=== PATIENT | male | born 1945 | race Caucasian/White ===

== ENCOUNTER 2016-12-13 00:47 | Outpatient (CLI) | payer MEDICARE, OTHER | END 2016-12-13 00:48 | disposition critical access hospital (66) | LOC: EMS 00:47 | PROVIDERS: ATTEND Surgery | DX: R06.00 Dyspnea, unspecified (principal) | CPT/HCPCS: A0425; A0429 ==

== ENCOUNTER 2016-12-13 01:25 | Emergency (ER) | payer MEDICARE, OTHER ==
[2016-12-13 01:50] LABS: BASOPHILS # (AUTO) 0.1 10^3/uL (0.0-0.1); BASOPHILS % (AUTO) 1.1 %; EOSINOPHILS # (AUTO) 0.4 10^3/uL (0.0-0.7); EOSINOPHILS % (AUTO) 4.3 %; HCT - HEMATOCRIT 40.4 % (42.0-52.0); LYMPHOCYTES % (AUTO) 19.3 %; MEAN CORPUSCULAR HEMOGLOBIN 26.4 pg (27.0-31.0); MEAN CORPUSCULAR HGB CONC 32.2 g/dL (32.0-36.0); MEAN PLATELET VOLUME 6.9 fL (7.4-11.4); MONOCYTES # (AUTO) 0.7 10^3/uL (0.0-1.0); MONOCYTES % (AUTO) 7.3 %; NEUTROPHILS # (AUTO) 6.9 10^3/uL (1.5-6.6); RED BLOOD COUNT 4.93 10^6/uL (4.70-6.10); RED CELL DISTRIBUTION WIDTH 14.7 % (12.0-15.0); UNCORRECTED WHITE BLOOD COUNT 10.2 x10^3/uL; WHITE BLOOD COUNT 10.2 x10^3/uL (4.8-10.8)
[2016-12-13 02:07] LABS: ALBUMIN/GLOBULIN RATIO 1.2 (1.0-2.2); BILIRUBIN,TOTAL 0.4 mg/dL (0.2-1.0); CALCIUM 8.6 mg/dL (8.5-10.3); CREATININE 1.4 mg/dL (0.6-1.2); TOTAL PROTEIN 7.1 g/dL (6.7-8.2)
[2016-12-13] MEDS ORDERED: POTASSIUM CHLORIDE 20 MEQ TABLET PO STA (02:15)
[2016-12-13] MEDS ORDERED: POTASSIUM CHLORIDE 20 MEQ TABLET PO ONE (02:15)
--- NOTE | 2016-12-13 02:25 | XRAY Preliminary Report ---
Exam: XR Chest 1 View IMPRESSION: Stable appearance of the chest without acute cardiopulmonary abnormality. [facility] SITE ID: [id number]
--- NOTE | 2016-12-13 02:28 | XRAY Report ---
EXAM: CHEST RADIOGRAPHY EXAM DATE: 12/13/2016 01:58 AM. CLINICAL HISTORY: Shortness of breath COMPARISON: 05/31/2016 TECHNIQUE: 1 view. FINDINGS: Lungs/Pleura: No focal opacities evident. No pleural effusion. No pneumothorax. Mediastinum: Within exam limitations, cardiomediastinal contour is normal. Other: Nor cervical spinal fixation hardware is partially visualized. There is mild degenerative rolon ge about the shoulder bilaterally. Degenerative change within the spine. IMPRESSION: Stable appearance of the chest without acute cardiopulmonary abnormality. [facility] Referring Provider Line: [phone] SITE ID: [id number]
--- NOTE | 2016-12-13 02:36 | ED Physician Documentation ---
PD HPI DYSPNEA - Stated complaint Stated Complaint: SOA - Chief complaint Chief Complaint: Resp - History obtained from History obtained from: Patient, Family, EMS - History of Present Illness Timing - onset: How many hours ago (3) Timing - onset during: Rest Timing - details: Gradual onset Improved by: O2, Inhaler/neb Worsened by: Exertion Associated symptoms: No: Fever, Cough, Chest pain / discomfort, Palpitations, Diaphoresis, Bilateral edema, Unilateral edema Similar symptoms before: Work up / diagnostics, Treatment, Follow up Recently seen: Not recently seen - Additional information Additional information: Patient is a 71 year old male with a history of dementia and copd who is presenting for shortness of breath. according to patient and ems, earlier today patient had an episode of shortness of breath. gave the patient a nebulizer treatment. When ems arrived patient was well appearing and at his baseline oxygen and mental status. Upon initial evaluation in the emergency department patient was asymptomatic. Review of Systems Unable to obtain: Dementia PD PAST MEDICAL HISTORY - Past Medical History Cardiovascular: Hypertension, High cholesterol Respiratory: COPD, Emphysema Neuro: Dementia, CVA Endocrine/Autoimmune: Type 2 diabetes GI: GERD : Benign prostate hypertrophy HEENT: None Psych: Depression Musculoskeletal: None Derm: None - Past Surgical History Past Surgical History: Yes Ortho: Spine surgery - Present Medications Home Medications: Ambulatory Orders Medication Instructions Recorded Confirmed Albuterol Sulfate [Proair Hfa 8.5 gm 05/31/16 Inhaler] Aspirin 81 mg 05/31/16 Betamethasone/Propylene Glyc 50 gm 05/31/16 [Betamethasone Dp Aug 0.05% Crm] Cholestyramine (with Sugar) 4 gm 05/31/16 [Cholestyramine Packet] Citalopram [CeleXA] 10 mg 05/31/16 Fluticasone/Vilanterol [Breo 1 each 05/31/16 Ellipta 200-25 Mcg INH] Furosemide [Lasix] 20 mg 05/31/16 Insulin Glargine [Lantus Solostar] 80 unit 05/31/16 Ipratropium/Albuterol Sulfate 3 ml 05/31/16 [Iprat-Albut 0.5-3(2.5) mg/3 ml] Ketoconazole 15 gm 05/31/16 Loratadine [Allergy Relief] 10 mg 05/31/16 Metformin HCl 500 mg 05/31/16 Omeprazole 20 mg 05/31/16 Ondansetron [Ondansetron Odt] 4 mg 05/31/16 Tamsulosin [Flomax] 0.4 mg 05/31/16 Theophylline Anhydrous [J[place]on-24] 200 mg 05/31/16 Tiotropium [place] [Spiriva] 18 mcg 05/31/16 Tobramycin/Dexamethasone [Tobradex 3.5 gm 05/31/16 Eye Ointment] Triamcinolone 0.5% Cream [Kenalog 15 applic 05/31/16 0.5% Cream] amLODIPine [Norvasc] 10 mg 05/31/16 diphenhydrAMINE [Benadryl] 25 mg 05/31/16 - Allergies Allergies/Adverse Reactions: Allergies Allergy/AdvReac Type Severity Reaction Status Date / Time Sulfa (Sulfonamide Allergy Intermediate Nausea Verified 12/13/16 01:33 Antibiotics) felodipine AdvReac Intermediate Dizziness Verified 12/13/16 01:33 fenofibrate nanocrystallized AdvReac Intermediate Cramps Verified 12/13/16 01:33 * [From Tricor] fenofibrate,micronized * AdvReac Intermediate Cramps Verified 12/13/16 01:33 [From Tricor] losartan [Losartan] AdvReac Intermediate Respiratory Verified 12/13/16 01:33 metoprolol AdvReac Intermediate Respiratory Verified 12/13/16 01:33 minoxidil AdvReac Intermediate Emesis Verified 12/13/16 01:33 clonidine AdvReac Mild Cramps Verified 12/13/16 01:33 donepezil [Donepezil] AdvReac Unknown Unknown Verified 12/13/16 01:33 iodine AdvReac Unknown Unknown Verified 12/13/16 01:33 furosemide AdvReac Nausea Verified 12/13/16 01:33 haloperidol AdvReac Hallucinati Verified 12/13/16 01:33 ons hydrochlorothiazide AdvReac Emesis Verified 12/13/16 01:33 - Social History Does the pt smoke?: No Smoking Status: Never smoker Does the pt drink ETOH?: No Does the pt have substance abuse?: No - Immunizations Immunizations are current?: Yes - POLST Patient has POLST: Yes PD ED PE NORMAL - Vitals Vital signs reviewed: Yes - General General: Alert and oriented X 3, No acute distress, Well developed/nourished - HEENT HEENT: Atraumatic, PERRL, Pharynx benign - Neck Neck: Supple, no meningeal sign, No JVD - Cardiac Cardiac: RRR, No murmur, No rub - Respiratory Respiratory: No respiratory distress - Abdomen Abdomen: Soft, Non tender, Non distended - Derm Derm: Normal color, Warm and dry, No rash - Extremities Extremities: No deformity, No tenderness to palpate, No edema, No calf tenderness / cord - Neuro Neuro: No motor deficit, No sensory deficit, Normal speech - Psych Psych: Normal affect Results - Vitals Vitals: Vital Signs - 24 hr 12/13/16 01:28 Temperature 36.6 C Heart Rate 76 Respiratory 22 Rate Blood Pressure 189/75 H O2 Saturation 97 Oxygen O2 Source Nasal cannula Oxygen Flow Rate 4 - EKG (time done) 0136 Rate: Rate (enter#) (71) Rhythm: NSR [place]: Normal Intervals: Normal AR QRS: Normal Compare to prior EKG: Unchanged from prior EKG - Labs Labs: Laboratory Tests 12/13/16 12/13/16 12/13/16 01:41 01:41 01:41 WBC 10.2 RBC 4.93 Hgb 13.0 L Hct 40.4 L MCV 82.0 MCH 26.4 L MCHC 32.2 RDW 14.7 Plt Count 258 MPV 6.9 L Neut # 6.9 H Lymph # 2.0 [place] # 0.7 Eos # 0.4 Baso # 0.1 Absolute Nucleated RBC 0.00 Nucleated RBCs 0.0 Sodium 140 Potassium 3.0 L Chloride 106 Carbon Dioxide 24 Anion Gap 10.0 BUN 14 Creatinine 1.4 H Estimated GFR (MDRD) 50 L Glucose 151 H Calcium 8.6 Total Bilirubin 0.4 AST 18 ALT 12 Alkaline Phosphatase 71 Troponin I < 0.04 B-Natriuretic Peptide Total Protein 7.1 Albumin 3.8 Globulin 3.3 Albumin/Globulin Ratio 1.2 Lipase 35 12/13/16 01:41 WBC RBC Hgb Hct MCV MCH MCHC RDW Plt Count MPV Neut # Lymph # [place] # Eos # Baso # Absolute Nucleated RBC Nucleated RBCs Sodium Potassium Chloride Carbon Dioxide Anion Gap BUN Creatinine Estimated GFR (MDRD) Glucose Calcium Total Bilirubin AST ALT Alkaline Phosphatase Troponin I B-Natriuretic Peptide 12 Total Protein Albumin Globulin Albumin/Globulin Ratio Lipase - Rads (name of study) chest x-ray Radiology: Final report received (no acute changes on chest x-ray) PD MEDICAL DECISION MAKING - ED course Complexity details: reviewed old records, reviewed results, re-evaluated patient , considered differential, d/w patient, d/w family ED course: Patient was seen and examined at bedside. Patient was on his O2 which he takes at home. patient was in no distress and no active wheezing was appreciated. ekg and chest x-ray were unchanged. previous results were reviewed and were within normal limits. Patient's diagnostics were also within normal limits. When patient's arrived the situation was discussed with her and it seems that she is begining to be getting overwhelmed by taking care of the patient and she stated at the follow up appointment with the pmd next week she would seek jail care. Patient required no further work up at this time and was stable for discharge with outpatient follow up. Departure - Departure Disposition: 01 Home, Self Care Clinical Impression: Moderate COPD (chronic obstructive pulmonary disease), Moderate chronic obstructive pulmonary disease Condition: Good Instructions: ED COPD Flare Follow-Up: Adrian Fletcher MD [Primary Care Provider] - Within 1 week Comments: Your diagnostics today were within normal limits. there were no major abnormalities appreciated. You should make sure that you stay away from triggers including smoking and allergens. You should go to your doctor appointment with your pmd. I would recommend a stress test and an echocardiogram. You should continue with your home medications. You may return to the emergency department at any time for new, worsening or uncontrollable symptoms.
[2016-12-13 02:54] VITALS: BP 177/84
== END 2016-12-13 02:54 | disposition home or self-care (01) ==
LOC: EDUNIT# → ED 01:25 → SUPCPDRO 01:25 → ED 02:54
DX: J44.9 Chronic obstructive pulmonary disease, unspecified (principal); Z99.81 Dependence on supplemental oxygen; F03.90 Unspecified dementia, unspecified severity, without behavioral disturbance, psychotic disturbance, mood disturbance, and anxiety; I10 Essential (primary) hypertension; E78.00 Pure hypercholesterolemia, unspecified; E11.9 Type 2 diabetes mellitus without complications; Z79.4 Long term (current) use of insulin; K21.9 Gastro-esophageal reflux disease without esophagitis; N40.0 Benign prostatic hyperplasia without lower urinary tract symptoms; Z86.73 Personal history of transient ischemic attack (TIA), and cerebral infarction without residual deficits; Z79.82 Long term (current) use of aspirin
CPT/HCPCS: 36415; 71010; 80053; 83690; 83880; 84484; 85025; 93005; 93010; 99284; A9270

== ENCOUNTER 2016-12-24 15:57 | Outpatient (CLI) | payer MEDICARE, OTHER | END 2016-12-24 15:58 | disposition critical access hospital (66) | DX: R06.02 Shortness of breath (principal) | CPT/HCPCS: A0425; A0429 ==

== ENCOUNTER 2016-12-24 16:39 | Emergency (ER) | payer MEDICARE, OTHER ==
[2016-12-24] MEDS ORDERED: IPRATROPIUM/ALBUTEROL 3 ML NEB INH STA (16:53)
[2016-12-24] MEDS ORDERED: predniSONE 20 MG TABLET PO STA (16:53)
--- NOTE | 2016-12-24 16:57 | ED Physician Documentation ---
PD HPI DYSPNEA - Stated complaint Stated Complaint: SOA - Chief complaint Chief Complaint: Resp - History obtained from History obtained from: Patient, EMS - History of Present Illness Timing - onset: How many months ago (3) Timing - onset during: Rest Timing - duration: Months (3) Timing - details: Gradual onset Pain level max: 0 Pain level now: 0 Inciting event(s): No: Out of meds, URI, Allergic rxn/anaphylaxis, Exercise Improved by: O2 (on 3L NC at home) Worsened by: Exertion Associated symptoms: Wheezing, Other (fell 4 days ago and landed on the R ribs) . No: Fever, Cough, Hemoptysis Similar symptoms before: Diagnosis (COPD) Recently seen: Not recently seen Review of Systems Ten Systems: 10 systems reviewed and negative Constitutional: denies: Fever, Chills Ears: denies: Ear pain Nose: denies: Rhinorrhea / runny nose, Congestion Throat: denies: Sore throat Cardiac: denies: Chest pain / pressure Respiratory: reports: Cough (mild). denies: Hemoptysis, Wheezing GI: denies: Abdominal Pain, Nausea, Vomiting, Diarrhea Skin: denies: Rash Musculoskeletal: denies: Neck pain, Back pain Neurologic: denies: Headache PD PAST MEDICAL HISTORY - Past Medical History Cardiovascular: Hypertension, High cholesterol Respiratory: COPD, Emphysema Neuro: Dementia, CVA Endocrine/Autoimmune: Type 2 diabetes GI: GERD : Benign prostate hypertrophy HEENT: None Psych: Depression Musculoskeletal: None Derm: None - Past Surgical History Past Surgical History: Yes Ortho: Spine surgery - Present Medications Home Medications: Ambulatory Orders Medication Instructions Recorded Confirmed Albuterol Sulfate [Proair Hfa 8.5 gm INH DAILY 05/31/16 Inhaler] Aspirin 81 mg PO DAILY 05/31/16 Cholestyramine (with Sugar) 4 gm PO BID 05/31/16 [Cholestyramine Packet] Citalopram [CeleXA] 10 mg PO DAILY 05/31/16 Fluticasone/Vilanterol [Breo 1 each 05/31/16 Ellipta 200-25 Mcg INH] Furosemide [Lasix] 20 mg PO DAILY 05/31/16 Insulin Glargine [Lantus Solostar] 80 unit SUBQ DAILY 05/31/16 Ipratropium/Albuterol Sulfate 3 ml INH PRN PRN 05/31/16 [Iprat-Albut 0.5-3(2.5) mg/3 ml] Metformin HCl 500 mg PO BID 05/31/16 Omeprazole 20 mg PO DAILY 05/31/16 Tamsulosin [Flomax] 0.4 mg PO DAILY 05/31/16 Tiotropium [place] [Spiriva] 18 mcg PO DAILY 05/31/16 amLODIPine [Norvasc] 10 mg 05/31/16 diphenhydrAMINE [Benadryl] 25 mg PO DAILY 05/31/16 Cholestyramine/Aspartame 4 gm PO BID #60 packet 12/24/16 [Cholestyramine Light Packet] Prednisone 20 mg PO DAILY #5 tablet 12/24/16 - Allergies Allergies/Adverse Reactions: Allergies Allergy/AdvReac Type Severity Reaction Status Date / Time Sulfa (Sulfonamide Allergy Intermediate Nausea Verified 12/24/16 16:57 Antibiotics) felodipine AdvReac Intermediate Dizziness Verified 12/24/16 16:57 fenofibrate nanocrystallized AdvReac Intermediate Cramps Verified 12/24/16 16:57 * [From Tricor] fenofibrate,micronized * AdvReac Intermediate Cramps Verified 12/24/16 16:57 [From Tricor] losartan [Losartan] AdvReac Intermediate Respiratory Verified 12/24/16 16:57 metoprolol AdvReac Intermediate Respiratory Verified 12/24/16 16:57 minoxidil AdvReac Intermediate Emesis Verified 12/24/16 16:57 clonidine AdvReac Mild Cramps Verified 12/24/16 16:57 donepezil [Donepezil] AdvReac Unknown Unknown Verified 12/24/16 16:57 iodine AdvReac Unknown Unknown Verified 12/24/16 16:57 furosemide AdvReac Nausea Verified 12/24/16 16:57 haloperidol AdvReac Hallucinati Verified 12/24/16 16:57 ons hydrochlorothiazide AdvReac Emesis Verified 12/24/16 16:57 - Social History Does the pt smoke?: No Smoking Status: Never smoker Does the pt drink ETOH?: No Does the pt have substance abuse?: No - Immunizations Immunizations are current?: Yes - POLST Patient has POLST: Yes PD ED PE NORMAL - Vitals Vital signs reviewed: Yes - General General: Alert and oriented X 3, No acute distress - HEENT HEENT: Ears normal, Moist mucous membranes, Pharynx benign - Neck Neck: Supple, no meningeal sign - Cardiac Cardiac: RRR, Strong equal pulses - Respiratory Respiratory: No respiratory distress, Other (dimished BS bilaterally) - Abdomen Abdomen: Soft, Non tender, Non distended - Back Back: No spinal TTP - Derm Derm: Warm and dry, No rash - Extremities Extremities: No calf tenderness / cord, Other (1+ B LE edema) - Neuro Neuro: Alert and oriented X 3 - Psych Psych: Normal mood, Normal affect Results - Vitals Vitals: Vital Signs - 24 hr 12/24/16 12/24/16 12/24/16 16:42 17:05 17:45 Temperature 36.5 C Heart Rate 78 73 73 Respiratory 20 20 20 Rate Blood Pressure 183/78 H O2 Saturation 98 12/24/16 18:11 Temperature 36.8 C Heart Rate 81 Respiratory 19 Rate Blood Pressure 175/69 H O2 Saturation 98 Oxygen O2 Source Nasal cannula Oxygen Flow Rate 3 - Labs Labs: Laboratory Tests 12/24/16 12/24/16 17:23 17:23 WBC 12.4 H RBC 5.15 Hgb 13.9 L Hct 41.7 L MCV 81.0 MCH 26.9 L MCHC 33.2 RDW 14.8 Plt Count 257 MPV 7.2 L Neut # 8.9 H Lymph # 2.1 [place] # 1.0 Eos # 0.3 Baso # 0.1 Absolute Nucleated RBC 0.01 Nucleated RBCs 0.1 Sodium 139 Potassium 2.9 L Chloride 101 Carbon Dioxide 28 Anion Gap 10.0 BUN 15 Creatinine 1.7 H Estimated GFR (MDRD) 40 L Glucose 154 H Calcium 8.9 Total Bilirubin 0.4 AST 17 ALT 16 Alkaline Phosphatase 81 Total Protein 7.7 Albumin 4.0 Globulin 3.7 Albumin/Globulin Ratio 1.1 Lipase 30 - Rads (name of study) cxr Radiology: Prelim report reviewed, EMP read contemporaneously, See rad report ( Mild bronchial wall thickening which can be seen in bronchitis or reactive airway disease without focal consolidation. ) PD MEDICAL DECISION MAKING - ED course Complexity details: reviewed results, re-evaluated patient, considered differential, d/w patient, d/w family ED course: Patient is a 71-year-old male who presents to the emergency department with dyspnea today. No acute findings on x-ray. Mild leukocytosis, but this appears chronic for the patient. No fevers. Improved with nebulizer treatment and steroids. Also found to be hypokalemic, given potassium here. He feels well and would like to go home at this time. He is also out of his cholestyramine, will refill this for him. Patient with good understanding of and agreement to plan and is comfortable going home at this time This document was made in part using voice recognition software. While efforts are made to proofread this document, sound alike and grammatical errors may occur. Patient and family counseled regarding signs and symptoms for which I believe and urgent re-evaluation would be necessary. No pneumonia, no ACS, no PE Departure - Departure Disposition: 01 Home, Self Care Clinical Impression: Moderate COPD (chronic obstructive pulmonary disease), Hypokalemia Condition: Good Instructions: ED COPD Flare, ED Potassium Deficiency Follow-Up: Adrian Fletcher MD [Primary Care Provider] - Within 1 week Prescriptions: Cholestyramine/Aspartame [Cholestyramine Light Packet] 4 gm PO BID #60 packet Prednisone 20 mg PO DAILY #5 tablet Comments: Return if you worsen. Discharge Date/Time: 12/24/16 18:37
[2016-12-24] MEDS ORDERED: IPRATROPIUM/ALBUTEROL 3 ML NEB INH ONE (16:58)
[2016-12-24] MEDS ORDERED: ALBUTEROL NEB 2.5 MG/3 ML INH STA (17:16)
[2016-12-24] MEDS ORDERED: predniSONE 20 MG TABLET ONE (17:25)
[2016-12-24] MEDS ORDERED: ALBUTEROL NEB 2.5 MG/3 ML INH ONE (17:48)
[2016-12-24 17:49] LABS: BASOPHILS # (AUTO) 0.1 10^3/uL (0.0-0.1); EOSINOPHILS # (AUTO) 0.3 10^3/uL (0.0-0.7); EOSINOPHILS % (AUTO) 2.3 %; HCT - HEMATOCRIT 41.7 % (42.0-52.0); HGB - HEMOGLOBIN 13.9 g/dL (14.0-18.0); LYMPHOCYTES # (AUTO) 2.1 10^3/uL (1.5-3.5); LYMPHOCYTES % (AUTO) 16.6 %; MEAN CORPUSCULAR HEMOGLOBIN 26.9 pg (27.0-31.0); MEAN CORPUSCULAR HGB CONC 33.2 g/dL (32.0-36.0); MEAN PLATELET VOLUME 7.2 fL (7.4-11.4); MONOCYTES % (AUTO) 7.7 %; NEUTROPHILS # (AUTO) 8.9 10^3/uL (1.5-6.6); NEUTROPHILS % (AUTO) 72.4 %; NUCLEATED RED BLOOD CELLS AUTO 0.1 /100WBC; RED BLOOD COUNT 5.15 10^6/uL (4.70-6.10); RED CELL DISTRIBUTION WIDTH 14.8 % (12.0-15.0); UNCORRECTED WHITE BLOOD COUNT 12.4 x10^3/uL; WHITE BLOOD COUNT 12.4 x10^3/uL (4.8-10.8)
[2016-12-24 18:01] LABS: ALBUMIN/GLOBULIN RATIO 1.1 (1.0-2.2); BILIRUBIN,TOTAL 0.4 mg/dL (0.2-1.0); CALCIUM 8.9 mg/dL (8.5-10.3); CREATININE 1.7 mg/dL (0.6-1.2); POTASSIUM 2.9 mmol/L (3.5-5.0); TOTAL PROTEIN 7.7 g/dL (6.7-8.2)
[2016-12-24] MEDS ORDERED: POTASSIUM BICARB 25 MEQ TABLET PO STA (18:06)
[2016-12-24] MEDS ORDERED: POTASSIUM BICARB 25 MEQ TABLET PO ONE (18:08)
--- NOTE | 2016-12-24 18:10 | XRAY Preliminary Report ---
Exam: XR Chest 2 View PA/LAT IMPRESSION: 1. Mild bronchial wall thickening which can be seen in bronchitis or reactive airway disease without focal consolidation. [facility] SITE ID: [id number]
--- NOTE | 2016-12-24 18:12 | XRAY Report ---
EXAM: CHEST RADIOGRAPHY EXAM DATE: 12/24/2016 05:35 PM. CLINICAL HISTORY: Dyspnea, cough. COMPARISON: Chest x-ray 12/13/2016. TECHNIQUE: 2 views. FINDINGS: Lungs/Pleura: Mild hyperinflation without pleural effusion or pneumothorax. Mild bronchial wall thick ening without focal consolidation. Mediastinum: Normal heart size with atherosclerotic calcification. Other: Status post cervicothoracic junction surgery. IMPRESSION: 1. Mild bronchial wall thickening which can be seen in bronchitis or reactive airway disease without focal consolidation. [facility] Referring Provider Line: [phone] SITE ID: [id number]
[2016-12-24 18:15] VITALS: BP 175/69
== END 2016-12-24 18:37 | disposition home or self-care (01) ==
LOC: EDUNIT# → SUPCPDRO 16:39 → ED 16:39
DX: J44.9 Chronic obstructive pulmonary disease, unspecified (principal); E87.6 Hypokalemia; D72.829 Elevated white blood cell count, unspecified; F03.90 Unspecified dementia, unspecified severity, without behavioral disturbance, psychotic disturbance, mood disturbance, and anxiety; Z86.73 Personal history of transient ischemic attack (TIA), and cerebral infarction without residual deficits; K21.9 Gastro-esophageal reflux disease without esophagitis; N40.0 Benign prostatic hyperplasia without lower urinary tract symptoms; Z79.82 Long term (current) use of aspirin
CPT/HCPCS: 36415; 71020; 80053; 83690; 85025; 93005; 93010; 94640; 99284; A9270; J7512; J7613; J7620

== ENCOUNTER 2017-02-18 02:37 | Outpatient (CLI) | payer MEDICARE, OTHER | END 2017-02-18 02:38 | disposition critical access hospital (66) | LOC: EMS 02:37 | PROVIDERS: ATTEND Surgery | DX: S09.90XA Unspecified injury of head, initial encounter (principal); W22.8XXA Striking against or struck by other objects, initial encounter; W06.XXXA Fall from bed, initial encounter; Y92.092 Bedroom in other non-institutional residence as the place of occurrence of the external cause | CPT/HCPCS: A0425; A0429 ==

== ENCOUNTER 2017-02-18 03:01 | Emergency (ER) | payer MEDICARE, OTHER ==
--- NOTE | 2017-02-18 04:26 | XRAY Preliminary Report ---
Exam: XR Chest 1 View IMPRESSION: 1. No acute abnormality seen in the chest. [facility] SITE ID: [id number]
--- NOTE | 2017-02-18 04:28 | CT Preliminary Report ---
Exam: CT Head W/O IMPRESSION: Old left parietal lobe infarct. No acute intracranial process identified. [facility] SITE ID: [id number]
--- NOTE | 2017-02-18 04:29 | XRAY Report ---
EXAM: CHEST RADIOGRAPHY EXAM DATE: 02/18/2017 04:19 AM. CLINICAL HISTORY: Syncope. COMPARISON: 12/24/2016. TECHNIQUE: 1 view. FINDINGS: Lungs/Pleura: No alveolar consolidation or pleural effusion. No pneumothorax. Mediastinum: Within exam limitations, cardiomediastinal contour is normal. Other: Postoperative changes in the cervical spine. IMPRESSION: 1. No acute abnormality seen in the chest. [facility] Referring Provider Line: [phone] SITE ID: [id number]
--- NOTE | 2017-02-18 04:31 | CT Report ---
EXAM: CT HEAD EXAM DATE: 02/18/2017 04:18 AM. CLINICAL HISTORY: Unwitnessed fall. COMPARISON: Head CT 08/05/2013. TECHNIQUE: Multiaxial CT images were obtained from the foramen magnum to the vertex. IV contrast: Non e. Reformats: Coronal. In accordance with CT protocol optimization, one or more of the following dose reduction techniques w ere utilized for this exam: automated exposure control, adjustment of mA and/or KV based on patient s ize, or use of iterative reconstructive technique. FINDINGS: Parenchyma: No intraparenchymal hemorrhage. No evidence of mass, midline shift, or CT findings of acu te infarction. Old left parietal lobe infarct, unchanged. Prominent nonspecific white matter hypodens ity, likely small vessel ischemia, also unchanged. Extraaxial Spaces: Normal for age. No subdural or epidural collections identified. Ventricles: Normal in size and position. Sinuses: Imaged paranasal sinuses, orbits, and mastoids show no significant abnormality. Prior endosc opic sinus surgery. Bones: No evidence of fracture or calvarial defect. Other: No change since the prior study. IMPRESSION: Old left parietal lobe infarct. No acute intracranial process identified. [facility] Referring Provider Line: [phone] SITE ID: [id number]
[2017-02-18 04:32] LABS: BASOPHILS # (AUTO) 0.2 10^3/uL (0.0-0.1); BASOPHILS % (AUTO) 1.4 %; EOSINOPHILS # (AUTO) 0.4 10^3/uL (0.0-0.7); EOSINOPHILS % (AUTO) 3.9 %; HCT - HEMATOCRIT 37.7 % (42.0-52.0); HGB - HEMOGLOBIN 12.5 g/dL (14.0-18.0); LYMPHOCYTES # (AUTO) 2.1 10^3/uL (1.5-3.5); LYMPHOCYTES % (AUTO) 18.7 %; MEAN CORPUSCULAR HEMOGLOBIN 26.9 pg (27.0-31.0); MEAN CORPUSCULAR HGB CONC 33.2 g/dL (32.0-36.0); MEAN CORPUSCULAR VOLUME 81.1 fL (80.0-94.0); MEAN PLATELET VOLUME 6.6 fL (7.4-11.4); MONOCYTES # (AUTO) 0.9 10^3/uL (0.0-1.0); MONOCYTES % (AUTO) 7.6 %; NEUTROPHILS # (AUTO) 7.7 10^3/uL (1.5-6.6); NEUTROPHILS % (AUTO) 68.4 %; RED BLOOD COUNT 4.65 10^6/uL (4.70-6.10); RED CELL DISTRIBUTION WIDTH 15.1 % (12.0-15.0); UNCORRECTED WHITE BLOOD COUNT 11.2 x10^3/uL; WHITE BLOOD COUNT 11.2 x10^3/uL (4.8-10.8)
--- NOTE | 2017-02-18 04:33 | CT Preliminary Report ---
Exam: CT Cervical Spine W/O IMPRESSION: No fracture is identified in the cervical spine. Solid ACDF from C3-C7. Right carotid priscila nt. [facility] SITE ID: [id number]
--- NOTE | 2017-02-18 04:36 | CT Report ---
EXAM: CT CERVICAL SPINE WITHOUT CONTRAST DATE: 02/18/2017 04:17 AM HISTORY: Fall. Neck pain. COMPARISONS: 08/05/2013. TECHNIQUE: Thin-section axial images were acquired of the cervical spine without contrast. Post-proce ssing: Coronal and sagittal reformats. Other: None. In accordance with CT protocol optimization, one or more of the following dose reduction techniques w ere utilized for this exam: automated exposure control, adjustment of mA and/or KV based on patient s ize, or use of iterative reconstructive technique. FINDINGS: Alignment: Normal. No scoliosis or spondylolisthesis. Bones: No fracture or bone lesion. Interspace Levels/Facets: Solid-appearing anterior instrumented ACDF from C3-C7, inclusive. Severe bilateral foraminal stenosis at C6-C7. The appearance is unchanged. Musculature: Normal. No fatty atrophy. Other: Right carotid stent. Left carotid bifurcation calcification. Visualized lung apices are clear. IMPRESSION: No fracture is identified in the cervical spine. Solid ACDF from C3-C7. Right carotid priscila nt. [facility] Referring Provider Line: [phone] SITE ID: [id number]
[2017-02-18 04:48] LABS: ALBUMIN/GLOBULIN RATIO 1.1 (1.0-2.2); BILIRUBIN,TOTAL 0.2 mg/dL (0.2-1.0); CALCIUM 8.5 mg/dL (8.5-10.3); CREATININE 1.3 mg/dL (0.6-1.2); POTASSIUM 2.9 mmol/L (3.5-5.0); TOTAL PROTEIN 6.6 g/dL (6.7-8.2)
[2017-02-18 04:58] LABS: BILIRUBIN,URINE NEGATIVE (NEGATIVE)
[2017-02-18 05:04] LABS: UA w/ MICROSCOPIC CHARGE YES
[2017-02-18 05:05] LABS: UR CULTURE IF IND NOT INDICATED; WBC,URINE 0-3 /HPF (0-3)
[2017-02-18] MEDS ORDERED: POTASSIUM CHLORIDE 20 MEQ TABLET PO STA (05:15)
[2017-02-18] MEDS ORDERED: POTASSIUM BICARB 25 MEQ TABLET PO ONE (05:44)
[2017-02-18] MEDS ORDERED: POTASSIUM BICARB 25 MEQ TABLET PO STA (05:44)
[2017-02-18 05:54] VITALS: BP 176/77
--- NOTE | 2017-02-18 06:06 | ED Physician Documentation ---
History of Present Illness - Stated complaint Stated Complaint: GLF/HEAD INJURY - Chief complaint Chief Complaint: Laceration - History obtained from History obtained from: Patient - Additonal information Additional information: This patient is a 71-year-old man from [facility]. He was sent in for evaluation of a fall and possible injury. There is no complaints of preceding illness or complaints such as fever, chills, nausea, vomiting constipation or diarrhea. History is obtained by the patient, the medical records and also by his who accompanied the patient to the emergency. He has had a previous stroke in the past and currently has moderate to severe dementia with behavioral issues. He also has a history of COPD, diabetes, hypertension and has had a Arianne fundoplication in the past. The patient fell tonight when he slipped out of bed. He denies any syncope but he is not reliable from memory perspective. Review of systems: For pertinent positive and negatives in the review of systems please see history of present illness. Otherwise all other systems have been reviewed and are negative. Dragon disclaimer: Parts of this medical record were created using voice recognition technology. Because of the inherent limitations of this system occasional same sounding word substitutions do occur and persist despite proofreading. Please read the document for context. Review of Systems Unable to obtain: Dementia Ten Systems: 10 systems reviewed and negative Constitutional: denies: Fever, Chills, Myalgias Eyes: denies: Loss of vision Ears: denies: Loss of hearing, Ear pain Nose: denies: Rhinorrhea / runny nose, Foreign Body Throat: denies: Dental pain / toothache, Oral lesions / sores, Sore throat Cardiac: denies: Chest pain / pressure, Palpitations Respiratory: denies: Dyspnea, Cough GI: denies: Abdominal Pain, Abdominal Swelling, Vomiting : denies: Dysuria, Frequency Musculoskeletal: denies: Neck pain, Back pain, Extremity pain, Joint pain PD PAST MEDICAL HISTORY - Past Medical History Past Medical History: Yes Cardiovascular: Hypertension, High cholesterol Respiratory: COPD, Emphysema Neuro: Dementia, CVA Endocrine/Autoimmune: Type 2 diabetes GI: GERD : Benign prostate hypertrophy HEENT: None Psych: Depression Musculoskeletal: None Derm: None - Past Surgical History Past Surgical History: Yes Ortho: Spine surgery - Present Medications Home Medications: Ambulatory Orders Medication Instructions Recorded Confirmed Albuterol Sulfate [Proair Hfa 8.5 gm INH DAILY 05/31/16 Inhaler] Aspirin 81 mg PO DAILY 05/31/16 02/18/17 Cholestyramine (with Sugar) 4 gm PO BID 05/31/16 [Cholestyramine Packet] Fluticasone/Vilanterol [Breo 1 each 05/31/16 Ellipta 200-25 Mcg INH] Furosemide [Lasix] 20 mg PO DAILY 05/31/16 02/18/17 Insulin Glargine [Lantus Solostar] 80 unit SUBQ DAILY 05/31/16 02/18/17 Ipratropium/Albuterol Sulfate 3 ml INH PRN PRN 05/31/16 02/18/17 [Iprat-Albut 0.5-3(2.5) mg/3 ml] Omeprazole 20 mg PO DAILY 05/31/16 02/18/17 Tamsulosin [Flomax] 0.4 mg PO DAILY 05/31/16 02/18/17 Tiotropium [place] [Spiriva] 18 mcg PO DAILY 05/31/16 02/18/17 amLODIPine [Norvasc] 10 mg PO DAILY 05/31/16 02/18/17 diphenhydrAMINE [Benadryl] 25 mg PO DAILY 05/31/16 02/18/17 Cholestyramine/Aspartame 4 gm PO BID #60 packet 12/24/16 [Cholestyramine Light Packet] Clonazepam 0.5 mg PO DAILY PRN 02/18/17 02/18/17 OLANZapine [ZyPREXA] 1 tab PO DAILY 02/18/17 02/18/17 Olanzapine 5 mg PO DAILY PRN 02/18/17 02/18/17 Potassium Chloride 20 meq PO DAILY #14 packet 02/18/17 - Allergies Allergies/Adverse Reactions: Allergies Allergy/AdvReac Type Severity Reaction Status Date / Time Sulfa (Sulfonamide Allergy Intermediate Nausea Verified 02/18/17 03:07 Antibiotics) felodipine AdvReac Intermediate Dizziness Verified 02/18/17 03:07 fenofibrate nanocrystallized AdvReac Intermediate Cramps Verified 02/18/17 03:07 * [From Tricor] fenofibrate,micronized * AdvReac Intermediate Cramps Verified 02/18/17 03:07 [From Tricor] losartan [Losartan] AdvReac Intermediate Respiratory Verified 02/18/17 03:07 metoprolol AdvReac Intermediate Respiratory Verified 02/18/17 03:07 minoxidil AdvReac Intermediate Emesis Verified 02/18/17 03:07 clonidine AdvReac Mild Cramps Verified 02/18/17 03:07 donepezil [Donepezil] AdvReac Unknown Unknown Verified 02/18/17 03:07 iodine AdvReac Unknown Unknown Verified 02/18/17 03:07 furosemide AdvReac Nausea Verified 02/18/17 03:07 haloperidol AdvReac Hallucinati Verified 02/18/17 03:07 ons hydrochlorothiazide AdvReac Emesis Verified 02/18/17 03:07 - Social History Does the pt smoke?: No Smoking Status: Never smoker Does the pt drink ETOH?: No Does the pt have substance abuse?: No - Immunizations Immunizations are current?: Yes - POLST Patient has POLST: Yes PD ED PE NORMAL - Vitals Vital signs reviewed: Yes - General General: No acute distress, Well developed/nourished, Other (Demented elderly male in no apparent distress. He is awake and alert but disoriented) - HEENT HEENT: Other (In general his head is atraumatic however he does have a chin contusion.) - Neck Neck: Supple, no meningeal sign, No bony TTP, No adenopathy, No JVD, No bruit - Cardiac Cardiac: Other (Irregularly irregular) - Respiratory Respiratory: No respiratory distress, Clear bilaterally - Abdomen Abdomen: Normal bowel sounds, Soft, Non tender, Non distended - Male Male : Other (Normal exam) - Back Back: No CVA TTP - Derm Derm: Other (2 small skin tears 1 over the left olecranon and another over the left forearm1 of the olecranon is approximately 1.5 cm in length going over the forearm 8.5 cm in length) - Extremities Extremities: No deformity, No tenderness to palpate, Normal ROM s pain - Neuro Neuro: No motor deficit, No sensory deficit Results - Vitals Vitals: Vital Signs - 24 hr 02/18/17 02/18/17 02/18/17 03:07 04:36 05:53 Temperature 36.6 C Heart Rate 70 74 73 Respiratory 18 20 16 Rate Blood Pressure 192/75 H 196/76 H 176/77 H O2 Saturation 99 100 99 Oxygen O2 Source Nasal cannula Oxygen Flow Rate 2 - Labs Labs: Laboratory Tests 02/18/17 02/18/17 02/18/17 04:20 04:20 04:20 WBC 11.2 H RBC 4.65 L Hgb 12.5 L Hct 37.7 L MCV 81.1 MCH 26.9 L MCHC 33.2 RDW 15.1 H Plt Count 248 MPV 6.6 L Neut # 7.7 H Lymph # 2.1 [place] # 0.9 Eos # 0.4 Baso # 0.2 H Absolute Nucleated RBC 0.00 Nucleated RBCs 0.0 Sodium 140 Potassium 2.9 L Chloride 104 Carbon Dioxide 28 Anion Gap 8.0 BUN 15 Creatinine 1.3 H Estimated GFR (MDRD) 55 L Glucose 234 H Calcium 8.5 Total Bilirubin 0.2 AST 20 ALT 19 Alkaline Phosphatase 84 Troponin I < 0.04 B-Natriuretic Peptide Total Protein 6.6 L Albumin 3.4 Globulin 3.2 Albumin/Globulin Ratio 1.1 Lipase 25 Urine Color Urine Clarity Urine pH Ur Specific [place] Urine Protein Urine Glucose (UA) Urine Ketones Urine Occult Blood Urine Nitrite Urine Bilirubin Urine Urobilinogen Ur Leukocyte Esterase Urine RBC Urine WBC Ur Squamous Epith Cells Urine Bacteria Ur Microscopic Review Urine Culture Comments 02/18/17 02/18/17 04:20 04:44 WBC RBC Hgb Hct MCV MCH MCHC RDW Plt Count MPV Neut # Lymph # [place] # Eos # Baso # Absolute Nucleated RBC Nucleated RBCs Sodium Potassium Chloride Carbon Dioxide Anion Gap BUN Creatinine Estimated GFR (MDRD) Glucose Calcium Total Bilirubin AST ALT Alkaline Phosphatase Troponin I B-Natriuretic Peptide 17 Total Protein Albumin Globulin Albumin/Globulin Ratio Lipase Urine Color YELLOW Urine Clarity CLEAR Urine pH 6.0 Ur Specific [place] 1.025 Urine Protein 100 H Urine Glucose (UA) 500 H Urine Ketones NEGATIVE Urine Occult Blood SMALL H Urine Nitrite NEGATIVE Urine Bilirubin NEGATIVE Urine Urobilinogen 0.2 (NORMAL) Ur Leukocyte Esterase NEGATIVE Urine RBC 0-5 Urine WBC 0-3 Ur Squamous Epith Cells NONE SEEN Urine Bacteria None Seen Ur Microscopic Review INDICATED Urine Culture Comments NOT INDICATED PD MEDICAL DECISION MAKING - ED course Complexity details: reviewed old records, reviewed results, re-evaluated patient , d/w patient ED course: Patient is a 71-year-old male with a history of moderate to severe dementia. The patient had a fall tonight when he slipped out of bed he said. From a injuries perspective he has a small contusion to the chin and a little soft tissue swelling to the nose. He also has superficial partial skin tear of the left elbow and forearm. Other than these findings there is no evidence of any severe traumatic injury. CT scan of the head and neck were performed and show age-related changes without any evidence of acute fracture. Chest x-ray shows no acute intrathoracic disease. An EKG was done Anesthesia EKG although is read as atrial fibrillation with rapid ventricular response is really only 70 bpm. This EKG demonstrates normal sinus rhythm without any obvious ST elevation , depression or T-wave inversion. Chest x-ray shows no acute intrathoracic disease. Blood work on this patient demonstrates mild chronic kidney disease and a mild hypokalemia which is ongoing. Patient's potassium is 2.9. He was supplemented with 40 M EQ of oral potassium and will be discharged to home on a short course of oral potassium at 20 MBq per day. In regards to his lacerations of the left elbow and arm the areas are cleansed and treated with topical Dermabond. There is good approximation hemostasis. At this point in time the patient is deemed stable to be discharged to home. Disposition: To home Clinical impression: 1. Mechanical fall 2. Chin contusion 3. Left nasal bridge contusion 4.Small skin tears to the left elbow and the forearm status post Dermabond closure 5. Mild asymptomatic hypokalemia-treated Departure - Departure Disposition: 01 Home, Self Care Clinical Impression: Laceration, Hypokalemia due to inadequate potassium intake Fall Qualifiers: Encounter type: initial encounter Qualified Code(s): W19.XXXA - Unspecified fall, initial encounter Contusion of chin Qualifiers: Encounter type: initial encounter Qualified Code(s): S00.83XA - Contusion of other part of head, initial encounter Condition: Good Instructions: Bruises Contusions, Hypokalemia Dc, ED Laceration Ext Skin Glue Prescriptions: Potassium Chloride 20 meq PO DAILY #14 packet
== END 2017-02-18 06:27 | disposition home or self-care (01) ==
LOC: EDUNIT# → ED 03:01
DX: S00.83XA Contusion of other part of head, initial encounter (principal); S00.33XA Contusion of nose, initial encounter; S51.012A Laceration without foreign body of left elbow, initial encounter; S51.812A Laceration without foreign body of left forearm, initial encounter; W01.0XXA Fall on same level from slipping, tripping and stumbling without subsequent striking against object, initial encounter; W06.XXXA Fall from bed, initial encounter; Y92.89 Other specified places as the place of occurrence of the external cause; E87.6 Hypokalemia; I10 Essential (primary) hypertension; E11.9 Type 2 diabetes mellitus without complications; F03.90 Unspecified dementia, unspecified severity, without behavioral disturbance, psychotic disturbance, mood disturbance, and anxiety; Z79.4 Long term (current) use of insulin
CPT/HCPCS: 36415; 70450; 71010; 72125; 80053; 81001; 83690; 83880; 84484; 85025; 93005; 99284; 99285; A9270; 81003; 87086

== ENCOUNTER 2017-03-19 05:29 | Outpatient (CLI) | payer MEDICARE, OTHER | END 2017-03-19 05:30 | disposition EMS.NT | LOC: EMS 05:29 | PROVIDERS: ATTEND Surgery | DX: Z03.89 Encounter for observation for other suspected diseases and conditions ruled out (principal) ==

== ENCOUNTER 2018-03-15 17:58 | Outpatient (CLI) | payer MEDICARE, OTHER | END 2018-03-15 17:59 | disposition critical access hospital (66) | LOC: EMS 17:58 | PROVIDERS: ATTEND Surgery | DX: R07.9 Chest pain, unspecified (principal); R11.2 Nausea with vomiting, unspecified | CPT/HCPCS: A0425; A0427 ==

== ENCOUNTER 2018-03-15 18:18 | Emergency (ER) | payer MEDICARE, OTHER ==
[2018-03-15] MEDS ORDERED: MORPHINE 10 MG/ML VIAL IVP STA (18:31)
[2018-03-15] MEDS ORDERED: ONDANSETRON 4 MG/2 ML VIAL IVP STA (18:31)
--- NOTE | 2018-03-15 18:34 | ED Physician Documentation ---
PD HPI CHEST PAIN - Stated complaint Stated Complaint: CHEST PAIN - History obtained from History obtained from: Patient - History of Present Illness Timing - onset: Today (About 5:00 he developed burning central upper abdominal pain radiating the chest associated with vomiting. He had just eaten. His EKG prehospital was normal. He is in a assisted-living facility recovering from a stroke. Per the med list she is not anticoagulated. He is quite tender in the right upper quadrant, he thinks he has had his gallbladder out but does not have a corresponding cholecystectomy scar, he has had a low laparotomy he does not remember what that is from.) Review of Systems Ten Systems: 10 systems reviewed and negative Constitutional: denies: Fever, Chills Cardiac: reports: Chest pain / pressure Respiratory: denies: Dyspnea GI: reports: Abdominal Pain, Nausea, Vomiting. denies: Diarrhea : denies: Dysuria, Frequency PD PAST MEDICAL HISTORY - Past Medical History Cardiovascular: Hypertension, High cholesterol Respiratory: COPD, Emphysema Endocrine/Autoimmune: Type 2 diabetes GI: GERD : Benign prostate hypertrophy HEENT: None Psych: Depression Musculoskeletal: None Derm: None - Past Surgical History Past Surgical History: Yes Ortho: Spine surgery - Present Medications Home Medications: Ambulatory Orders Medication Instructions Recorded Confirmed Albuterol Sulfate [Proair Hfa 8.5 gm INH DAILY 05/31/16 Inhaler] Aspirin 81 mg PO DAILY 05/31/16 02/18/17 Cholestyramine (with Sugar) 4 gm PO BID 05/31/16 [Cholestyramine Packet] Fluticasone/Vilanterol [Breo 1 each 05/31/16 Ellipta 200-25 Mcg INH] Furosemide [Lasix] 20 mg PO DAILY 05/31/16 02/18/17 Insulin Glargine [Lantus Solostar] 80 unit SUBQ DAILY 05/31/16 02/18/17 Ipratropium/Albuterol Sulfate 3 ml INH PRN PRN 05/31/16 02/18/17 [Iprat-Albut 0.5-3(2.5) mg/3 ml] Omeprazole 20 mg PO DAILY 05/31/16 02/18/17 Tamsulosin [Flomax] 0.4 mg PO DAILY 05/31/16 02/18/17 Tiotropium [place] [Spiriva] 18 mcg PO DAILY 05/31/16 02/18/17 amLODIPine [Norvasc] 10 mg PO DAILY 05/31/16 02/18/17 diphenhydrAMINE [Benadryl] 25 mg PO DAILY 05/31/16 02/18/17 Cholestyramine/Aspartame 4 gm PO BID #60 packet 12/24/16 [Cholestyramine Light Packet] OLANZapine [Olanzapine] 5 mg PO DAILY PRN 02/18/17 02/18/17 OLANZapine [ZyPREXA] 1 tab PO DAILY 02/18/17 02/18/17 Potassium Chloride 20 meq PO DAILY #14 packet 02/18/17 clonazePAM [Clonazepam] 0.5 mg PO DAILY PRN 02/18/17 02/18/17 - Allergies Allergies/Adverse Reactions: Allergies Allergy/AdvReac Type Severity Reaction Status Date / Time Sulfa (Sulfonamide Allergy Intermediate Nausea Verified 02/18/17 03:07 Antibiotics) felodipine AdvReac Intermediate Dizziness Verified 02/18/17 03:07 fenofibrate nanocrystallized AdvReac Intermediate Cramps Verified 02/18/17 03:07 * [From Tricor] fenofibrate,micronized * AdvReac Intermediate Cramps Verified 02/18/17 03:07 [From Tricor] losartan [Losartan] AdvReac Intermediate Respiratory Verified 02/18/17 03:07 metoprolol AdvReac Intermediate Respiratory Verified 02/18/17 03:07 minoxidil AdvReac Intermediate Emesis Verified 02/18/17 03:07 clonidine AdvReac Mild Cramps Verified 02/18/17 03:07 donepezil [Donepezil] AdvReac Unknown Unknown Verified 02/18/17 03:07 iodine AdvReac Unknown Unknown Verified 02/18/17 03:07 furosemide AdvReac Nausea Verified 02/18/17 03:07 haloperidol AdvReac Hallucinati Verified 02/18/17 03:07 ons hydrochlorothiazide AdvReac Emesis Verified 02/18/17 03:07 - Living Situation Living Arrangement: reports: Assisted living - Social History Does the pt smoke?: No Smoking Status: Never smoker Does the pt drink ETOH?: No Does the pt have substance abuse?: No - Family History Family history: reports: Non contributory - Immunizations Immunizations are current?: Yes - POLST Patient has POLST: Yes PD ED PE NORMAL - Vitals Vital signs reviewed: Yes - General General: Alert and oriented X 3, No acute distress - HEENT HEENT: PERRL, EOMI - Neck Neck: Supple, no meningeal sign, No bony TTP - Cardiac Cardiac: RRR, No murmur - Respiratory Respiratory: No respiratory distress, Clear bilaterally - Abdomen Abdomen: Other (Quite tender in the right upper quadrant) - Back Back: No CVA TTP, No spinal TTP - Derm Derm: Normal color, Warm and dry - Extremities Extremities: No edema, No calf tenderness / cord - Neuro Neuro: Alert and oriented X 3, Normal speech - Psych Psych: Normal mood, Normal affect Results - Vitals Vitals: Vital Signs - 24 hr 03/15/18 03/15/18 03/15/18 18:30 20:00 21:18 Temperature 36.8 C Heart Rate 87 84 88 Respiratory 20 24 16 Rate Blood Pressure 200/87 H 178/66 H O2 Saturation 99 92 03/15/18 21:34 Temperature Heart Rate 88 Respiratory 23 Rate Blood Pressure 183/73 H O2 Saturation 93 Oxygen O2 Source Room air - EKG (time done) 1828 Rate: Rate (enter#) (87) Rhythm: NSR [place]: Normal Intervals: Normal GA QRS: Normal Ischemia: Normal ST segments Computer interpretation: Agree with computer - Labs Labs: Laboratory Tests 03/15/18 03/15/18 03/15/18 18:40 18:40 18:40 WBC 15.5 H RBC 5.15 Hgb 13.7 L Hct 41.4 L MCV 80.4 MCH 26.5 L MCHC 33.0 RDW 14.3 Plt Count 290 MPV 6.3 L Neut # (Auto) 13.0 H Lymph # (Auto) 1.6 [place] # (Auto) 0.7 Eos # (Auto) 0.2 Baso # (Auto) 0.1 Absolute Nucleated RBC 0.00 Nucleated RBC % 0.0 PT INR Sodium 138 Potassium 4.4 Chloride 101 Carbon Dioxide 27 Anion Gap 10.0 BUN 18 Creatinine 1.4 H Estimated GFR (MDRD) 50 L Glucose 158 H Calcium 8.8 Total Bilirubin 0.6 AST 20 ALT 16 Alkaline Phosphatase 91 Total Creatine Kinase 108 CK-MB (CK-2) 5.9 Troponin I < 0.04 Total Protein 7.8 Albumin 4.1 Globulin 3.7 Albumin/Globulin Ratio 1.1 Lipase 40 03/15/18 03/15/18 18:40 20:15 WBC RBC Hgb Hct MCV MCH MCHC RDW Plt Count MPV Neut # (Auto) Lymph # (Auto) [place] # (Auto) Eos # (Auto) Baso # (Auto) Absolute Nucleated RBC Nucleated RBC % PT 11.8 INR 1.0 Sodium Potassium Chloride Carbon Dioxide Anion Gap BUN Creatinine Estimated GFR (MDRD) Glucose Calcium Total Bilirubin AST ALT Alkaline Phosphatase Total Creatine Kinase CK-MB (CK-2) Troponin I < 0.04 Total Protein Albumin Globulin Albumin/Globulin Ratio Lipase - Rads (name of study) 2v L hip Radiology: EMP read contemporaneously (IMPRESSION: 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 Fractured fragments of the retaining ring again noted superior to the lesser trochanter.) PD MEDICAL DECISION MAKING - ED course ED course: 73-year-old gentleman with upper abdominal/chest pain and vomiting. He was quite tender to the upper abdomen on arrival so presumed biliary source. However he does not have a gallbladder ultrasound. He was pain-free after a single round of pain medications here but became more wheezy and he was given a breathing treatment. 2 troponins were done in the department and both undetectable and negative. His pulse oximetry is at rest were fine, we ambulated him he did drop. He does have a history of COPD and the tells me that he is supposed to be on home oxygen but only rarely uses it. He remained pain-free during a prolonged observation period in the emergency department. - Sepsis Event Vital Signs: Vital Signs - 24 hr 03/15/18 03/15/18 03/15/18 18:30 20:00 21:18 Temperature 36.8 C Heart Rate 87 84 88 Respiratory 20 24 16 Rate Blood Pressure 200/87 H 178/66 H O2 Saturation 99 92 03/15/18 21:34 Temperature Heart Rate 88 Respiratory 23 Rate Blood Pressure 183/73 H O2 Saturation 93 Oxygen O2 Source Room air Departure - Departure Disposition: 01 Home, Self Care Clinical Impression: Moderate COPD (chronic obstructive pulmonary disease) Chest pain Qualifiers: Chest pain type: unspecified Qualified Code(s): R07.9 - Chest pain, unspecified Condition: Good Record reviewed to determine appropriate education?: Yes Instructions: COPD Dc, ED Chest Pain NonCardiac Comments: Call your doctor to arrange a follow-up appointment, make the next available appointment. In the interim, return anytime if worse or if new symptoms develop. Your blood pressure was elevated today on check into the emergency department. This does not mean that you have hypertension, it is a common phenomenon to come to the emergency department and have elevated blood pressure. I recommend that you see your primary care physician within the week to have it rechecked when you are feeling better.
[2018-03-15 18:45] LABS: BASOPHILS # (AUTO) 0.1 10^3/uL (0.0-0.1); BASOPHILS % (AUTO) 0.5 %; EOSINOPHILS # (AUTO) 0.2 10^3/uL (0.0-0.7); EOSINOPHILS % (AUTO) 1.1 %; HGB - HEMOGLOBIN 13.7 g/dL (14.0-18.0); LYMPHOCYTES # (AUTO) 1.6 10^3/uL (1.5-3.5); LYMPHOCYTES % (AUTO) 10.2 %; MEAN CORPUSCULAR HEMOGLOBIN 26.5 pg (27.0-31.0); MEAN CORPUSCULAR VOLUME 80.4 fL (80.0-94.0); MEAN PLATELET VOLUME 6.3 fL (7.4-11.4); MONOCYTES # (AUTO) 0.7 10^3/uL (0.0-1.0); MONOCYTES % (AUTO) 4.6 %; NEUTROPHILS % (AUTO) 83.6 %; PLT - PLATELET COUNT 290 10^3/uL (130-450); RED BLOOD COUNT 5.15 10^6/uL (4.70-6.10); RED CELL DISTRIBUTION WIDTH 14.3 % (12.0-15.0); WHITE BLOOD COUNT 15.5 x10^3/uL (4.8-10.8)
[2018-03-15 18:50] LABS: PT - PROTHROMBIN TIME 11.8 secs (9.9-12.6)
[2018-03-15 18:58] LABS: ALBUMIN 4.1 g/dL (3.2-5.5); ALBUMIN/GLOBULIN RATIO 1.1 (1.0-2.2); BILIRUBIN,TOTAL 0.6 mg/dL (0.2-1.0); CALCIUM 8.8 mg/dL (8.5-10.3); CREATININE 1.4 mg/dL (0.6-1.2); TOTAL PROTEIN 7.8 g/dL (6.7-8.2)
[2018-03-15 19:04] LABS: TROPONIN I < 0.04 ng/mL (<0.49)
[2018-03-15 19:05] LABS: CREATINE KINASE MB 5.9 ng/mL (0.6-6.3)
--- NOTE | 2018-03-15 19:25 | XRAY Report ---
Procedure Date: 03/15/2018 Accession Number: [id number] / [id number] Procedure: XR - Chest 1 View X-Ray CPT Code: 53282 FULL RESULT: EXAM: CHEST RADIOGRAPHY EXAM DATE: 03/15/2018 06:54 PM. CLINICAL HISTORY: Chest pain. COMPARISON: CHEST 1 VIEW 02/18/2017. TECHNIQUE: 1 view. FINDINGS: Lungs/Pleura: No focal opacities evident. No pleural effusion. No pneumothorax. Mediastinum: Within exam limitations, the cardiomediastinal contour is normal. Other: None. IMPRESSION: No acute intrathoracic plain film abnormality. RADIA
--- NOTE | 2018-03-15 20:03 | Ultrasound Report ---
Procedure Date: 03/15/2018 Accession Number: [id number] / [id number] Procedure: US - Abdomen Limited CPT Code: FULL RESULT: EXAM: ABDOMEN ULTRASOUND LIMITED, RUQ EXAM DATE: 03/15/2018 07:35 PM. CLINICAL HISTORY: Right upper quadrant pain. COMPARISON: ABD/PEL 07/16/2007 8:43 AM. TECHNIQUE: Real-time scanning was performed with static images obtained. FINDINGS: Liver: Uniform increased echogenicity. No focal mass lesions. 16.4 cm. Main portal vein flow: Hepatopetal. Gallbladder: Cholecystectomy. Biliary System: CBD measures 3.0 mm. No intrahepatic or extrahepatic ductal dilatation. Other: Normal right kidney (small right extrarenal pelvis). No free fluid. Pancreas obscured by bowel gas. IMPRESSION: 1. Fatty liver. 2. Cholecystectomy. No biliary duct dilatation. RADIA
[2018-03-15] MEDS ORDERED: ALBUTEROL NEB 2.5 MG/3 ML INH STA (20:50)
[2018-03-15 21:35] VITALS: BP 183/73
== END 2018-03-15 22:29 | disposition home or self-care (01) ==
LOC: EDUNIT# → ED 18:18
DX: J44.9 Chronic obstructive pulmonary disease, unspecified (principal); R07.9 Chest pain, unspecified; I10 Essential (primary) hypertension; E11.9 Type 2 diabetes mellitus without complications; Z79.82 Long term (current) use of aspirin; Z79.4 Long term (current) use of insulin; Z91.19 Patient's noncompliance with other medical treatment and regimen
CPT/HCPCS: 36415; 71045; 76705; 80053; 82550; 82553; 83690; 84484; 85025; 85610; 93005; 94640; 96374; 96375; 99283; 99284

== ENCOUNTER 2018-08-22 16:42 | Outpatient (CLI) | payer MEDICARE, MEDICAID ==
--- NOTE | 2018-08-22 21:16 | CONSULTATION NOTE ---
Palliative Care Consultation - Referral Referring Provider: Dr Adrian Fletcher Time of Visit: 08/22/2018. 09:55 - 11:20 Referral setting: Assisted living (Seen in home setting due to taxing and considerable effort required to leave the home due to vascular dementia and limited mobility with poor balance. Patient is on continuous oxygen secondary to advanced COPD.) Referral Reason: Vascular dementia with behavioral disturbance - Information Sources Records reviewed: RN notes reviewed, Previous records reviewed History/Review of Systems obtained from: Patient, Family Exam limitations: Clinical condition (Short-term memory deficits; vascular dementia.) - History of Present Illness Brief History of Present Illness: Thank you, Dr. Fletcher, for asking the palliative care consult service to be involved in the care of your patient. I am asked to provide support regarding progressive functional decline and an increase in behavioral disturbances, agitation and aggression, and advance care planning. 73-year-old male h/o CVA 2008 resides at [facility] dementia unit and has vascular dementia with behaviors and oxygen dependent COPD. Medical history: Vascular dementia with behaviors; COPD on 1.5-2L oxygen; HTN; HLD; diabetes type II; GERD; BPH; h/o CVA 2008 with R side weakness; h/o R car otid stent; Crohn's; h/o lainey fundiplocation procedure (reinforcing the lower esophageal sphincter around 2009, 2010); h/o spinal fusion surgeries; large abdominal hernia. He has now been living at [facility] for 3-4 months. His spouse is present at today's initial visit. She has noted general decline, increasing confusion, and worsening shortness of breath over the past several months. It's unclear what his weight history is. reports 230-235lbs 6 months ago. Facility records contradict this and indicate his range earlier in 2018 was 186- 198 lbs, and current weight is 217.6 lbs. He was 208 lbs Dec , nearly a 10 lb gain in 6 weeks. He does complain of SOA, sleeps on his side with 2 pillows. Lungs sounds diminished with no crackles, no cough. He admits anxiety exacerbates his shortness of breath. Family reports increasing aggression and anxiety. He's on routine and PRN clonazepam, and Dr Fletcher just started him on quetiapine 50mg QAM yesterday morning. He is feeling fatigued, sleepy, with confusion this morning, which is more evident as the visit progresses. I suspect it could be side effect of the new quetiapine order, and will switch dosing to the evening. Patient is articulate, and appropriately responsive, with significant short-term memory deficits and is an unreliable historian. The history is supplied by his spouse, Skye. She notes his LE edema has increased, worse on RLE. He also has chronic R hand edema off and on since CVA in 2008 with residual R side weakness. Provided education on elevation throughout the day and using compression. He doesn't like compression stockings; I will provide sample of tubigrip (size F) for him to trial. Lung sounds are diminished (COPD and body habitus), no detectable crackles or wheezing. Denies cough. Patient complains that he can no longer read due to deteriorating vision. reports that he doesn't wear glasses, nor dentures or hearing aids. Patient has no specific pain issues; he has stiffness and low back pain, uses Tylenol for relief. A few hours after this visit, around lunchtime, patient had several episodes of vomiting; staff gave him ondansetron. I advised rest and keeping him hydrated. They sent him to ED around 18:30 for c/o chest pain, vomiting, and pallor. He was discharged back to [facility] with order to reduce quetiapine to 25mg QPM, use Ondansetron Q6h prn for N/V which may be a viral infection, frequent fluids, and follow up with PCP. Medical/Surgical History - Past Medical History Cardiovascular: reports: Hypertension, High cholesterol Respiratory: reports: COPD, Emphysema Neuro: reports: Dementia (Vascular), CVA (2008) Endocrine/Autoimmune: reports: Type 2 diabetes GI: reports: GERD, Crohn's disease (personal history) : reports: Benign prostate hypertrophy HEENT: reports: Chronic vision loss, Other (dentures, but doesn't wear them) Psych: reports: Depression, Anxiety Derm: reports: None MRSA Hx?: No - Past Surgical History General: reports: Gastric surgery (lainey fundiplocation procedure (reinforcing the lower esophageal sphincter) around 0434-2119) Ortho: reports: Spine surgery (several fusions, cervical and spinal) Cardiovascular: reports: Other (R carotid stent) - Substance History Tobacco Details: Cigarettes (Former smoker. Started in 5th grade, quit 2006- 2007.) Social History - Living Situation Living arrangement: Assisted living ([facility] memory unit) Living Situation: With caregiver(s) Support System: He and his , Skye, are both [place]. The patient was born in [place] and is of [place] background. They moved to [facility] [place], bought an old, fixer-upper house on 11 acres in [place]. Skye still lives on that same land in [place] though they've sold part of it off. They raised two sons who were 2.5 and 5 years old when they moved here. The elder son lives in [place], the younger in [place]. 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 Family History - Family History Family History Comment/Other: Non-contributory. Medications/Allergies - Medications Home Medications: Ambulatory Orders Medication Instructions Recorded Confirmed Albuterol Sulfate [Proair Hfa 8.5 gm INH Q4H PRN 05/31/16 08/22/18 Inhaler] Aspirin 81 mg PO DAILY 05/31/16 08/22/18 Fluticasone/Vilanterol [Breo 1 puffs INH DAILY 05/31/16 08/22/18 Ellipta 200-25 Mcg INH] Furosemide [Lasix] 20 mg PO DAILY 05/31/16 08/22/18 Insulin Glargine [Lantus Solostar] 80 unit SUBQ DAILY 05/31/16 08/22/18 Ipratropium/Albuterol Sulfate 3 ml INH Q4H PRN 05/31/16 08/22/18 [Iprat-Albut 0.5-3(2.5) mg/3 ml] Tamsulosin [Flomax] 0.4 mg PO DAILY 05/31/16 08/22/18 Tiotropium [place] [Spiriva] 18 mcg PO DAILY 05/31/16 08/22/18 amLODIPine [Norvasc] 5 mg PO DAILY 05/31/16 08/22/18 Cholestyramine/Aspartame 4 gm PO BID #60 packet 12/24/16 08/22/18 [Cholestyramine Light Packet] Bisacodyl Supp [Dulcolax Supp] 10 mg [place] DAILY 08/22/18 08/22/18 Guaifenesin/Dextromethorphan 10 ml PO .QID PRN 08/22/18 08/22/18 [Tussin Dm Cough Syrup] Ketoconazole 2% Cr 1 ea TP DAILY MDD Apply to 08/22/18 affected areas Loperamide [Imodium] 2 mg PO .AFTER EA LIQ STOOL PRN 08/22/18 08/22/18 Losartan Potassium 25 mg PO DAILY 08/22/18 08/22/18 Magnesium Hydroxide [Milk of 30 ml PO DAILY PRN 08/22/18 08/22/18 Magnesia] Melatonin 5 mg PO .QPM 08/22/18 08/22/18 Nystatin 1 ea TP BID 08/22/18 08/22/18 Omeprazole 40 mg PO DAILY 08/22/18 08/22/18 Ondansetron Odt [Zofran] 4 mg TL Q6H PRN #10 tablet 08/22/18 Ondansetron [Zuplenz] 4 mg PO TID PRN 08/22/18 08/22/18 Quetiapine Fumarate 25 mg PO .QPM 08/22/18 08/23/18 clonazePAM [Clonazepam] 0.5 mg PO DAILY PRN 08/22/18 08/22/18 clonazePAM [Clonazepam] 1 mg PO BID 08/22/18 08/22/18 - Allergies Allergies/Adverse Reactions: Allergies Allergy/AdvReac Type Severity Reaction Status Date / Time Sulfa (Sulfonamide Allergy Intermediate Nausea Verified 02/18/17 03:07 Antibiotics) felodipine AdvReac Intermediate Dizziness Verified 02/18/17 03:07 fenofibrate nanocrystallized AdvReac Intermediate Cramps Verified 02/18/17 03:07 * [From Tricor] fenofibrate,micronized * AdvReac Intermediate Cramps Verified 02/18/17 03:07 [From Tricor] losartan [Losartan] AdvReac Intermediate Respiratory Verified 02/18/17 03:07 metoprolol AdvReac Intermediate Respiratory Verified 02/18/17 03:07 minoxidil AdvReac Intermediate Emesis Verified 02/18/17 03:07 clonidine AdvReac Mild Cramps Verified 02/18/17 03:07 donepezil [Donepezil] AdvReac Unknown Unknown Verified 02/18/17 03:07 iodine AdvReac Unknown Unknown Verified 02/18/17 03:07 furosemide AdvReac Nausea Verified 02/18/17 03:07 haloperidol AdvReac Hallucinati Verified 02/18/17 03:07 ons hydrochlorothiazide AdvReac Emesis Verified 02/18/17 03:07 Review of Systems - Constitutional Constitutional: reports: Fatigue, Weakness, Weight gain (222.8 08/21/18. 218 08/14. 217.8 08/07/18. Previous range was 188 - 198 lbs from October to February 2018.), Other (Chronic trouble sleeping at night x years). denies: Poor appetite - Eyes Eyes: reports: Vision loss. denies: Corrective lenses (doesn't wear them) - Ears, Nose & Throat Ears, Nose & Throat: reports: Hearing loss, Other (has dentures he doesn't wear). denies: Hearing aids (doesn't wear them) - Cardiovascular Cardiovascular: reports: Edema, Exertional dyspnea, Decr. exercise tolerance - Respiratory Respiratory: reports: SOB at rest, SOB with exertion. denies: Cough, Wheezing - Gastrointestinal Gastrointestinal: reports: Reflux/heartburn, Good appetite. denies: Constipation (bowel movements most days, per bowel activity log) - Musculoskeletal Musculoskeletal: reports: Stiffness, Joint pain (in back), Assistive devices (walker), Transfer issues (requires assistance) - Integumentary Integumentary: reports: Other (eczema and seborrheic dermatitis, uses ketoconazole and Nystatin cream daily) - Psychiatric Psychiatric: reports: Anxiety, Aggitation, Behavior disturbances (aggression) - Endocrine Endocrine: reports: Diabetes type 2 (Lantus 80 unites daily) - Other Findings Other Findings: Limited ROS. Physical Exam - Vital Signs Temperature: 96.6 F Pulse Rate: 72 O2 Saturation: 95 (1.5L O2) Blood Pressure: 156/78 (wrist cuff) - Physical Exam General Appearance: positive: No acute distress, Other (increasing fatigue and confusion during the course of this visit) Eyes Bilateral: positive: No lid inflammation, Conjunctivae nml, No scleral icterus ENT: positive: No signs of dehydration Neck: positive: Trachea midline Cardiovascular: positive: Regular rate & rhythm, No murmur, No gallop Respiratory: positive: Chest non-tender, No respiratory distress, Diminished throughout (body habitus; COPD). negative: Wheezes, Rales Abdomen: positive: Non-tender, Soft, Other (large hernia to L superior aspect of umbilicus.) Skin: positive: No symptoms Extremities: positive: Pedal edema (2+ left; 3+ right. Edema of R hand, fluid u nder the dermis) Neurologic/Psychiatric: positive: Mood/affect nml, Disoriented to time, Weakness Palliative Care - POLST Patient has POLST: Yes POLST Status: DNR, Comfort Measures Tiredness/Fatigue: Moderate (4-6) Nausea: None Anxiety: Mild (1-3) Dyspnea: Moderate (4-6) (with exertion) Anorexia: None Sleep: Sleeps poorly (chronic poor sleep x years) Constipation: No Feelings of wellbeing/Perceived Quality of Life: Good Performance Status: ambulatory with walker chronic loose stools; on cholestyramine SOA with exertion articulate confused, poor historian requires extensive help with ADLs, transfers, toileting - Palliative Care Discussion: In general, patient says he feels good these days, but rates is quality of life as so-so, noting he's getting old, slow and doesn't breath well. Since the CVA in 2008 patient has lived in several assisted living facilities and SNFs following his rehabilitation. He was at [facility] years ago, at [facility] for 5 years, had surgeries and procedures, was in [facility] for rehabilitation, and has tried living back at home a few times, but his realizes she can't provide appropriate care. With all his health issues and residential changes, the last few years have been stressful for them. Patient lacks full awareness of the extent of his condition, but Skye doesn't and she observes how he has declined over the past year and how his agitation and anxiety have increased. We discussed their goals of care and reviewed the current POLST signed July 2013. The goals have not changed: still DNR and comfort care. Skye prefers not to not transfer him to hospital; his cognition is such that he can't made that choice. Ironically a few hours after this discussion and agreement on comfort care, the facility told her they wanted transfer him to ED with his chest pain and nausea, and she did not object. Impression and Recommendations - Palliative Care Impression: 73-year-old male h/o CVA 2008 resides at [facility] dementia unit and has vascular dementia with behaviors. He has advanced COPD and is oxygen dependent. He is declining functionally and cognitively, with increased agitation and anxi ety, and he was started on quetiapine the day before this visit. The patient could benefit from ongoing Palliative Care support and monitoring for appropriate transition to Hospice when medical criteria are met. Recommendations/Counseling Done: Vascular dementia with behaviors: Decreased cognition and increasing agitation and aggression. Quetiapine 50mg in the morning was started. Switch to evening dosage and decrease the dose to 25mg QPM. Monitor effects on behavior and adjust as indicated Nausea/vomiting, etiology unknown: A few hours after this visit, patient experienced N/V, and eventually chest pain. Facility sent him to ED. He was released back to [facility] with instructions to decrease quetiapine to 25mg nightly and ondansetaon as needed Q6hr, and frequent fluids. Anxiety: On scheduled clonazepam 1mg BID and clonazepam 0.5mg daily PRN. COPD, oxygen dependent: Chronic SOA, oxygen dependent, 1.5 to 2 liters. Continue Breo, Spiriva, Duonebs nebulizer as needed (used once this month so far), and Proair/albuterol inhaler as needed. Edema, non-pitting: Educated on elevation and compression. Patient doesn't like compression stockings; will provide him a sample of tubigrip, size F, to trial. Continue Lasix 20 mg daily. HTN: BP 156/78. On amlodipine and losartan DM II: Lantus/glargine 80 units in the morning. No BGs available. h/o Crohn's: He has bowel movements almost daily. Drinks cholestyramine powder in liquid BID. Also has loperamide prn. Low back pain: Acetaminophen 650mg Q6h PRN. Advance care planning: Reviewed current POLST signed in July 2013. No changes to goals of care, which are DNR and comfort care. Family and patient want to avoid hospital transfer. This being said, facility wanted him transferred to ED a few hours after this palliative care visit and spouse did not object. Facility did not contact Palliative Care. Time Spent: 85 minutes were spent with more than 50% of the time spent on counseling, education, anticipatory guidance, and coordination of care.
== END 2018-08-22 16:43 | disposition home or self-care (01) ==
LOC: PC 16:42
PROVIDERS: ATTEND Nurse Practitioner
DX: Z51.5 Encounter for palliative care (principal); F01.51 Vascular dementia, unspecified severity, with behavioral disturbance; F41.9 Anxiety disorder, unspecified; J44.9 Chronic obstructive pulmonary disease, unspecified; R60.9 Edema, unspecified; I10 Essential (primary) hypertension; E11.9 Type 2 diabetes mellitus without complications; K50.90 Crohn's disease, unspecified, without complications; M54.5 Low back pain; R06.02 Shortness of breath; R53.83 Other fatigue; R41.0 Disorientation, unspecified; Z87.891 Personal history of nicotine dependence; Z99.81 Dependence on supplemental oxygen; Z79.4 Long term (current) use of insulin; Z66 Do not resuscitate

== ENCOUNTER 2018-08-22 18:48 | Outpatient (CLI) | payer MEDICARE, MEDICAID | END 2018-08-22 18:49 | disposition critical access hospital (66) | LOC: EMS 18:48 | PROVIDERS: ATTEND Surgery | DX: R07.89 Other chest pain (principal) | CPT/HCPCS: A0425; A0429 ==

== ENCOUNTER 2018-08-22 19:05 | Emergency (ER) | payer MEDICARE, MEDICAID ==
[2018-08-22 19:45] LABS: BASOPHILS # (AUTO) 0.1 10^3/uL (0.0-0.1); BASOPHILS % (AUTO) 0.6 %; EOSINOPHILS % (AUTO) 0.2 %; HGB - HEMOGLOBIN 13.3 g/dL (14.0-18.0); LYMPHOCYTES # (AUTO) 1.2 10^3/uL (1.5-3.5); LYMPHOCYTES % (AUTO) 7.5 %; MEAN CORPUSCULAR HEMOGLOBIN 26.4 pg (27.0-31.0); MEAN CORPUSCULAR HGB CONC 32.3 g/dL (32.0-36.0); MEAN CORPUSCULAR VOLUME 81.9 fL (80.0-94.0); MEAN PLATELET VOLUME 6.7 fL (7.4-11.4); MONOCYTES # (AUTO) 0.8 10^3/uL (0.0-1.0); NEUTROPHILS % (AUTO) 86.7 %; PLT - PLATELET COUNT 310 10^3/uL (130-450); RED BLOOD COUNT 5.02 10^6/uL (4.70-6.10); WHITE BLOOD COUNT 16.2 x10^3/uL (4.8-10.8)
[2018-08-22 19:55] LABS: ALBUMIN 3.8 g/dL (3.2-5.5); ALBUMIN/GLOBULIN RATIO 1.2 (1.0-2.2); BILIRUBIN,TOTAL 0.5 mg/dL (0.2-1.0); CALCIUM 8.4 mg/dL (8.5-10.3); CREATININE 1.6 mg/dL (0.6-1.2); TOTAL PROTEIN 7.1 g/dL (6.7-8.2)
--- NOTE | 2018-08-22 20:20 | XRAY Report ---
Reason: chest pain Procedure Date: 08/22/2018 Accession Number: [id number] / [id number] Procedure: XR - Chest 1 View X-Ray CPT Code: 57049 FULL RESULT: EXAM: CHEST RADIOGRAPHY EXAM DATE: 08/22/2018 08:01 PM. CLINICAL HISTORY: Chest pain. COMPARISON: CHEST 1 VIEW 03/15/2018 6:40 PM. TECHNIQUE: 1 view. FINDINGS: Lungs/Pleura: Lung volumes are low. No consolidation or edema. Negative for pneumothorax. Mediastinum: Within exam limitations, the cardiomediastinal contour is normal. Other: None. IMPRESSION: Negative for an acute cardiopulmonary abnormality. RADIA
--- NOTE | 2018-08-22 20:20 | ED Physician Documentation ---
PD HPI CHEST PAIN - Stated complaint Stated Complaint: CP - Chief complaint Chief Complaint: Cardiac - History obtained from History obtained from: Patient - History of Present Illness Timing - onset: Today (he does have some memory problems, but says he felt okay upon awakening this morning, and developed nausea with some vomiting intermittently late morning. Had some lower anterior chest pain past few hours. Feeling nausea.) Timing - onset during: Rest Timing - duration: Days (just onset late morning today) Timing - details: Abrupt onset, Still present, Waxing and waning Quality: Aching Location: Substernal, Epigastric Radiation: No: Neck, Back Worsened by: No: Exertion, Inspiration Associated symptoms: Nausea, Vomiting, General Weakness. No: Shortness of air, Feeling faint / dizzy Recently seen: Not recently seen Review of Systems Unable to obtain: Dementia Constitutional: denies: Fever Nose: denies: Rhinorrhea / runny nose, Congestion Throat: denies: Sore throat Cardiac: reports: Chest pain / pressure. denies: Palpitations Respiratory: reports: Dyspnea. denies: Cough GI: reports: Abdominal Pain, Nausea, Vomiting. denies: Diarrhea, Hematemesis, Bloody / black stool : denies: Dysuria, Frequency PD PAST MEDICAL HISTORY - Past Medical History Cardiovascular: Hypertension, High cholesterol Respiratory: COPD, Emphysema Endocrine/Autoimmune: Type 2 diabetes GI: GERD : Benign prostate hypertrophy HEENT: None Psych: Depression Musculoskeletal: None Derm: None - Past Surgical History Past Surgical History: Yes Ortho: Spine surgery - Present Medications Home Medications: Ambulatory Orders Medication Instructions Recorded Confirmed Albuterol Sulfate [Proair Hfa 8.5 gm INH Q4H PRN 05/31/16 08/22/18 Inhaler] Aspirin 81 mg PO DAILY 05/31/16 08/22/18 Fluticasone/Vilanterol [Breo 1 puffs INH DAILY 05/31/16 08/22/18 Ellipta 200-25 Mcg INH] Furosemide [Lasix] 20 mg PO DAILY 05/31/16 08/22/18 Insulin Glargine [Lantus Solostar] 80 unit SUBQ DAILY 05/31/16 08/22/18 Ipratropium/Albuterol Sulfate 3 ml INH Q4H PRN 05/31/16 08/22/18 [Iprat-Albut 0.5-3(2.5) mg/3 ml] Tamsulosin [Flomax] 0.4 mg PO DAILY 05/31/16 08/22/18 Tiotropium [place] [Spiriva] 18 mcg PO DAILY 05/31/16 08/22/18 amLODIPine [Norvasc] 5 mg PO DAILY 05/31/16 08/22/18 Cholestyramine/Aspartame 4 gm PO BID #60 packet 12/24/16 08/22/18 [Cholestyramine Light Packet] Bisacodyl Supp [Dulcolax Supp] 10 mg [place] DAILY 08/22/18 08/22/18 Guaifenesin/Dextromethorphan 10 ml PO .QID PRN 08/22/18 08/22/18 [Tussin Dm Cough Syrup] Ketoconazole 2% Cr 1 ea TP DAILY MDD Apply to 08/22/18 affected areas Loperamide [Imodium] 2 mg PO .AFTER EA LIQ STOOL PRN 08/22/18 08/22/18 Losartan Potassium 25 mg PO DAILY 08/22/18 08/22/18 Magnesium Hydroxide [Milk of 30 ml PO DAILY PRN 08/22/18 08/22/18 Magnesia] Melatonin 5 mg PO .QPM 08/22/18 08/22/18 Nystatin 1 ea TP BID 08/22/18 08/22/18 Omeprazole 40 mg PO DAILY 08/22/18 08/22/18 Ondansetron Odt [Zofran] 4 mg TL Q6H PRN #10 tablet 08/22/18 Ondansetron [Zuplenz] 4 mg PO TID PRN 08/22/18 08/22/18 Quetiapine Fumarate 25 mg PO .QPM 08/22/18 08/23/18 clonazePAM [Clonazepam] 0.5 mg PO DAILY PRN 08/22/18 08/22/18 clonazePAM [Clonazepam] 1 mg PO BID 08/22/18 08/22/18 - Allergies Allergies/Adverse Reactions: Allergies Allergy/AdvReac Type Severity Reaction Status Date / Time Sulfa (Sulfonamide Allergy Intermediate Nausea Verified 02/18/17 03:07 Antibiotics) felodipine AdvReac Intermediate Dizziness Verified 02/18/17 03:07 fenofibrate nanocrystallized AdvReac Intermediate Cramps Verified 02/18/17 03:07 * [From Tricor] fenofibrate,micronized * AdvReac Intermediate Cramps Verified 02/18/17 03:07 [From Tricor] losartan [Losartan] AdvReac Intermediate Respiratory Verified 02/18/17 03:07 metoprolol AdvReac Intermediate Respiratory Verified 02/18/17 03:07 minoxidil AdvReac Intermediate Emesis Verified 02/18/17 03:07 clonidine AdvReac Mild Cramps Verified 02/18/17 03:07 donepezil [Donepezil] AdvReac Unknown Unknown Verified 02/18/17 03:07 iodine AdvReac Unknown Unknown Verified 02/18/17 03:07 furosemide AdvReac Nausea Verified 02/18/17 03:07 haloperidol AdvReac Hallucinati Verified 02/18/17 03:07 ons hydrochlorothiazide AdvReac Emesis Verified 02/18/17 03:07 - Social History Does the pt smoke?: No Smoking Status: Never smoker Does the pt drink ETOH?: No Does the pt have substance abuse?: No - Immunizations Immunizations are current?: Yes - POLST Patient has POLST: Yes PD ED PE NORMAL - Vitals Vital signs reviewed: Yes - General General: Alert and oriented X 3, No acute distress, Well developed/nourished - HEENT HEENT: Moist mucous membranes, Pharynx benign - Neck Neck: Supple, no meningeal sign, No adenopathy - Cardiac Cardiac: RRR, No murmur - Respiratory Respiratory: Clear bilaterally - Abdomen Abdomen: Normal bowel sounds, Soft, Non tender, Non distended, No organomegaly - Back Back: No CVA TTP - Derm Derm: Normal color, Warm and dry - Extremities Extremities: No tenderness to palpate, Normal ROM s pain, No edema, No calf tenderness / cord - Neuro Neuro: Alert and oriented X 3, No motor deficit, Normal speech Results - Vitals Vitals: Oxygen O2 Source Nasal cannula - EKG (time done) 19:14 Rate: Rate (enter#) (86) Rhythm: NSR [place]: Normal Intervals: Normal [place] QRS: Normal Ischemia: Normal ST segments. No: ST elevation c/w ischemia, ST depression - Labs Labs: Laboratory Tests 08/22/18 08/22/18 08/22/18 19:07 19:07 19:07 WBC 16.2 H RBC 5.02 Hgb 13.3 L Hct 41.1 L MCV 81.9 MCH 26.4 L MCHC 32.3 RDW 15.0 Plt Count 310 MPV 6.7 L Neut # (Auto) 14.0 H Lymph # (Auto) 1.2 L [place] # (Auto) 0.8 Eos # (Auto) 0.0 Baso # (Auto) 0.1 Absolute Nucleated RBC 0.00 Nucleated RBC % 0.0 Sodium 138 Potassium 3.9 Chloride 102 Carbon Dioxide 30 Anion Gap 6.0 BUN 18 Creatinine 1.6 H Estimated GFR (MDRD) 43 L Glucose 100 Calcium 8.4 L Total Bilirubin 0.5 AST 16 ALT 12 Alkaline Phosphatase 84 Troponin I < 0.04 Total Protein 7.1 Albumin 3.8 Globulin 3.3 Albumin/Globulin Ratio 1.2 Lipase 32 - Rads (name of study) chest xray Radiology: Prelim report reviewed, EMP read contemporaneously (normal exam), See rad report PD MEDICAL DECISION MAKING - ED course Complexity details: re-evaluated patient (feeling better here in ER anyway and did seem more improved timed with the GI cocktail. ), considered differential (seems more gastric and likely c/w viral GE. RUQ is not tender. Obtain labs and ECG/CXR.), d/w patient Departure - Departure Disposition: 01 Home, Self Care Clinical Impression: Upper abdominal pain Nausea & vomiting Qualifiers: Vomiting type: unspecified Vomiting Intractability: non-intractable Qualified Code(s): R11.2 - Nausea with vomiting, unspecified Condition: Stable Record reviewed to determine appropriate education?: Yes Instructions: ED Nausea Vomiting Follow-Up: Adrian Fletcher MD [Primary Care Provider] - Prescriptions: Ondansetron Odt [Zofran] 4 mg TL Q6H PRN #10 tablet PRN Reason: Nausea / Vomiting Comments: Decrease the Seroquel dose from 50 mg to 25 mg nightly. Ondansetron if needed for nausea every 6 hours. Other medicines the same. Encourage frequent fluids. Recheck if not improved over the next couple of days. I think the vomiting may be more of a viral illness and should last for a day or 2 and then get better. The sedation and sleepiness this morning could have been a side effect from the new Seroquel and would suggest decreasing the dose as above. Discharge Date/Time: 08/22/18 22:30
[2018-08-22] MEDS ORDERED: ONDANSETRON 4 MG/2 ML VIAL IVP STA (20:45)
[2018-08-22] MEDS ORDERED: SODIUM CHLORIDE 0.9% 500 ML IV ONE (20:45)
[2018-08-22] MEDS ORDERED: MAG HYDROX/AL HYDROX/SIMETH 30 ML UDC PO STA (20:45)
[2018-08-22] MEDS ORDERED: ONDANSETRON ODT 4 MG Prepack 2 TL PRN (21:47)
[2018-08-22 23:05] VITALS: BP 178/82
== END 2018-08-22 22:30 | disposition home or self-care (01) ==
LOC: EDUNIT# → ED 19:05
DX: R10.10 Upper abdominal pain, unspecified (principal); R11.2 Nausea with vomiting, unspecified; F03.90 Unspecified dementia, unspecified severity, without behavioral disturbance, psychotic disturbance, mood disturbance, and anxiety; I10 Essential (primary) hypertension; E78.00 Pure hypercholesterolemia, unspecified; E11.9 Type 2 diabetes mellitus without complications; Z79.4 Long term (current) use of insulin; Z79.82 Long term (current) use of aspirin
CPT/HCPCS: 36415; 71045; 80053; 83690; 84484; 85025; 93005; 99283; A9270

== ENCOUNTER 2018-08-24 12:00 | Outpatient (CLI) | payer MEDICARE, MEDICAID ==
--- NOTE | 2018-08-24 15:58 | CONSULTATION NOTE ---
Palliative Care Follow Up - Referral Referring Provider: Dr Fletcher Time of Visit: 08/24/2018. 12:00 - 12:30 Referral setting: Assisted living (Seen in home setting due to taxing and considerable effort required to leave the home due to vascular dementia and limited mobility with poor balance. Patient is on oxygen secondary to advanced COPD.) Referral Reason: Acute fatigue - Information Sources Records reviewed: Previous records reviewed History/Review of Systems obtained from: Patient, Family, Caregiver, Nursing Exam limitations: Clinical condition (Short-term memory deficits; vascular dementia) - History of Present Illness Update Brief HPI Update: 73-year-old male h/o CVA 2008 resides at [facility] and has vascular dementia with behaviors and oxygen dependent COPD. He's been living at [facility] for 3-4 months. Medical history: Vascular dementia with behaviors; COPD on 1.5-2L oxygen; HTN; HLD; diabetes type II; GERD; BPH; h/o CVA 2008 with R side weakness; h/o R carotid stent; Crohn's; h/o lainey fundiplocation procedure (reinforcing the lower esophageal sphincter around 2009, 2010); h/o spinal fusion surgeries; large abdominal hernia. Shortly after the first palliative care visit on 08/22/18 he became nauseated and vomited around lunchtime. It reoccured later in the afternoon, and he was feeling sick with chest pain, heartburn, tiredness. The staff sent him to ED around 18:30 and the acquiesced to their advice. He was discharged back to [facility] with order to reduce quetiapine to 25mg QPM, use Ondansetron Q6h prn for N/V that could be a viral infection, frequent fluids, and follow up with PCP. He went to PCP visit yesterday, who confirmed the decrease to 25mg quetiapine QAM. PCP doesn't think quetiapine caused his illness, per spouse. Today the patient is still extremely lethargic and somnolent. Staff reports it was difficult to keep him awake and get him ready. I find him asleep in his clothing on his bed. He is easily roused, but remains groggy. He remembers feeling very sick the day he was sent to the ED, but reports he isn't feeling sick today, just tired. He cuts short the visit because he needs to go to the bathroom. I went to find aids to help him transfer but he got out of bed by himself. He became enraged and explosive as the aids were trying to help him with his walker. Staff reports this is his pattern, impulsive and explosively agitated when he becomes annoyed or irritated. The somnolence is new, since starting quetiapine. The dose was cut to 25mg last night, but he has been somnolent all day up to this point. The visit is at noon. Social History - Living Situation Living arrangement: Assisted living ([facility]) Living Situation: With caregiver(s) Support System: He and his , Skye, are both [employer]. The patient was born in [place] and is of [place] background. They moved to [facility] [place], bought an old, fixer-upper house on 11 acres in [place]. Skye still lives on that same land in [place] though they've sold part of it off. They raised two sons who were 2.5 and 5 years old when they moved here. The elder son lives in [place], the younger in [place]. 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 Medications/Allergies - Medications Home Medications: Ambulatory Orders Medication Instructions Recorded Confirmed Albuterol Sulfate [Proair Hfa 8.5 gm INH Q4H PRN 05/31/16 08/22/18 Inhaler] Aspirin 81 mg PO DAILY 05/31/16 08/22/18 Fluticasone/Vilanterol [Breo 1 puffs INH DAILY 05/31/16 08/22/18 Ellipta 200-25 Mcg INH] Furosemide [Lasix] 20 mg PO DAILY 05/31/16 08/22/18 Insulin Glargine [Lantus Solostar] 80 unit SUBQ DAILY 05/31/16 08/22/18 Ipratropium/Albuterol Sulfate 3 ml INH Q4H PRN 05/31/16 08/22/18 [Iprat-Albut 0.5-3(2.5) mg/3 ml] Tamsulosin [Flomax] 0.4 mg PO DAILY 05/31/16 08/22/18 Tiotropium [place] [Spiriva] 18 mcg PO DAILY 05/31/16 08/22/18 amLODIPine [Norvasc] 5 mg PO DAILY 05/31/16 08/22/18 Cholestyramine/Aspartame 4 gm PO BID #60 packet 12/24/16 08/22/18 [Cholestyramine Light Packet] Bisacodyl Supp [Dulcolax Supp] 10 mg AR DAILY 08/22/18 08/22/18 Guaifenesin/Dextromethorphan 10 ml PO .QID PRN 08/22/18 08/22/18 [Tussin Dm Cough Syrup] Ketoconazole 2% Cr 1 ea TP DAILY MDD Apply to 08/22/18 affected areas Loperamide [Imodium] 2 mg PO .AFTER EA LIQ STOOL PRN 08/22/18 08/22/18 Losartan Potassium 25 mg PO DAILY 08/22/18 08/22/18 Magnesium Hydroxide [Milk of 30 ml PO DAILY PRN 08/22/18 08/22/18 Magnesia] Melatonin 5 mg PO .QPM 08/22/18 08/22/18 Nystatin 1 ea TP BID 08/22/18 08/22/18 Omeprazole 40 mg PO DAILY 08/22/18 08/22/18 Ondansetron Odt [Zofran] 4 mg TL Q6H PRN #10 tablet 08/22/18 Ondansetron [Zuplenz] 4 mg PO TID PRN 08/22/18 08/22/18 Quetiapine Fumarate 12.5 mg PO .QPM 08/22/18 08/23/18 clonazePAM [Clonazepam] 0.5 mg PO DAILY PRN 08/22/18 08/22/18 clonazePAM [Clonazepam] 1 mg PO BID 08/22/18 08/22/18 - Allergies Allergies/Adverse Reactions: Allergies Allergy/AdvReac Type Severity Reaction Status Date / Time Sulfa (Sulfonamide Allergy Intermediate Nausea Verified 02/18/17 03:07 Antibiotics) felodipine AdvReac Intermediate Dizziness Verified 02/18/17 03:07 fenofibrate nanocrystallized AdvReac Intermediate Cramps Verified 02/18/17 03:07 * [From Tricor] fenofibrate,micronized * AdvReac Intermediate Cramps Verified 02/18/17 03:07 [From Tricor] losartan [Losartan] AdvReac Intermediate Respiratory Verified 02/18/17 03:07 metoprolol AdvReac Intermediate Respiratory Verified 02/18/17 03:07 minoxidil AdvReac Intermediate Emesis Verified 02/18/17 03:07 clonidine AdvReac Mild Cramps Verified 02/18/17 03:07 donepezil [Donepezil] AdvReac Unknown Unknown Verified 02/18/17 03:07 iodine AdvReac Unknown Unknown Verified 02/18/17 03:07 furosemide AdvReac Nausea Verified 02/18/17 03:07 haloperidol AdvReac Hallucinati Verified 02/18/17 03:07 ons hydrochlorothiazide AdvReac Emesis Verified 02/18/17 03:07 Review of Systems - Constitutional Constitutional: reports: Fatigue, Weight gain (222.8 08/21/18. 218 08/14/18. 217.8 08/07/18. Previous range was 188 - 198 lbs from October to February 2018.) - Eyes Eyes: reports: Vision loss. denies: Corrective lenses (doesn't wear them) - Ears, Nose & Throat Ears, Nose & Throat: reports: Hearing loss. denies: Hearing aids (doesn't wear them), Dentures (doesn't wear them) - Gastrointestinal Gastrointestinal: denies: Nausea - Genitourinary Genitourinary: reports: Frequency - Musculoskeletal Musculoskeletal: reports: Stiffness, Joint pain (in back), Assistive devices (walker), Transfer issues (requires assistance) - Integumentary Integumentary: reports: Other (eczema and seborrheic dermatitis, uses ketoconazole and Nystatin cream daily) - Neurological Neurological: reports: Memory problems, Pre-existing deficit, Abnormal gait - Psychiatric Psychiatric: reports: Anxiety, Aggitation, Behavior disturbances - Endocrine Endocrine: reports: Diabetes type 2 - Other Findings Other Findings: Limited ROS Physical Exam - Vital Signs Temperature: 97.2 F Pulse Rate: 70 O2 Saturation: 97 Blood Pressure: 124/78 - Physical Exam General Appearance: positive: Moderate distress, Lethargic Eyes Bilateral: positive: No lid inflammation, Conjunctivae nml, No scleral icterus ENT: positive: No signs of dehydration Neck: positive: Trachea midline Respiratory: positive: No respiratory distress Skin: positive: No symptoms Extremities: positive: Pedal edema Neurologic/Psychiatric: positive: Disoriented to place, Disoriented to time, Other (somnolent, then agitated and impulsive) Palliative Care - POLST Patient has POLST: Yes POLST Status: DNR, Comfort Measures Tiredness/Fatigue: Severe (7-10) Drowsiness/Sedation: Severe (7-10) Anxiety: Severe (7-10) Performance Status: acute somnolence since starting quetiapine ambulatory with walker chronic loose stools; on cholestyramine SOA with exertion articulate confused, poor historian requires help with ADLs, transfers, toileting Impression and Recommendations - Palliative Care Impression: 73-year-old male h/o CVA 2008 and advanced COPD on oxygen, [facility] and has vascular dementia with behaviors. He was sent to ED two days ago for nausea, vomiting and discharged back home, possibly with a viral infection. He has been very somnolent and fatigued since starting quetiapine earlier in the week, it's unclear if the somnolence is related to his illness or the medication. Recommendations/Counseling Done: Vascular dementia with behaviors: Decreased cognition and increasing agitation and aggression. He's been groggy and somnolent since starting quetiapine earlier this week. I have reduced the dosage down to 12.5mg QAM. (It started out at 50mg on 08/21, was decreased to 25mg and moved to a.m. timing on 08/22.) Keep it 12.5mg for a few days (it's the weekend) and reassess for somnolence and agitation in the next week. Anxiety: Not controlled He remains on clonazepam, which had been increased to 1mg BID July 09. He also has a 0.5mg PRN dose. Staff reports no prior sedation with clonazepam prior to the addition of quetiapine Nausea/vomiting, etiology unknown: No recurrent episodes since discharge from ED two days ago. COPD, oxygen dependent: Chronic SOA, oxygen dependent, 1.5 to 2 liters. Continue Breo, Spiriva, Duonebs nebulizer as needed (used once this month so far), and Proair/albuterol inhaler as needed. Edema, non-pitting: Dropped off a pair of tubigrip "stockings" size F, to trial. Left them with Suzan [employer]. Continue Lasix 20 mg daily. Spoke with spouse who agreed with decreasing the quetiapine dosage and monitoring. Advance care planning: DNR and comfort care. Time Spent: 30 minutes were spent with more than 50% of the time spent on counseling and coordination of care.
== END 2018-08-24 12:01 | disposition home or self-care (01) ==
LOC: PC 12:00
PROVIDERS: ATTEND Nurse Practitioner
DX: Z51.5 Encounter for palliative care (principal); F01.51 Vascular dementia, unspecified severity, with behavioral disturbance; J44.9 Chronic obstructive pulmonary disease, unspecified; R26.2 Difficulty in walking, not elsewhere classified; Z99.81 Dependence on supplemental oxygen; E11.9 Type 2 diabetes mellitus without complications; R19.7 Diarrhea, unspecified; F41.9 Anxiety disorder, unspecified; R11.2 Nausea with vomiting, unspecified; R60.9 Edema, unspecified; Z66 Do not resuscitate; Z79.51 Long term (current) use of inhaled steroids; Z79.82 Long term (current) use of aspirin; Z79.4 Long term (current) use of insulin

== ENCOUNTER 2018-11-11 13:36 | Outpatient (CLI) | payer MEDICARE, OTHER, MEDICAID | END 2018-11-11 13:37 | disposition critical access hospital (66) | LOC: EMS 13:36 | PROVIDERS: ATTEND Surgery | DX: R06.02 Shortness of breath (principal) | CPT/HCPCS: A0425; A0427 ==

== ENCOUNTER 2018-11-11 13:53 | Inpatient (IN) | payer MEDICARE, OTHER, MEDICAID ==
[2018-11-11] MEDS ORDERED: ALBUTEROL NEB 2.5 MG/3 ML INH STA ×2 (14:11→15:21)
[2018-11-11] MEDS ORDERED: methylPREDNISolone SUCCINATE 125 MG/2 ML VIAL IVP STA (14:35)
--- NOTE | 2018-11-11 14:37 | ED Physician Documentation ---
PD HPI URI - Stated complaint Stated Complaint: LOW BACK PX/SOA - Chief complaint Chief Complaint: Resp - History obtained from History obtained from: Patient, EMS - History of Present Illness Timing - onset: How many weeks ago (1) Timing duration: Weeks (1) Timing details: Gradual onset Pain level max: 0 Pain level now: 0 Associated symptoms: Fever (Subjective), Chills, Nasal congestion, Rhinorrhea, Productive cough, Dyspnea. No: Sore throat, Swollen nodes Contributing factors: COPD / asthma. No: Travel Improves by: Rest Worsened by: Activity, Breathing Recently seen: Not recently seen - Additional information Additional information: 73-year-old male presents to the emergency department with difficulty breathing, coughing for the past several days to a week. Fevers. Hypoxic to the mid 80s with EMS prior to arrival. Given a DuoNeb en route. Occasionally uses oxygen at home, but not regularly. [facility]. Does have dementia Review of Systems Unable to obtain: Dementia Constitutional: reports: Fever, Chills Respiratory: reports: Dyspnea, Cough, Wheezing GI: denies: Abdominal Swelling, Nausea, Vomiting, Diarrhea Skin: denies: Rash Musculoskeletal: denies: Neck pain, Back pain Neurologic: denies: Headache PD PAST MEDICAL HISTORY - Past Medical History Cardiovascular: Hypertension, High cholesterol Respiratory: COPD, Emphysema Endocrine/Autoimmune: Type 2 diabetes GI: GERD : Benign prostate hypertrophy HEENT: None Psych: Depression Musculoskeletal: None Derm: None - Past Surgical History Past Surgical History: Yes Ortho: Spine surgery - Present Medications Home Medications: Ambulatory Orders Medication Instructions Recorded Confirmed Albuterol Sulfate [Proair Hfa 8.5 gm INH Q4H PRN 05/31/16 08/22/18 Inhaler] Aspirin 81 mg PO DAILY 05/31/16 08/22/18 Fluticasone/Vilanterol [Breo 1 puffs INH DAILY 05/31/16 08/22/18 Ellipta 200-25 Mcg INH] Furosemide [Lasix] 20 mg PO DAILY 05/31/16 08/22/18 Insulin Glargine [Lantus Solostar] 80 unit SUBQ DAILY 05/31/16 08/22/18 Ipratropium/Albuterol Sulfate 3 ml INH Q4H PRN 05/31/16 08/22/18 [Iprat-Albut 0.5-3(2.5) mg/3 ml] Tamsulosin [Flomax] 0.4 mg PO DAILY 05/31/16 08/22/18 Tiotropium [place] [Spiriva] 18 mcg PO DAILY 05/31/16 08/22/18 amLODIPine [Norvasc] 5 mg PO DAILY 05/31/16 08/22/18 Cholestyramine/Aspartame 4 gm PO BID #60 packet 12/24/16 08/22/18 [Cholestyramine Light Packet] Bisacodyl Supp [Dulcolax Supp] 10 mg MO DAILY 08/22/18 08/22/18 Guaifenesin/Dextromethorphan 10 ml PO .QID PRN 08/22/18 08/22/18 [Tussin Dm Cough Syrup] Ketoconazole 2% Cr 1 ea TP DAILY MDD Apply to 08/22/18 affected areas Loperamide [Imodium] 2 mg PO .AFTER EA LIQ STOOL PRN 08/22/18 08/22/18 Losartan Potassium 25 mg PO DAILY 08/22/18 08/22/18 Magnesium Hydroxide [Milk of 30 ml PO DAILY PRN 08/22/18 08/22/18 Magnesia] Melatonin 5 mg PO .QPM 08/22/18 08/22/18 Nystatin 1 ea TP BID 08/22/18 08/22/18 Omeprazole 40 mg PO DAILY 08/22/18 08/22/18 Ondansetron Odt [Zofran] 4 mg TL Q6H PRN #10 tablet 08/22/18 Ondansetron [Zuplenz] 4 mg PO TID PRN 08/22/18 08/22/18 Quetiapine Fumarate 12.5 mg PO .QPM 08/22/18 08/23/18 clonazePAM [Clonazepam] 0.5 mg PO DAILY PRN 08/22/18 08/22/18 clonazePAM [Clonazepam] 1 mg PO BID 08/22/18 08/22/18 - Allergies Allergies/Adverse Reactions: Allergies Allergy/AdvReac Type Severity Reaction Status Date / Time Sulfa (Sulfonamide Allergy Intermediate Nausea Verified 11/11/18 13:55 Antibiotics) felodipine AdvReac Intermediate Dizziness Verified 11/11/18 13:55 fenofibrate nanocrystallized AdvReac Intermediate Cramps Verified 11/11/18 13:55 * [From Tricor] fenofibrate,micronized * AdvReac Intermediate Cramps Verified 11/11/18 13:55 [From Tricor] losartan [Losartan] AdvReac Intermediate Respiratory Verified 11/11/18 13:55 metoprolol AdvReac Intermediate Respiratory Verified 11/11/18 13:55 minoxidil AdvReac Intermediate Emesis Verified 11/11/18 13:55 clonidine AdvReac Mild Cramps Verified 11/11/18 13:55 donepezil [Donepezil] AdvReac Unknown Unknown Verified 11/11/18 13:55 iodine AdvReac Unknown Unknown Verified 11/11/18 13:55 furosemide AdvReac Nausea Verified 11/11/18 13:55 haloperidol AdvReac Hallucinati Verified 11/11/18 13:55 ons hydrochlorothiazide AdvReac Emesis Verified 11/11/18 13:55 - Social History Does the pt smoke?: No Smoking Status: Never smoker Does the pt drink ETOH?: No Does the pt have substance abuse?: No - Immunizations Immunizations are current?: Yes - POLST Patient has POLST: Yes PD ED PE NORMAL - Vitals Vital signs reviewed: Yes - General General: No acute distress, Well developed/nourished, Other (Alert, oriented to person and place) - HEENT HEENT: PERRL, Moist mucous membranes - Neck Neck: Supple, no meningeal sign - Cardiac Cardiac: RRR, Strong equal pulses - Respiratory Respiratory: Other (Diffuse wheezing and crackles bilaterally. Wet sounding cough) - Abdomen Abdomen: Soft, Non tender, Non distended - Derm Derm: Warm and dry, No rash - Extremities Extremities: No edema - Neuro Neuro: Other (Alert, oriented to person, repetitive) Results - Vitals Vitals: Vital Signs - 24 hr 11/11/18 11/11/18 11/11/18 13:56 14:07 15:47 Temperature 37.6 C H Heart Rate 101 H 101 H 96 Respiratory 20 20 20 Rate Blood Pressure 193/65 H 193/65 H O2 Saturation 96 97 Oxygen O2 Source Nasal cannula Oxygen Flow Rate 4 - Labs Labs: Laboratory Tests 11/11/18 11/11/18 11/11/18 15:01 15:01 15:01 WBC 16.0 H RBC 4.91 Hgb 12.9 L Hct 40.6 L MCV 82.7 MCH 26.3 L MCHC 31.9 L RDW 16.6 H Plt Count 240 MPV 6.5 L Neut # (Auto) 12.9 H Lymph # (Auto) 1.5 Otero # (Auto) 1.4 H Eos # (Auto) 0.1 Baso # (Auto) 0.1 Absolute Nucleated RBC 0.01 Nucleated RBC % 0.0 Sodium 142 Potassium 3.8 Chloride 106 Carbon Dioxide 25 Anion Gap 11.0 BUN 21 H Creatinine 1.3 H Estimated GFR (MDRD) 54 L Glucose 66 L Glycated Hemoglobin Estim Average Glucose Lactic Acid 2.0 Calcium 8.8 Total Bilirubin 0.6 AST 17 ALT 13 Alkaline Phosphatase 78 Total Protein 7.6 Albumin 3.8 Globulin 3.8 Albumin/Globulin Ratio 1.0 Lipase 29 11/11/18 15:01 WBC RBC Hgb Hct MCV MCH MCHC RDW Plt Count MPV Neut # (Auto) Lymph # (Auto) Otero # (Auto) Eos # (Auto) Baso # (Auto) Absolute Nucleated RBC Nucleated RBC % Sodium Potassium Chloride Carbon Dioxide Anion Gap BUN Creatinine Estimated GFR (MDRD) Glucose Glycated Hemoglobin 6.3 H Estim Average Glucose 134 H Lactic Acid Calcium Total Bilirubin AST ALT Alkaline Phosphatase Total Protein Albumin Globulin Albumin/Globulin Ratio Lipase - Rads (name of study) Chest x-ray Radiology: Prelim report reviewed, EMP read contemporaneously, See rad report (Faint nodular opacities in both lower lung zones, right greater than left. Developing pneumonia or aspiration cannot be excluded) PD MEDICAL DECISION MAKING - ED course Complexity details: reviewed results, re-evaluated patient, considered differential, d/w patient, d/w family ED course: 73-year-old male presents to the emergency department with pneumonia, hypoxia. Did improve slightly with nebulizer treatment steroids and antibiotics. If oxygen is removed, he still drops down to 88-89% on room air while lying in bed. Will admit for further evaluation and care. Discussed the case with the hospitalist, Dr. Hernandez who accepts. This document was made in part using voice recognition software. While efforts are made to proofread this document, sound alike and grammatical errors may occur. Departure - Departure Disposition: 66 [facility] DC/Xfer Clinical Impression: COPD exacerbation Pneumonia Qualifiers: Pneumonia type: due to unspecified organism Laterality: bilateral Lung location: lower lobe of lung Qualified Code(s): J18.1 - Lobar pneumonia, unspecified organism Condition: Stable Discharge Date/Time: 11/11/18 17:06
--- NOTE | 2018-11-11 15:04 | XRAY Report ---
Reason: dyspnea Procedure Date: 11/11/2018 Accession Number: [id number] / [id number] Procedure: XR - Chest 1 View X-Ray CPT Code: 39956 FULL RESULT: EXAM: CHEST RADIOGRAPHY EXAM DATE: 11/11/2018 02:28 PM. CLINICAL HISTORY: Dyspnea. COMPARISON: CHEST 1 VIEW 08/22/2018 7:44 PM. TECHNIQUE: 1 view. FINDINGS: Lungs/Pleura: Faint nodular opacities are seen in both lower lung zones, right greater than left. Mild developing pneumonia or aspiration cannot be excluded. Mediastinum: Within exam limitations, the cardiomediastinal contour is normal. Other: None. IMPRESSION: Faint nodular opacities in both lower lung zones, right greater than left. Developing pneumonia or aspiration cannot be excluded. RADIA
[2018-11-11 15:15] LABS: BASOPHILS # (AUTO) 0.1 10^3/uL (0.0-0.1); BASOPHILS % (AUTO) 0.6 %; EOSINOPHILS # (AUTO) 0.1 10^3/uL (0.0-0.7); EOSINOPHILS % (AUTO) 0.5 %; HGB - HEMOGLOBIN 12.9 g/dL (14.0-18.0); LYMPHOCYTES # (AUTO) 1.5 10^3/uL (1.5-3.5); LYMPHOCYTES % (AUTO) 9.4 %; MEAN CORPUSCULAR HEMOGLOBIN 26.3 pg (27.0-31.0); MEAN CORPUSCULAR HGB CONC 31.9 g/dL (32.0-36.0); MEAN CORPUSCULAR VOLUME 82.7 fL (80.0-94.0); MEAN PLATELET VOLUME 6.5 fL (7.4-11.4); MONOCYTES # (AUTO) 1.4 10^3/uL (0.0-1.0); MONOCYTES % (AUTO) 8.7 %; NEUTROPHILS # (AUTO) 12.9 10^3/uL (1.5-6.6); NEUTROPHILS % (AUTO) 80.8 %; PLT - PLATELET COUNT 240 10^3/uL (130-450); RED BLOOD COUNT 4.91 10^6/uL (4.70-6.10); RED CELL DISTRIBUTION WIDTH 16.6 % (12.0-15.0)
[2018-11-11] MEDS ORDERED: cefTRIAXone 1 GM VIAL IVP STA (15:21)
[2018-11-11] MEDS ORDERED: AZITHROMYCIN INJ 500 MG in SODIUM CHLORIDE 0.9% 250 ML IV STA (15:21)
[2018-11-11 15:35] LABS: ALBUMIN 3.8 g/dL (3.2-5.5); BILIRUBIN,TOTAL 0.6 mg/dL (0.2-1.0); CALCIUM 8.8 mg/dL (8.5-10.3); CREATININE 1.3 mg/dL (0.6-1.2); TOTAL PROTEIN 7.6 g/dL (6.7-8.2)
[2018-11-11] MEDS ORDERED: LOPERAMIDE 2 MG CAPSULE PO PRN (16:09)
[2018-11-11] MEDS ORDERED: clonazePAM 0.5 MG TABLET PO PRN (16:09)
[2018-11-11] MEDS ORDERED: ACETAMINOPHEN 325 MG TABLET PO PRN (16:16)
[2018-11-11] MEDS ORDERED: ONDANSETRON ODT 4 MG TABLET TL PRN (16:16)
[2018-11-11] MEDS ORDERED: guaiFENesin/CODEINE 5 ML UDC PO STA (16:24)
--- NOTE | 2018-11-11 16:27 | HISTORY & PHYSICAL EXAMINATION ---
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 Fevers. H ypoxic to the mid 80s with EMS prior to arrival. Given a DuoNeb en route. Occasionally uses oxygen at home, but not regularly. Lives at home place. Patient is a DNR with comfort care measures. In the emergency department patient received 1 dose of azithromycin as well as Rocephin and approximately 3 nebulizer treatments and IV Solu-Medrol. On examination patient had Crackles which a lateral were worse on the right versus the left, dysarthric with residual hemiplegia hemiparesis with somewhat decreased recovery unit operator strength to the right versus left and good dorsi and plantar flexion however patient was favoring the left side with some drooping noted. Pronator drift also noted. Patient is not oriented to place or time. On lab analysis patient had a white count of 16 K, H&H stable, lactic acid 2.0, creatinine of 1.3 with a history of chronic kidney disease stage III baseline 1.01.6. Chest x-ray showed right more than left nodular opacities cannot entirely exclude aspiration. Patient's vital signs with a T-max of 37.6 tachycardic, blood pressure 193/65, RR of 20, 97% O2 sats on 2 L nasal cannula. PMH/PSH - Past Medical History Cardiovascular: positive: Hypertension, High cholesterol Respiratory: positive: COPD, Emphysema Endocrine/Autoimmune: positive: Type 2 diabetes GI: positive: GERD : positive: Benign prostate hypertrophy HEENT: positive: None Psych: positive: Depression Musculoskeletal: positive: None Derm: positive: None MRSA Hx?: No - Past Surgical History Ortho: positive: Spine surgery Social & Family Hx - Social History Does the pt smoke?: No Smoking Status: Never smoker Does the pt drink ETOH?: No Does the pt have substance abuse?: No - POLST Patient has POLST: Yes Meds/Allgy - Home Medications Home Medications: Ambulatory Orders Medication Instructions Recorded Confirmed Albuterol Sulfate [Proair Hfa 8.5 gm INH Q4H PRN 05/31/16 08/22/18 Inhaler] Aspirin 81 mg PO DAILY 05/31/16 08/22/18 Fluticasone/Vilanterol [Breo 1 puffs INH DAILY 05/31/16 08/22/18 Ellipta 200-25 Mcg INH] Furosemide [Lasix] 20 mg PO DAILY 05/31/16 08/22/18 Insulin Glargine [Lantus Solostar] 80 unit SUBQ DAILY 05/31/16 08/22/18 Ipratropium/Albuterol Sulfate 3 ml INH Q4H PRN 05/31/16 08/22/18 [Iprat-Albut 0.5-3(2.5) mg/3 ml] Tamsulosin [Flomax] 0.4 mg PO DAILY 05/31/16 08/22/18 Tiotropium [place] [Spiriva] 18 mcg PO DAILY 05/31/16 08/22/18 amLODIPine [Norvasc] 5 mg PO DAILY 05/31/16 08/22/18 Cholestyramine/Aspartame 4 gm PO BID #60 packet 12/24/16 08/22/18 [Cholestyramine Light Packet] Bisacodyl Supp [Dulcolax Supp] 10 mg GA DAILY 08/22/18 08/22/18 Guaifenesin/Dextromethorphan 10 ml PO .QID PRN 08/22/18 08/22/18 [Tussin Dm Cough Syrup] Ketoconazole 2% Cr 1 ea TP DAILY MDD Apply to 08/22/18 affected areas Loperamide [Imodium] 2 mg PO .AFTER EA LIQ STOOL PRN 08/22/18 08/22/18 Losartan Potassium 25 mg PO DAILY 08/22/18 08/22/18 Magnesium Hydroxide [Milk of 30 ml PO DAILY PRN 08/22/18 08/22/18 Magnesia] Melatonin 5 mg PO .QPM 08/22/18 08/22/18 Nystatin 1 ea TP BID 08/22/18 08/22/18 Omeprazole 40 mg PO DAILY 08/22/18 08/22/18 Ondansetron Odt [Zofran] 4 mg TL Q6H PRN #10 tablet 08/22/18 Ondansetron [Zuplenz] 4 mg PO TID PRN 08/22/18 08/22/18 Quetiapine Fumarate 12.5 mg PO .QPM 08/22/18 08/23/18 clonazePAM [Clonazepam] 0.5 mg PO DAILY PRN 08/22/18 08/22/18 clonazePAM [Clonazepam] 1 mg PO BID 08/22/18 08/22/18 - Allergies Allergies/Adverse Reactions: Allergies Allergy/AdvReac Type Severity Reaction Status Date / Time Sulfa (Sulfonamide Allergy Intermediate Nausea Verified 11/11/18 13:55 Antibiotics) felodipine AdvReac Intermediate Dizziness Verified 11/11/18 13:55 fenofibrate nanocrystallized AdvReac Intermediate Cramps Verified 11/11/18 13:55 * [From Tricor] fenofibrate,micronized * AdvReac Intermediate Cramps Verified 11/11/18 13:55 [From Tricor] losartan [Losartan] AdvReac Intermediate Respiratory Verified 11/11/18 13:55 metoprolol AdvReac Intermediate Respiratory Verified 11/11/18 13:55 minoxidil AdvReac Intermediate Emesis Verified 11/11/18 13:55 clonidine AdvReac Mild Cramps Verified 11/11/18 13:55 donepezil [Donepezil] AdvReac Unknown Unknown Verified 11/11/18 13:55 iodine AdvReac Unknown Unknown Verified 11/11/18 13:55 furosemide AdvReac Nausea Verified 11/11/18 13:55 haloperidol AdvReac Hallucinati Verified 11/11/18 13:55 ons hydrochlorothiazide AdvReac Emesis Verified 11/11/18 13:55 Review of Systems - All Other Systems All Other Systems: reports: Reviewed and negative Prior Level of Functionality: Unknown baseline Functional capacity Exam - Vital Signs Vital Signs: Vital Signs x48h Temp Pulse Resp BP Pulse Ox 11/11/18 15:47 96 20 11/11/18 14:07 101 H 20 193/65 H 97 11/11/18 13:56 37.6 C H 101 H 20 193/65 H 96 - Physical Exam General Appearance: positive: No acute distress, Alert, Other (Patient is plea santly demented, Dysarthric) Eyes Bilateral: positive: Normal inspection, PERRL, EOMI ENT: positive: ENT inspection nml, Pharynx nml, No signs of dehydration Neck: positive: Nml inspection, Thyroid nml, No JVD, Trachea midline. negative: Thyromegaly Respiratory: positive: Chest non-tender Cardiovascular: positive: Regular rate & rhythm, No murmur, No gallop Peripheral Pulses: positive: 2+ Abdomen: positive: Non-tender, No organomegaly, Nml bowel sounds, No distention. negative: Tenderness Skin: positive: Color nml, No rash Extremities: positive: Non-tender, Full ROM Neurologic/Psychiatric: positive: Disoriented to place, Disoriented to time, Weakness (Residual right sided hemiplegia/hemiparesis), Facial droop, Slurred/abnml speech. negative: Depressed mood/affect Babinski Reflex: Right: Absent, Left: Absent Results - Lab Results Lab results reviewed: Yes Fish Bones: 11/11/18 15:01 11/11/18 15:01 Other Lab Results: Lab Results x24hrs 11/11/18 11/11/18 11/11/18 Range/Units 15:01 15:01 15:01 WBC 16.0 H (4.8-10.8) x10^3/uL RBC 4.91 (4.70-6.10) 10^6/uL Hgb 12.9 L (14.0-18.0) g/dL Hct 40.6 L (42.0-52.0) % MCV 82.7 (80.0-94.0) fL MCH 26.3 L (27.0-31.0) pg MCHC 31.9 L (32.0-36.0) g/dL RDW 16.6 H (12.0-15.0) % Plt Count 240 (130-450) 10^3/uL MPV 6.5 L (7.4-11.4) fL Neut # (Auto) 12.9 H (1.5-6.6) 10^3/uL Lymph # (Auto) 1.5 (1.5-3.5) 10^3/uL [place] # (Auto) 1.4 H (0.0-1.0) 10^3/uL Eos # (Auto) 0.1 (0.0-0.7) 10^3/uL Baso # (Auto) 0.1 (0.0-0.1) 10^3/uL Absolute Nucleated RBC 0.01 x10^3/uL Nucleated RBC % 0.0 /100WBC Sodium 142 (135-145) mmol/L Potassium 3.8 (3.5-5.0) mmol/L Chloride 106 (101-111) mmol/L Carbon Dioxide 25 (21-32) mmol/L Anion Gap 11.0 (6-13) BUN 21 H (6-20) mg/dL Creatinine 1.3 H (0.6-1.2) mg/dL Estimated GFR (MDRD) 54 L (>89) Glucose 66 L (70-100) mg/dL Lactic Acid 2.0 (0.5-2.2) mmol/L Calcium 8.8 (8.5-10.3) mg/dL Total Bilirubin 0.6 (0.2-1.0) mg/dL AST 17 (10-42) IU/L ALT 13 (10-60) IU/L Alkaline Phosphatase 78 (42-121) IU/L Total Protein 7.6 (6.7-8.2) g/dL Albumin 3.8 (3.2-5.5) g/dL Globulin 3.8 (2.1-4.2) g/dL Albumin/Globulin Ratio 1.0 (1.0-2.2) Lipase 29 (22-51) U/L - Diagnostic Imaging Results Diagnostic Imaging Results: positive: Final report reviewed (Chest x-ray shows bibasilar opacities right more than left) - EKG Results EKG Interpreted Independently: No Sepsis Event Note (H) - Evaluation Current Stage of Sepsis: Sepsis Possible source of Sepsis: positive: Pulmonary - Sepsis Criteria Sepsis Criteria: Recorded Heart Rate greater than 90 bpm, Respiratory: Increasing oxygen requirements, WBC count greater than 12,000 or less than 4000 Impression/Plan - Problem List Problem List: 1. Sepsis 2. Suspected aspiration pneumonia 3. Acute hypoxemic respiratory failure requiring oxygenation 4. Acute COPD exacerbation 5. Hypertensive urgency 6. Mild hypoglycemia 7. Insulin requiring type 2 diabetes mellitus 8. Dementia with behavioral disturbances, Likely vascular type 9. History of a CVA 10 years prior with residual right-sided hemiparesis/hemiplegia and oropharyngeal dysphagia 10. Hyperlipidemia 11. Advance care planning education and counseling Plan: Admit to [facility], telemetry, initiate empiric coverage with Unasyn as component of aspiration pneumonia highly suspected, received Rocephin and azithromycin in the ED. Also given Solu-Medrol despite him being insulin requiring type 2 diabetes mellitus however initial glucose was 66 and mildly hypoglycemic likely has labile sugars. Placed on incentive spirometry, duo nebs, formoterol along with Pulmicort inhaled twice daily. Patient was on Brio Ellipta as well as Spiriva at home. Will place on supplemental oxygen [place] as patient is not O2 dependent. Malignant hypertension we will restart losartan and Norvasc. IV hydralazine for hypertensive excursions. Bolus and basal coverage for hyperglycemic excursions. Continue statin. Due to patient's history of CVA, Placed on dysphagia pured honey thickened diet due to possible oral pharyngeal dysphasia as it pertains to his progressive vascular type dementia. Patient likely has sundowning as he was placed on melatonin and Seroquel at home. Patient was also on clonazepam and other sedate of agents such as guaifenesin and dextromethorphan that may have precipitated aspiration of oral secretions. We will continue with medical management. Obtain sputum Gram stain and culture. Blood cultures to follow. Lactic acid within normal limits. Will defer off IV steroids for now. Advance care education counseling provided on disease management symptom management and trajectory of illness. Total critical care time: 30 minutes CODE STATUS: DNR with comfort care measures Core Measures - Anticipated LOS I expect patient to be DC'd or transferred within 96 hours.: Yes - Issues Hospital Issues and Management Plan: Patient will require oxygenation IV antibiotics medical management and likely be returned to home place, May need ST/OT PT - DVT/VTE - Prophylaxis VTE/DVT Device ordered at admit?: Yes VTE/DVT Prophylaxis med ordered at admit?: Yes - Stroke - Rehab Assessment Rehab services assessment to be ordered?: No - AMI - Statin at Admit Aspirin Prescribed on Admit: Yes
[2018-11-11 16:55] LABS: HB2 TOTAL 14.7 g/dL; HEMOGLOBIN A1C 0.66 g/dL; HEMOGLOBIN A1C % 6.3 % (4.6-6.2)
[2018-11-11] MEDS: INSULIN ASPART 300 UNIT/3 ML PEN SUBQ SCH ×2 (18:18→21:19)
[2018-11-11] MEDS: SODIUM CHLORIDE FLUSH 0.9% 10 ML SYRINGE IVP SCH (18:18)
[2018-11-11] MEDS: AMPICILLIN/SULBACTAM 3 GM in SODIUM CHLORIDE 0.9% MINIBAG 100 ML IV SCH (18:19)
[2018-11-11 20:28] LABS: BILIRUBIN,URINE NEGATIVE (NEGATIVE); GLUCOSE, URINE (UA) NEGATIVE (NEGATIVE); KETONES,URINE (UA) NEGATIVE (NEGATIVE); LEUKOCYTE ESTERASE, URINE NEGATIVE (NEGATIVE); NITRITE,URINE NEGATIVE (NEGATIVE); OCCULT BLOOD,URINE NEGATIVE (NEGATIVE); PH,URINE 5.5 PH (5.0-7.5); PROTEIN,URINE >=300 mg/dL (NEGATIVE); UROBILINOGEN,URINE 0.2 (NORMAL) E.U./dL (NORMAL)
[2018-11-11 20:30] LABS: CLARITY,URINE CLEAR (CLEAR)
[2018-11-11] MEDS: IPRATROPIUM/ALBUTEROL 3 ML NEB INH PRN (20:30)
[2018-11-11] MEDS: BUDESONIDE 0.5 MG/2 ML NEB INH SCH (20:30)
[2018-11-11] MEDS: FORMOTEROL FUMARATE NEB 20 MCG/2 ML INH SCH (20:31)
[2018-11-11 20:37] LABS: BACTERIA,URINE None Seen /HPF (None Seen); RBC,URINE None Seen /HPF (0-5); SQUAMOUS EPITHELIAL CELL,UR NONE SEEN (<= Few)
[2018-11-11 20:38] LABS: CASTS, URINE 3-5 Fine Granular /LPF
[2018-11-11] MEDS: ATORVASTATIN 40 MG TABLET PO SCH (20:59)
[2018-11-11] MEDS ORDERED: MONTELUKAST 10 MG TABLET PO SCH (21:00)
[2018-11-11] MEDS: FAMOTIDINE 20 MG TABLET PO SCH (21:00)
[2018-11-11] MEDS: amLODIPine 5 MG TABLET PO SCH (21:00)
[2018-11-11] MEDS: guaiFENesin 600 MG TABLET PO SCH (21:12)
[2018-11-11] MEDS: INSULIN GLARGINE 300 UNIT/3 ML PEN SUBQ SCH (21:21)
[2018-11-12] MEDS: SODIUM CHLORIDE FLUSH 0.9% 10 ML SYRINGE IVP SCH ×3 (00:38→18:44)
[2018-11-12] MEDS: AMPICILLIN/SULBACTAM 3 GM in SODIUM CHLORIDE 0.9% MINIBAG 100 ML IV SCH ×4 (00:39→18:44)
[2018-11-12] MEDS: OLANZapine ODT 5 MG TABLET TL PRN (00:39)
[2018-11-12] MEDS: SODIUM CHLORIDE FLUSH 0.9% 10 ML SYRINGE IVP PRN ×3 (01:29→06:25)
[2018-11-12 05:21] LABS: BASOPHILS % (AUTO) 0.1 %; HGB - HEMOGLOBIN 11.5 g/dL (14.0-18.0); LYMPHOCYTES # (AUTO) 0.7 10^3/uL (1.5-3.5); LYMPHOCYTES % (AUTO) 5.4 %; MEAN CORPUSCULAR HEMOGLOBIN 26.3 pg (27.0-31.0); MEAN CORPUSCULAR VOLUME 82.2 fL (80.0-94.0); MEAN PLATELET VOLUME 6.8 fL (7.4-11.4); MONOCYTES # (AUTO) 0.5 10^3/uL (0.0-1.0); MONOCYTES % (AUTO) 3.4 %; NEUTROPHILS # (AUTO) 12.6 10^3/uL (1.5-6.6); NEUTROPHILS % (AUTO) 91.1 %; PLT - PLATELET COUNT 224 10^3/uL (130-450); RED BLOOD COUNT 4.37 10^6/uL (4.70-6.10); WHITE BLOOD COUNT 13.8 x10^3/uL (4.8-10.8)
[2018-11-12 05:35] LABS: CALCIUM 8.2 mg/dL (8.5-10.3); CREATININE 1.6 mg/dL (0.6-1.2); PHOSPHORUS 2.6 mg/dL (2.5-4.6)
[2018-11-12 05:38] LABS: CHOLESTEROL 121 mg/dL; HDL CHOLESTEROL 41 mg/dL; LDL CHOLESTEROL,CALCULATED 59 mg/dL; LDL/HDL RATIO 1.4 (<3.6); VLDL CHOLESTEROL 21 mg/dL
[2018-11-12] MEDS: IPRATROPIUM/ALBUTEROL 3 ML NEB INH PRN (07:50)
[2018-11-12] MEDS: FORMOTEROL FUMARATE NEB 20 MCG/2 ML INH SCH ×2 (07:50→19:47)
[2018-11-12] MEDS: BUDESONIDE 0.5 MG/2 ML NEB INH SCH ×2 (07:51→19:48)
[2018-11-12] MEDS: hydrALAZINE INJ 20 MG/ML VIAL IVP PRN ×2 (08:22→13:06)
[2018-11-12] MEDS: guaiFENesin 600 MG TABLET PO SCH ×2 (08:22→22:27)
[2018-11-12] MEDS: amLODIPine 5 MG TABLET PO SCH ×2 (08:22→22:28)
[2018-11-12] MEDS: TAMSULOSIN 0.4 MG CAPSULE PO SCH (08:22)
[2018-11-12] MEDS: FAMOTIDINE 20 MG TABLET PO SCH ×2 (08:22→14:31)
[2018-11-12] MEDS: ENOXAPARIN 40 MG/0.4 ML SYRINGE SUBQ SCH (08:23)
[2018-11-12] MEDS: INSULIN ASPART 300 UNIT/3 ML PEN SUBQ SCH ×4 (08:24→22:28)
[2018-11-12] MEDS: POLYETHYLENE GLYCOL 3350 17 GM PACKET PO SCH (08:38)
[2018-11-12] MEDS ORDERED: MEMANTINE 5 MG TABLET PO SCH (09:00)
[2018-11-12] MEDS ORDERED: amLODIPine 5 MG TABLET PO SCH (09:00)
[2018-11-12] MEDS ORDERED: ASPIRIN CHEW 81 MG TABLET PO SCH (09:00)
[2018-11-12 09:27] LABS: URIC ACID 6.5 mg/dL (2.6-7.2)
[2018-11-12] MEDS: IPRATROPIUM/ALBUTEROL 3 ML NEB INH SCH ×3 (11:50→19:47)
--- NOTE | 2018-11-12 12:58 | MISCELLANEOUS PROVIDER NOTE ---
Miscellaneous Provider Note - - Note: Subjective: Patient seen at bedside with no acute events. Nurse conveys that patient is pocketing and pooling secretions to the oropharynx along with his pills. Patient is a poor historian. Objective: Vital signs are hemodynamically stable. Afebrile. Heart rate of 96 bpm. Blood pressure 151/49. Respiratory rate 18. 95% O2 saturation on 2 L nasal cannula. General: Patient is chronically ill-appearing speaking full sentences in mild respiratory distress feeling fatigued. HEENT: Pupils equal round react to light and accommodation. Extraocular muscles are bilateral intact. NCAT. Oropharynx secretions noted with no lesions. Moist mucous membranes. Neck: No JVD/bruits/lymphadenopathy/thyromegaly next CV/lungs: S1-S2 within normal limits. No murmurs gallops clicks or rubs. Chest has decreased breath sounds to the right versus the left with mild bibasilar rales. No wheezing. No increased work of breath or retractions. Abdomen: Soft nontender nondistended positive bowel sounds all quadrants no hepatosplenomegaly. Extremities/skin: No edema, clubbing, or cyanosis. No maculopapular rashes. No lesions, no joint effusions. Next Neuro: Patient with underlying dementia difficult to assess for psychiatric issues however no psychomotor reactive retardation. There is residual right upper extremity right lower extremity hemiparesis/hemiplegia from prior stroke. DTRs are bilateral and symmetric. Labs: Reviewed Imaging studies: Reviewed Assessment/plan: Problem List: 1. Sepsis -Secondary to aspiration pneumonia currently on IV Unasyn and this has been resolving, Decreased WBC trending we will continue to follow clinically. We will continue with medical management. Obtain sputum Gram stain and culture. Blood cultures to follow. Lactic acid within normal limits. Will defer off IV steroids for now. 2. Suspected aspiration pneumonia -Patient continues on IV Unasyn, speech pathology to evaluate for food consistency, patient pulling pills to the oropharynx and will have these crushed and delivered via applesauce. 3. Acute hypoxemic respiratory failure requiring oxygenation -Patient is not a hole on home O2 dependent and requires oxygenation at this point likely will return to memory care unit with this. Correct underlying causes. 4. Acute COPD exacerbation -Continue with above treatments along with spirometry, nebs, pulmonary toileting, sputum Gram stain culture to follow 5. Malignant hypertension -Would continue to titrate blood pressure meds, IV hydralazine as needed with parameters, consider placing on a clonidine patch 6. Vascular type dementia with behavioral disturbances -Continue with Namenda and patient is on Seroquel for insomnia, agitation and "sun-downing" 7. Insulin requiring type 2 diabetes mellitus -Continue with bolus and basal correctional dosing and glycemic control 8. History of a CVA 10 years prior with residual right-sided hemiparesis/hemiplegia and oropharyngeal dysphagia -Placed on dysphagia pured honey thickened diet due to possible oral pharyngeal dysphasia as it pertains to his progressive vascular type dementia. Speech pathology to follow for an official evaluation. -Continue with statin, aspirin and correction of modifiable cardiovascular risk factors 10. Hyperlipidemia -Continue with statin 11. Advance care planning education and counseling -Palliative care consultation in place CODE STATUS: DNR with comfort care measures
[2018-11-12] MEDS: BISACODYL 10 MG SUPP PR SCH (13:58)
[2018-11-12] MEDS ORDERED: SCOPOLAMINE PATCH TOP SCH (15:00)
[2018-11-12] MEDS ORDERED: cloNIDine 0.2 MG PATCH TOP SCH (15:00)
--- NOTE | 2018-11-12 16:00 | CONSULTATION NOTE ---
Palliative Care Follow Up - Referral Referring Provider: Dr Hernandez Time of Visit: Monday11/12/2018. 14:10 - 14:40 Referral setting: Hospitalized patient Referral Reason: Pneumonia, COPD exacerbation - Information Sources Records reviewed: RN notes reviewed History/Review of Systems obtained from: Patient, Family, Other (Hospitalist) Exam limitations: Clinical condition (Advanced dementia) - History of Present Illness Update Brief HPI Update: Thank you, Dr. Hernandez, for asking the palliative care consult service to be involved in the care of your patient. I am asked to provide support regarding goals of care. 73-year-old male h/o CVA 2008 currently hospitalized for acute respiratory failure and COPD exacerbation, with sepsis secondary to suspected aspiration pneumonia. He resides at [facility] and has vascular dementia with behaviors and oxygen-dependent COPD. 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 Patient recognizes me from my previous visits to his memory care unit. He is alert but shaky, with tremors in RUE, too shaky to hold a small spoon when given medications mixed in applesauce. He attempts to respond appropriately to questions but his short term memory defi cits prevent meaningful answers. Lungs are diminished throughout, expiratory wheeze audible via auscultation, he uses respiratory accessory muscles. Drowsy, falls asleep during Palliative Care discussion with spouse. Spouse notes he's calm and much quieter today vs yesterday, when admitted. 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 The patient was born in [place] and is of [place] background. They moved to [facility] [place], bought an old, fixer-upper house on 11 acres in [place]. Skye still lives on that same land in [place], though they've sold part of the land off. They raised two sons who were 2.5 and 5 years old when they moved here. The elder son lives in [place], the younger in [place]. 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 Medications/Allergies - Medications Active Medication List: Active Medications Acetaminophen (Tylenol) 650 mg PO Q4HR PRN PRN Reason: Pain 1 to 4 Albuterol/Ipratropium (Duoneb) 3 ml INH RTQID [facility] Last Admin: 11/12/18 15:35 Dose: 3 ml Amlodipine Besylate (Norvasc) 5 mg PO BID [facility] Aspirin ([place] Aspirin) 81 mg PO DAILY [facility] Atorvastatin Calcium (Lipitor) 40 mg PO QPM [facility] Last Admin: 11/11/18 20:59 Dose: 40 mg Bisacodyl (Dulcolax Supp) 10 mg [place] DAILY [facility] Last Admin: 11/12/18 13:58 Dose: 10 mg Budesonide (Pulmicort) 0.5 mg INH RTBID [facility] Last Admin: 11/12/18 07:51 Dose: 0.5 mg Clonazepam (Klonopin) 0.5 mg PO DAILY PRN PRN Reason: Anxiety Clonidine HCl ([id number]) 1 patch TOP Q7D [facility] Last Admin: 11/12/18 14:29 Dose: 1 patch Enoxaparin Sodium (Lovenox) 40 mg SUBQ DAILY [facility] Last Admin: 11/12/18 08:23 Dose: 40 mg Famotidine (Pepcid) 20 mg PO DAILY [facility] Last Admin: 11/12/18 14:31 Dose: 20 mg Formoterol Fumarate (Perforomist) 20 mcg INH BID [facility] Last Admin: 11/12/18 07:50 Dose: 20 mcg Guaifenesin (Mucinex) 1,200 mg PO BID [facility] Hydralazine HCl (Apresoline Inj) 10 mg IVP Q4HR PRN PRN Reason: SBP>160 Last Admin: 11/12/18 13:06 Dose: 10 mg Ampicillin Sodium/Sulbactam (Sodium 3 gm/ Sodium Chloride) 100 mls @ 200 mls/hr IV Q6HR [facility] Last Infusion: 11/12/18 12:58 Dose: Infused Insulin Aspart (Novolog) 3 - 11 unit SUBQ 0800,1200,1700,2100 VIRAJ; Protocol Last Admin: 11/12/18 12:05 Dose: 7 unit Insulin Glargine (Lantus Solostar) 40 unit SUBQ QPM [facility] Last Admin: 11/11/18 21:21 Dose: 40 unit Loperamide HCl (Imodium) 2 mg PO .AFTER EA LIQ STOOL PRN PRN Reason: Diarrhea Memantine (Namenda) 5 mg PO BID [facility] Montelukast Sodium (Singulair) 10 mg PO QPM [facility] Olanzapine (Zyprexa Odt) 5 mg TL QPM PRN PRN Reason: Agitation/insomnia Last Admin: 11/12/18 00:39 Dose: 5 mg Ondansetron HCl (Zofran Odt) 4 mg TL Q6HR PRN PRN Reason: Nausea / Vomiting Polyethylene Glycol (Miralax) 17 gm PO DAILY [facility] Last Admin: 11/12/18 08:38 Dose: 17 gm Scopolamine HBr (Transderm-Scop) 1 patch TOP Q3D [facility] Last Admin: 11/12/18 14:28 Dose: 1 patch Sodium Chloride (Normal Saline Flush 0.9%) 10 ml IVP PRN PRN PRN Reason: NEEDED PER PROVIDER ORDERS Last Admin: 11/12/18 06:25 Dose: 10 ml Sodium Chloride (Normal Saline Flush 0.9%) 10 ml IVP 0100,0900,1700 [facility] Last Admin: 11/12/18 08:24 Dose: 10 ml Tamsulosin HCl (Flomax) 0.4 mg PO DAILY [facility] Last Admin: 11/12/18 08:22 Dose: 0.4 mg Albuterol Sulfate [Proair Hfa Inhaler] 2 puffs INH Q4H PRN 05/31/16 Aspirin 81 mg PO DAILY 05/31/16 Fluticasone/Vilanterol [Breo Ellipta 200-25 Mcg INH] 1 puffs INH DAILY 05/31/16 Furosemide [Lasix] 20 mg PO DAILY 05/31/16 Insulin Glargine [Lantus Solostar] 80 unit SUBQ DAILY 05/31/16 Ipratropium/Albuterol Sulfate [Iprat-Albut 0.5-3(2.5) mg/3 ml] 3 ml INH Q4H PRN 05/31/16 Tamsulosin [Flomax] 0.4 mg PO DAILY 05/31/16 Tiotropium [place] [Spiriva] 18 mcg PO DAILY 05/31/16 amLODIPine [Norvasc] 5 mg PO DAILY 05/31/16 Bisacodyl Supp [Dulcolax Supp] 10 mg [place] DAILY PRN 08/22/18 Ketoconazole 1 applic TOP DAILY MDD Apply to affected areas 08/22/18 Loperamide [Imodium] 2 mg PO .AFTER EA LIQ STOOL PRN 08/22/18 Losartan Potassium 25 mg PO DAILY 08/22/18 Magnesium Hydroxide [Milk of Magnesia] 30 ml PO DAILY PRN 08/22/18 Melatonin 5 mg PO QPM 08/22/18 Nystatin 1 applic TOP BID 08/22/18 Omeprazole 40 mg PO DAILY 08/22/18 Quetiapine Fumarate 12.5 mg PO QPM 08/22/18 clonazePAM [Clonazepam] 0.5 mg PO BID 08/22/18 Acetaminophen [Tylenol] 650 mg PO TID 11/12/18 clonazePAM [Clonazepam] 0.5 mg PO DAILY PRN 11/12/18 - Allergies Allergies/Adverse Reactions: Allergies Allergy/AdvReac Type Severity Reaction Status Date / Time Sulfa (Sulfonamide Allergy Intermediate Nausea Verified 11/11/18 13:55 Antibiotics) felodipine AdvReac Intermediate Dizziness Verified 11/11/18 13:55 fenofibrate nanocrystallized AdvReac Intermediate Cramps Verified 11/11/18 13:55 * [From Tricor] fenofibrate,micronized * AdvReac Intermediate Cramps Verified 11/11/18 13:55 [From Tricor] losartan [Losartan] AdvReac Intermediate Respiratory Verified 11/11/18 13:55 metoprolol AdvReac Intermediate Respiratory Verified 11/11/18 13:55 minoxidil AdvReac Intermediate Emesis Verified 11/11/18 13:55 clonidine AdvReac Mild Cramps Verified 11/11/18 13:55 donepezil [Donepezil] AdvReac Unknown Unknown Verified 11/11/18 13:55 iodine AdvReac Unknown Unknown Verified 11/11/18 13:55 furosemide AdvReac Nausea Verified 11/11/18 13:55 haloperidol AdvReac Hallucinati Verified 11/11/18 13:55 ons hydrochlorothiazide AdvReac Emesis Verified 11/11/18 13:55 Review of Systems - Constitutional Constitutional: reports: Fatigue, Weakness, Weight loss (207.9 lbs (94.5kg, 29.9 BMI) 04/13/2019. 222.8 08/21/18. 218.08/14/18. 217.8 08/07/18. Previous range was 188-198 lbs from October to February 2018.) - Ears, Nose & Throat Ears, Nose & Throat: reports: Hearing loss. denies: Hearing aids, Dentures - Cardiovascular Cardiovascular: denies: Chest pain - Respiratory Respiratory: reports: Cough - Neurological Neurological: reports: Memory problems - Psychiatric Psychiatric: reports: Aggitation - Endocrine Endocrine: reports: Diabetes type 2 - Other Findings Other Findings: Limited ROS Physical Exam - Vital Signs Vital Signs: Vital Signs x48h Temp Pulse Pulse Pulse Pulse Resp BP 11/12/18 15:35 93 16 11/12/18 13:36 184/60 H 11/12/18 13:35 95 11/12/18 13:19 11/12/18 13:14 102 H 11/12/18 13:06 183/64 H 11/12/18 13:02 99 11/12/18 12:41 102 H 11/12/18 11:53 84 16 11/12/18 11:30 82 84 11/12/18 09:01 11/12/18 08:52 159/54 H 11/12/18 08:22 186/84 H 11/12/18 08:00 98.6 F 73 20 BP BP BP BP Pulse Ox 11/12/18 15:35 11/12/18 13:36 11/12/18 13:35 186/73 H 11/12/18 13:19 188/63 H 11/12/18 13:14 162/59 H 11/12/18 13:06 11/12/18 13:02 183/64 H 11/12/18 12:41 191/63 H 96 11/12/18 11:53 11/12/18 11:30 155/59 H 141/54 H 11/12/18 09:01 159/54 H 11/12/18 08:52 11/12/18 08:22 11/12/18 08:00 180/75 H 98 - Physical Exam General Appearance: positive: Lethargic Eyes Bilateral: positive: Normal inspection ENT: positive: No signs of dehydration Neck: positive: Trachea midline Respiratory: positive: Chest non-tender, No respiratory distress, Diminished throughout, Wheezes (expiratory) Abdomen: positive: Obese Skin: positive: Pallor Extremities: positive: No pedal edema Neurologic/Psychiatric: positive: Mood/affect nml, Disoriented to place, Disoriented to time Palliative Care - POLST Patient has POLST: Yes POLST Status: DNR, Comfort Measures Performance Status: ambulatory with walker previous to hospitalization respiration using accessory muscles increased upper extremity tremors chronic loose stools requires assistance with ADLs, transfers, toileting poor historian episodes of agitation in Memory Care unit - Palliative Care Discussion: Palliative care has had several conversations with spouse about goals of care, including at today's visit in the hospital. Spouse has realistic evaluation that patient "is not going to get substantially better" and that all that she's seen over these past few months is a general and steady decline. Her realistic expectation is that when he stabilizes, it will be at a lower baseline than he was previous to this hospitalization. She expresses some level of doubt and guilt about whether she should take him back home instead of [facility]. Discussed this at length, offering validation and reassurance that he is getting the appropriate level of care at the memory unit, and reiterated the importance of her also looking out for her own health. Spouse has herself not felt well for the past 7 months, with general GI upset and getting diagnostic testing. She is in process of following up with her PCP and possibly GI surgeon. What she wants to do is to avoid future hospitalizations for the patient, keeping him as comfortable as possible at [facility], and not pursuing any life- prolonging medical care. So current goal is to get him stabilized and discharge him back to [facility]. She agrees with starting him on comfort medication when he's back at [facility], consider liquid morphine on a routine and PRN basis, and have it available as a tool for staff in case of respiratory distress, as well as for agitation and anxiety. At [facility] he's currently on a small nightly dose of quetiapine (12.5mg), with routine and PRN clonazepam. He was on 1mg BID routine; the PCP cut it back to 0.5mg BID a few days ago. Palliative Care will create plan to wean him off that, along with other sedating meds, and use morphine. Plan is for Palliative Care to follow up with [facility] to initiate comfort medications and a plan to avoid future transfers to hospital. Spouse is supportive of transition to Hospice when criteria are met. Results - Lab Results Lab results reviewed: Yes Fish Bones: 11/12/18 04:55 11/12/18 04:55 Lab and Imaging Results: Lab Results x24hrs 11/12/18 11/12/18 11/12/18 Range/Units 04:55 04:55 04:55 WBC (4.8-10.8) x10^3/uL RBC (4.70-6.10) 10^6/uL Hgb (14.0-18.0) g/dL Hct (42.0-52.0) % MCV (80.0-94.0) fL MCH (27.0-31.0) pg MCHC (32.0-36.0) g/dL RDW (12.0-15.0) % Plt Count (130-450) 10^3/uL MPV (7.4-11.4) fL Neut # (Auto) (1.5-6.6) 10^3/uL Lymph # (Auto) (1.5-3.5) 10^3/uL [place] # (Auto) (0.0-1.0) 10^3/uL Eos # (Auto) (0.0-0.7) 10^3/uL Baso # (Auto) (0.0-0.1) 10^3/uL Absolute Nucleated RBC x10^3/uL Nucleated RBC % /100WBC Sodium 142 (135-145) mmol/L Potassium 4.2 (3.5-5.0) mmol/L Chloride 107 (101-111) mmol/L Carbon Dioxide 25 (21-32) mmol/L Anion Gap 10.0 (6-13) BUN 26 H (6-20) mg/dL Creatinine 1.6 H (0.6-1.2) mg/dL Estimated GFR (MDRD) 43 L (>89) Glucose 144 H (70-100) mg/dL Glycated Hemoglobin (4.6-6.2) % Estim Average Glucose (70-100) Uric Acid 6.5 (2.6-7.2) mg/dL Calcium 8.2 L (8.5-10.3) mg/dL Phosphorus 2.6 (2.5-4.6) mg/dL Iron 6 L (45-182) ug/dL TIBC 346 (250-450) ug/dL % Saturation 2 L (20-50) % Transferrin 247 (180-329) mg/dL Albumin 3.0 L (3.2-5.5) g/dL Triglycerides 104 ( - 149) mg/dL Cholesterol 121 ( - 199) mg/dL LDL Cholesterol, Calc 59 ( - 129) mg/dL VLDL Cholesterol 21 mg/dL HDL Cholesterol 41 L (60 - ) mg/dL LDL/HDL Ratio 1.4 (<3.6) Cholesterol/HDL Ratio 3.0 (<5.0) Urine Color Urine Clarity (CLEAR) Urine pH (5.0-7.5) PH Ur Specific [place] (1.002-1.030) Urine Protein (NEGATIVE) mg/dL Urine Glucose (UA) (NEGATIVE) mg/dL Urine Ketones (NEGATIVE) mg/dL Urine Occult Blood (NEGATIVE) Urine Nitrite (NEGATIVE) Urine Bilirubin (NEGATIVE) Urine Urobilinogen (NORMAL) E.U./dL Ur Leukocyte Esterase (NEGATIVE) Urine RBC (0-5) /HPF Urine WBC (0-3) /HPF Ur Squamous Epith Cells (<= Few) Urine Bacteria (None Seen) /HPF Urine Casts /LPF Ur Microscopic Review Urine Culture Comments Influenza A (Rapid) (Negative) Influenza B (Rapid) (Negative) 11/12/18 11/11/18 11/11/18 Range/Units 04:55 20:19 17:30 WBC 13.8 H (4.8-10.8) x10^3/uL RBC 4.37 L (4.70-6.10) 10^6/uL Hgb 11.5 L (14.0-18.0) g/dL Hct 35.9 L (42.0-52.0) % MCV 82.2 (80.0-94.0) fL MCH 26.3 L (27.0-31.0) pg MCHC 32.0 (32.0-36.0) g/dL RDW 17.0 H (12.0-15.0) % Plt Count 224 (130-450) 10^3/uL MPV 6.8 L (7.4-11.4) fL Neut # (Auto) 12.6 H (1.5-6.6) 10^3/uL Lymph # (Auto) 0.7 L (1.5-3.5) 10^3/uL [place] # (Auto) 0.5 (0.0-1.0) 10^3/uL Eos # (Auto) 0.0 (0.0-0.7) 10^3/uL Baso # (Auto) 0.0 (0.0-0.1) 10^3/uL Absolute Nucleated RBC 0.01 x10^3/uL Nucleated RBC % 0.0 /100WBC Sodium (135-145) mmol/L Potassium (3.5-5.0) mmol/L Chloride (101-111) mmol/L Carbon Dioxide (21-32) mmol/L Anion Gap (6-13) BUN (6-20) mg/dL Creatinine (0.6-1.2) mg/dL Estimated GFR (MDRD) (>89) Glucose (70-100) mg/dL Glycated Hemoglobin (4.6-6.2) % Estim Average Glucose (70-100) Uric Acid (2.6-7.2) mg/dL Calcium (8.5-10.3) mg/dL Phosphorus (2.5-4.6) mg/dL Iron (45-182) ug/dL TIBC (250-450) ug/dL % Saturation (20-50) % Transferrin (180-329) mg/dL Albumin (3.2-5.5) g/dL Triglycerides ( - 149) mg/dL Cholesterol ( - 199) mg/dL LDL Cholesterol, Calc ( - 129) mg/dL VLDL Cholesterol mg/dL HDL Cholesterol (60 - ) mg/dL LDL/HDL Ratio (<3.6) Cholesterol/HDL Ratio (<5.0) Urine Color YELLOW Urine Clarity CLEAR (CLEAR) Urine pH 5.5 (5.0-7.5) PH Ur Specific [place] >=1.030 H (1.002-1.030) Urine Protein >=300 (NEGATIVE) mg/dL Urine Glucose (UA) NEGATIVE (NEGATIVE) mg/dL Urine Ketones NEGATIVE (NEGATIVE) mg/dL Urine Occult Blood NEGATIVE (NEGATIVE) Urine Nitrite NEGATIVE (NEGATIVE) Urine Bilirubin NEGATIVE (NEGATIVE) Urine Urobilinogen 0.2 (NORMAL) (NORMAL) E.U./dL Ur Leukocyte Esterase NEGATIVE (NEGATIVE) Urine RBC None Seen (0-5) /HPF Urine WBC 0-3 (0-3) /HPF Ur Squamous Epith Cells NONE SEEN (<= Few) Urine Bacteria None Seen (None Seen) /HPF Urine Casts 3-5 Fine Granular /LPF Ur Microscopic Review INDICATED Urine Culture Comments NOT INDICATED Influenza A (Rapid) Negative (Negative) Influenza B (Rapid) Negative (Negative) 11/11/18 Range/Units 15:01 WBC (4.8-10.8) x10^3/uL RBC (4.70-6.10) 10^6/uL Hgb (14.0-18.0) g/dL Hct (42.0-52.0) % MCV (80.0-94.0) fL MCH (27.0-31.0) pg MCHC (32.0-36.0) g/dL RDW (12.0-15.0) % Plt Count (130-450) 10^3/uL MPV (7.4-11.4) fL Neut # (Auto) (1.5-6.6) 10^3/uL Lymph # (Auto) (1.5-3.5) 10^3/uL [place] # (Auto) (0.0-1.0) 10^3/uL Eos # (Auto) (0.0-0.7) 10^3/uL Baso # (Auto) (0.0-0.1) 10^3/uL Absolute Nucleated RBC x10^3/uL Nucleated RBC % /100WBC Sodium (135-145) mmol/L Potassium (3.5-5.0) mmol/L Chloride (101-111) mmol/L Carbon Dioxide (21-32) mmol/L Anion Gap (6-13) BUN (6-20) mg/dL Creatinine (0.6-1.2) mg/dL Estimated GFR (MDRD) (>89) Glucose (70-100) mg/dL Glycated Hemoglobin 6.3 H (4.6-6.2) % Estim Average Glucose 134 H (70-100) Uric Acid (2.6-7.2) mg/dL Calcium (8.5-10.3) mg/dL Phosphorus (2.5-4.6) mg/dL Iron (45-182) ug/dL TIBC (250-450) ug/dL % Saturation (20-50) % Transferrin (180-329) mg/dL Albumin (3.2-5.5) g/dL Triglycerides ( - 149) mg/dL Cholesterol ( - 199) mg/dL LDL Cholesterol, Calc ( - 129) mg/dL VLDL Cholesterol mg/dL HDL Cholesterol (60 - ) mg/dL LDL/HDL Ratio (<3.6) Cholesterol/HDL Ratio (<5.0) Urine Color Urine Clarity (CLEAR) Urine pH (5.0-7.5) PH Ur Specific [place] (1.002-1.030) Urine Protein (NEGATIVE) mg/dL Urine Glucose (UA) (NEGATIVE) mg/dL Urine Ketones (NEGATIVE) mg/dL Urine Occult Blood (NEGATIVE) Urine Nitrite (NEGATIVE) Urine Bilirubin (NEGATIVE) Urine Urobilinogen (NORMAL) E.U./dL Ur Leukocyte Esterase (NEGATIVE) Urine RBC (0-5) /HPF Urine WBC (0-3) /HPF Ur Squamous Epith Cells (<= Few) Urine Bacteria (None Seen) /HPF Urine Casts /LPF Ur Microscopic Review Urine Culture Comments Influenza A (Rapid) (Negative) Influenza B (Rapid) (Negative) Impression and Recommendations - Palliative Care Impression: 73-year-old male h/o CVA 2008 currently hospitalized for acute respiratory failure and COPD exacerbation, with sepsis secondary to suspected aspiration pneumonia. Once he's stabilized, family wants him on comfort medications when he is back at [facility], and wants to avoid future transfers to ED/hospital. Family supports transition to Hospice when medical criteria are met. Recommendations/Counseling Done: Vascular dementia with behaviors: Declining cognition and functionality, h/o behaviors, currently on quetiapine 12.5mg QPM. Anxiety: [facility], on orders from patient's PCP< decreased his routine clonazepam a few days ago from 1mg BID to 0.5mg BID routine. He also has a 0.5mg PRN dose. Pneumonia, aspiration: Currently on IV Unasyn for sepsis secondary to pneumonia. IT SEC[employer]ITY [employer]INE[employer] evaluation has been ordered in hospital. Pills are being crushed and mixed with applesauce. COPD, oxygen dependent: Chronic SOA, oxygen dependent, 1.5 to 2 liters. Continue Breo, Spiriva, Duonebs nebulizer PRN, and Proair/albuterol inhaler as needed. Advance care planning: POLST is DNR and comfort care. Goal after discharge from hospital is to remain at [facility], avoid future transfers to hospital, start comfort care with liquid morphine 20mg/mL, so 0.25mL morphine on a routine and PRN basis, for agitation and respiratory distress as needed. Trial weaning him off routine quetiapine and routine clonazepam. Time Spent: 30 minutes were spent with more than 50% of the time spent on counseling, education and coordination of care with nursing and hospitalist.
[2018-11-12] MEDS ORDERED: SODIUM CHLORIDE 0.9% 500 ML IV ONE (18:12)
[2018-11-12] MEDS: ATORVASTATIN 40 MG TABLET PO SCH ×2 (22:27→22:28)
[2018-11-12] MEDS: MEMANTINE 5 MG TABLET PO SCH (22:28)
[2018-11-12] MEDS: clonazePAM 0.5 MG TABLET PO PRN (22:30)
[2018-11-12] MEDS: INSULIN GLARGINE 300 UNIT/3 ML PEN SUBQ SCH (22:30)
[2018-11-12] MEDS: MONTELUKAST 10 MG TABLET PO SCH (22:47)
[2018-11-13] MEDS: OLANZapine ODT 5 MG TABLET TL PRN ×2 (00:08→21:08)
[2018-11-13] MEDS: AMPICILLIN/SULBACTAM 3 GM in SODIUM CHLORIDE 0.9% MINIBAG 100 ML IV SCH ×5 (00:27→23:48)
[2018-11-13] MEDS: SODIUM CHLORIDE FLUSH 0.9% 10 ML SYRINGE IVP SCH ×4 (00:27→23:49)
[2018-11-13] MEDS: hydrALAZINE INJ 20 MG/ML VIAL IVP PRN ×2 (04:06→23:57)
[2018-11-13] MEDS: SODIUM CHLORIDE FLUSH 0.9% 10 ML SYRINGE IVP PRN ×4 (04:08→23:58)
[2018-11-13 05:25] LABS: BASOPHILS # (AUTO) 0.1 10^3/uL (0.0-0.1); BASOPHILS % (AUTO) 0.4 %; EOSINOPHILS % (AUTO) 0.2 %; HGB - HEMOGLOBIN 13.1 g/dL (14.0-18.0); LYMPHOCYTES # (AUTO) 1.5 10^3/uL (1.5-3.5); LYMPHOCYTES % (AUTO) 10.1 %; MEAN CORPUSCULAR HEMOGLOBIN 26.4 pg (27.0-31.0); MEAN CORPUSCULAR HGB CONC 31.7 g/dL (32.0-36.0); MEAN CORPUSCULAR VOLUME 83.2 fL (80.0-94.0); MEAN PLATELET VOLUME 6.6 fL (7.4-11.4); MONOCYTES # (AUTO) 1.2 10^3/uL (0.0-1.0); MONOCYTES % (AUTO) 7.9 %; NEUTROPHILS # (AUTO) 12.5 10^3/uL (1.5-6.6); NEUTROPHILS % (AUTO) 81.4 %; PLT - PLATELET COUNT 263 10^3/uL (130-450); RED BLOOD COUNT 4.95 10^6/uL (4.70-6.10); RED CELL DISTRIBUTION WIDTH 16.9 % (12.0-15.0); WHITE BLOOD COUNT 15.3 x10^3/uL (4.8-10.8)
[2018-11-13 05:38] LABS: ALBUMIN 3.3 g/dL (3.2-5.5); CALCIUM 8.8 mg/dL (8.5-10.3); CREATININE 1.5 mg/dL (0.6-1.2)
[2018-11-13] MEDS: clonazePAM 0.5 MG TABLET PO PRN (08:48)
[2018-11-13] MEDS: amLODIPine 5 MG TABLET PO SCH ×2 (08:50→21:09)
[2018-11-13] MEDS: BISACODYL 10 MG SUPP PR SCH (08:50)
[2018-11-13] MEDS: FAMOTIDINE 20 MG TABLET PO SCH (08:50)
[2018-11-13] MEDS: TAMSULOSIN 0.4 MG CAPSULE PO SCH (08:50)
[2018-11-13] MEDS: INSULIN ASPART 300 UNIT/3 ML PEN SUBQ SCH ×4 (08:50→21:09)
[2018-11-13] MEDS: ASPIRIN CHEW 81 MG TABLET PO SCH (08:50)
[2018-11-13] MEDS: POLYETHYLENE GLYCOL 3350 17 GM PACKET PO SCH (08:51)
[2018-11-13] MEDS: MEMANTINE 5 MG TABLET PO SCH ×2 (08:51→21:08)
[2018-11-13] MEDS: guaiFENesin 600 MG TABLET PO SCH ×2 (08:51→21:08)
[2018-11-13] MEDS: ENOXAPARIN 40 MG/0.4 ML SYRINGE SUBQ SCH (08:51)
[2018-11-13] MEDS: IPRATROPIUM/ALBUTEROL 3 ML NEB INH SCH ×4 (09:12→19:58)
[2018-11-13] MEDS: FORMOTEROL FUMARATE NEB 20 MCG/2 ML INH SCH ×2 (10:16→19:58)
[2018-11-13] MEDS: BUDESONIDE 0.5 MG/2 ML NEB INH SCH ×2 (10:16→19:58)
--- NOTE | 2018-11-13 15:29 | PROVIDER PROGRESS NOTE ---
Assessment/Plan - Problem List (1) Aspiration pneumonia Assessment/Plan: Continue a 7-10 day course planned. (2) COPD exacerbation Assessment/Plan: Continue nebs, steroids and pulmonary toilet. (3) Dementia Assessment/Plan: Continue present meds and re-cuing. (4) CKD (chronic kidney disease) Assessment/Plan: Monitor BMP daily and avoid nephrotoxic agents. - Current Meds Current Meds: Current Medications Generic Name Dose Route Start Last Admin Trade Name Freq PRN Reason Stop Dose Admin Albuterol/Ipratropium 3 ml 11/12/18 11:00 11/13/18 15:09 Duoneb INH 3 ml RTQID VIRAJ Administration Amlodipine Besylate 5 mg 11/12/18 12:49 11/13/18 08:50 Norvasc PO 5 mg BID VIRAJ Administration Aspirin 81 mg 11/12/18 12:49 11/13/18 08:50 [facility] Aspirin PO 81 mg DAILY [facility]IRAJ Administration Atorvastatin Calcium 40 mg 11/11/18 21:00 11/12/18 22:28 Lipitor PO 40 mg QPM VIRAJ Administration Bisacodyl 10 mg 11/12/18 09:00 11/13/18 08:50 Dulcolax Supp [place] Not Given DAILY VIRAJ Budesonide 0.5 mg 11/11/18 19:00 11/13/18 10:16 Pulmicort INH 0.5 mg RTBID VIRAJ Administration Clonazepam 0.5 mg 11/12/18 12:49 11/13/18 08:48 Klonopin PO 0.5 mg DAILY PRN Administration Anxiety Clonidine HCl 1 patch 11/12/18 15:00 11/12/18 14:29 [id number] TOP 1 patch Q7D VIRAJ Administration Enoxaparin Sodium 40 mg 11/12/18 09:00 11/13/18 08:51 Lovenox SUBQ 40 mg DAILY VIRAJ Administration Famotidine 20 mg 11/12/18 12:49 11/13/18 08:50 Pepcid PO 20 mg DAILY VIRAJ Administration Formoterol Fumarate 20 mcg 11/12/18 19:00 11/13/18 10:16 Perforomist INH 20 mcg RTBID VIRAJ Administration Guaifenesin 1,200 mg 11/12/18 12:49 11/13/18 08:51 Mucinex PO 1,200 mg BID VIRAJ Administration Hydralazine HCl 10 mg 11/11/18 17:11 11/13/18 04:06 Apresoline Inj IVP 10 mg Q4HR PRN Administration SBP>160 Ampicillin Sodium/Sulbactam 100 mls @ 200 mls/hr 11/11/18 18:00 11/13/18 13:21 Sodium 3 gm/ Sodium Chloride IV Infused Q6HR VIRAJ Infusion Insulin Aspart 3 - 11 unit 11/11/18 17:00 11/13/18 12:01 Novolog SUBQ Not Given 0800,1200,1700,2100 [facility] Protocol Insulin Glargine 40 unit 11/11/18 21:00 11/12/18 22:30 Lantus Solostar SUBQ 40 unit QPM VIRAJ Administration Memantine 5 mg 11/12/18 12:49 11/13/18 08:51 Namenda PO 5 mg BID VIRAJ Administration Montelukast Sodium 10 mg 11/12/18 12:49 11/12/18 22:47 Singulair PO 10 mg QPM VIRAJ Administration Olanzapine 5 mg 11/11/18 17:59 11/13/18 00:08 Zyprexa Odt TL 5 mg QPM PRN Administration Agitation/insomnia Polyethylene Glycol 17 gm 11/12/18 09:00 11/13/18 08:51 Miralax PO Not Given DAILY [facility] Scopolamine HBr 1 patch 11/12/18 15:00 11/12/18 14:28 Transderm-Scop TOP 1 patch Q3D VIRAJ Administration Sodium Chloride 10 ml 11/11/18 16:16 11/13/18 06:24 Normal Saline Flush 0.9% IVP 10 ml PRN PRN Administration NEEDED PER PROVIDER ORDERS Sodium Chloride 10 ml 11/11/18 17:00 11/13/18 08:51 Normal Saline Flush 0.9% IVP 10 ml 0100,0900,1700 VIRAJ Administration Tamsulosin HCl 0.4 mg 11/12/18 09:00 11/13/18 08:50 Flomax PO 0.4 mg DAILY VIRAJ Administration - Lab Result Fish Bone Diagrams: 11/13/18 05:13 11/13/18 05:13 Subjective - Subjective Patient Reports: Feeling Better, Resting Comfortably Nursing Reports: Other (He had feces and vomit on himself and no PT was done due to this and fatigue.) Objective Vital Signs: Vital Signs - 24 hr 11/12/18 11/12/18 11/12/18 15:35 16:00 19:48 Temperature 36.4 C L Heart Rate 93 96 Heart Rate [ 100 Brachial] Respiratory 16 24 20 Rate Blood Pressure Blood Pressure [Left Brachial artery] Blood Pressure 151/67 H [Right Brachial artery] O2 Saturation 99 11/13/18 11/13/18 11/13/18 00:00 04:06 04:12 Temperature 36.7 C Heart Rate Heart Rate [ 102 H 90 87 Brachial] Respiratory 20 Rate Blood Pressure 184/70 H Blood Pressure 168/64 H [Left Brachial artery] Blood Pressure 184/70 H 188/80 H [Right Brachial artery] O2 Saturation 99 11/13/18 11/13/18 11/13/18 04:17 04:20 04:21 Temperature 36.6 C Heart Rate Heart Rate [ 89 Brachial] Respiratory 20 Rate Blood Pressure 116/79 Blood Pressure [Left Brachial artery] Blood Pressure 163/76 H [Right Brachial artery] O2 Saturation 11/13/18 11/13/18 11/13/18 04:22 04:34 04:51 Temperature Heart Rate Heart Rate [ 90 96 91 Brachial] Respiratory Rate Blood Pressure Blood Pressure [Left Brachial artery] Blood Pressure 175/63 H 183/80 H 162/89 H [Right Brachial artery] O2 Saturation 11/13/18 11/13/18 11/13/18 04:53 05:02 06:29 Temperature Heart Rate Heart Rate [ 92 Brachial] Respiratory 20 Rate Blood Pressure Blood Pressure [Left Brachial artery] Blood Pressure 116/79 125/97 H [Right Brachial artery] O2 Saturation 99 11/13/18 11/13/18 11/13/18 08:00 10:16 15:09 Temperature 36.0 C L Heart Rate 78 80 Heart Rate [ 90 Brachial] Respiratory 18 18 16 Rate Blood Pressure Blood Pressure 178/60 H [Left Brachial artery] Blood Pressure [Right Brachial artery] O2 Saturation 97 Oxygen O2 Source Nasal cannula Oxygen Flow Rate 4 I&O (Last 24 Hrs): Intake and Output Totals x24h 11/11/18 11/12/18 11/13/18 23:59 23:59 23:59 Intake Total 470 1075 740 Output Total 100 325 425 Balance 370 750 315 General: Alert HEENT: Atraumatic, Mucous membr. moist/pink Neck: Supple Neuro: Disoriented Cardiovascular: No murmurs Respiratory: No respiratory distress Abdomen: Soft Extremities: No edema - Results Results: Laboratory Results WBC 15.3 x10^3/uL (4.8-10.8) H 11/13/18 05:13 RBC 4.95 10^6/uL (4.70-6.10) 11/13/18 05:13 Hgb 13.1 g/dL (14.0-18.0) L 11/13/18 05:13 Hct 41.2 % (42.0-52.0) L 11/13/18 05:13 MCV 83.2 fL (80.0-94.0) 11/13/18 05:13 MCH 26.4 pg (27.0-31.0) L 11/13/18 05:13 MCHC 31.7 g/dL (32.0-36.0) L 11/13/18 05:13 RDW 16.9 % (12.0-15.0) H 11/13/18 05:13 Plt Count 263 10^3/uL (130-450) 11/13/18 05:13 MPV 6.6 fL (7.4-11.4) L 11/13/18 05:13 Neut # (Auto) 12.5 10^3/uL (1.5-6.6) H 11/13/18 05:13 Lymph # (Auto) 1.5 10^3/uL (1.5-3.5) 11/13/18 05:13 [place] # (Auto) 1.2 10^3/uL (0.0-1.0) H 11/13/18 05:13 Eos # (Auto) 0.0 10^3/uL (0.0-0.7) 11/13/18 05:13 Baso # (Auto) 0.1 10^3/uL (0.0-0.1) 11/13/18 05:13 Absolute Nucleated RBC 0.01 x10^3/uL 11/13/18 05:13 Nucleated RBC % 0.0 /100WBC 11/13/18 05:13 Sodium 146 mmol/L (135-145) H 11/13/18 05:13 Potassium 3.7 mmol/L (3.5-5.0) 11/13/18 05:13 Chloride 108 mmol/L (101-111) 11/13/18 05:13 Carbon Dioxide 27 mmol/L (21-32) 11/13/18 05:13 Anion Gap 11.0 (6-13) 11/13/18 05:13 BUN 35 mg/dL (6-20) H 11/13/18 05:13 Creatinine 1.5 mg/dL (0.6-1.2) H 11/13/18 05:13 Estimated GFR (MDRD) 46 (>89) L 11/13/18 05:13 Glucose 68 mg/dL (70-100) L 11/13/18 05:13 Glycated Hemoglobin 6.3 % (4.6-6.2) H 11/11/18 15:01 Estim Average Glucose 134 (70-100) H 11/11/18 15:01 Lactic Acid 2.0 mmol/L (0.5-2.2) 11/11/18 15:01 Uric Acid 6.5 mg/dL (2.6-7.2) 11/12/18 04:55 Calcium 8.8 mg/dL (8.5-10.3) 11/13/18 05:13 Phosphorus 3.0 mg/dL (2.5-4.6) 11/13/18 05:13 Iron 6 ug/dL (45-182) L 11/12/18 04:55 TIBC 346 ug/dL (250-450) 11/12/18 04:55 % Saturation 2 % (20-50) L 11/12/18 04:55 Transferrin 247 mg/dL (180-329) 11/12/18 04:55 Total Bilirubin 0.6 mg/dL (0.2-1.0) 11/11/18 15:01 AST 17 IU/L (10-42) 11/11/18 15:01 ALT 13 IU/L (10-60) 11/11/18 15:01 Alkaline Phosphatase 78 IU/L (42-121) 11/11/18 15:01 Total Protein 7.6 g/dL (6.7-8.2) 11/11/18 15:01 Albumin 3.3 g/dL (3.2-5.5) 11/13/18 05:13 Globulin 3.8 g/dL (2.1-4.2) 11/11/18 15:01 Albumin/Globulin Ratio 1.0 (1.0-2.2) 11/11/18 15:01 Triglycerides 104 mg/dL (-149) 11/12/18 04:55 Cholesterol 121 mg/dL (-199) 11/12/18 04:55 LDL Cholesterol, Calc 59 mg/dL (-129) 11/12/18 04:55 VLDL Cholesterol 21 mg/dL 11/12/18 04:55 HDL Cholesterol 41 mg/dL (60-) L 11/12/18 04:55 LDL/HDL Ratio 1.4 (<3.6) 11/12/18 04:55 Cholesterol/HDL Ratio 3.0 (<5.0) 11/12/18 04:55 Lipase 29 U/L (22-51) 11/11/18 15:01 Urine Color YELLOW 11/11/18 20:19 Urine Clarity CLEAR (CLEAR) 11/11/18 20:19 Urine pH 5.5 PH (5.0-7.5) 11/11/18 20:19 Ur Specific [place] >=1.030 (1.002-1.030) H 11/11/18 20:19 Urine Protein >=300 mg/dL (NEGATIVE) 11/11/18 20:19 Urine Glucose (UA) NEGATIVE mg/dL (NEGATIVE) 11/11/18 20:19 Urine Ketones NEGATIVE mg/dL (NEGATIVE) 11/11/18 20:19 Urine Occult Blood NEGATIVE (NEGATIVE) 11/11/18 20:19 Urine Nitrite NEGATIVE (NEGATIVE) 11/11/18 20:19 Urine Bilirubin NEGATIVE (NEGATIVE) 11/11/18 20:19 Urine Urobilinogen 0.2 (NORMAL) E.U./dL (NORMAL) 11/11/18 20:19 Ur Leukocyte Esterase NEGATIVE (NEGATIVE) 11/11/18 20:19 Urine RBC None Seen /HPF (0-5) 11/11/18 20:19 Urine WBC 0-3 /HPF (0-3) 11/11/18 20:19 Ur Squamous Epith Cells NONE SEEN (<= Few) 11/11/18 20:19 Urine Bacteria None Seen /HPF (None Seen) 11/11/18 20:19 Urine Casts 3-5 Fine Granular /LPF 11/11/18 20:19 Ur Microscopic Review INDICATED 11/11/18 20:19 Urine Culture Comments NOT INDICATED 11/11/18 20:19 Influenza A (Rapid) Negative (Negative) 11/11/18 17:30 Influenza B (Rapid) Negative (Negative) 11/11/18 17:30 Sepsis Event Note (H) - Evaluation Current Stage of Sepsis: Sepsis Possible source of Sepsis: positive: Pulmonary - Sepsis Criteria Sepsis Criteria: Recorded Heart Rate greater than 90 bpm, Respiratory: Increasing oxygen requirements, WBC count greater than 12,000 or less than 4000
[2018-11-13] MEDS: ACETAMINOPHEN 325 MG TABLET PO PRN (17:55)
[2018-11-13] MEDS ORDERED: clonazePAM 0.5 MG TABLET PO PRN (19:33)
[2018-11-13] MEDS: MONTELUKAST 10 MG TABLET PO SCH (21:08)
[2018-11-13] MEDS: INSULIN GLARGINE 300 UNIT/3 ML PEN SUBQ SCH (21:09)
[2018-11-13] MEDS: ATORVASTATIN 40 MG TABLET PO SCH (21:18)
[2018-11-14] MEDS: SODIUM CHLORIDE FLUSH 0.9% 10 ML SYRINGE IVP PRN ×2 (00:45→05:47)
[2018-11-14] MEDS ORDERED: LABETALOL 20 MG/4 ML SYRINGE IVP PRN (03:04)
[2018-11-14 05:04] LABS: BASOPHILS # (AUTO) 0.1 10^3/uL (0.0-0.1); BASOPHILS % (AUTO) 0.6 %; EOSINOPHILS # (AUTO) 0.1 10^3/uL (0.0-0.7); EOSINOPHILS % (AUTO) 0.5 %; HGB - HEMOGLOBIN 12.5 g/dL (14.0-18.0); LYMPHOCYTES # (AUTO) 1.4 10^3/uL (1.5-3.5); LYMPHOCYTES % (AUTO) 9.7 %; MEAN CORPUSCULAR HEMOGLOBIN 26.4 pg (27.0-31.0); MEAN CORPUSCULAR HGB CONC 31.8 g/dL (32.0-36.0); MEAN CORPUSCULAR VOLUME 82.9 fL (80.0-94.0); MEAN PLATELET VOLUME 6.7 fL (7.4-11.4); MONOCYTES # (AUTO) 1.2 10^3/uL (0.0-1.0); MONOCYTES % (AUTO) 8.9 %; NEUTROPHILS # (AUTO) 11.2 10^3/uL (1.5-6.6); NEUTROPHILS % (AUTO) 80.3 %; PLT - PLATELET COUNT 279 10^3/uL (130-450); RED BLOOD COUNT 4.75 10^6/uL (4.70-6.10); RED CELL DISTRIBUTION WIDTH 17.1 % (12.0-15.0); WHITE BLOOD COUNT 13.9 x10^3/uL (4.8-10.8)
[2018-11-14 05:16] LABS: ALBUMIN 3.2 g/dL (3.2-5.5); CALCIUM 8.5 mg/dL (8.5-10.3); CREATININE 1.5 mg/dL (0.6-1.2); PHOSPHORUS 2.6 mg/dL (2.5-4.6)
[2018-11-14] MEDS: AMPICILLIN/SULBACTAM 3 GM in SODIUM CHLORIDE 0.9% MINIBAG 100 ML IV SCH ×3 (05:47→18:09)
[2018-11-14] MEDS: BISACODYL 10 MG SUPP PR SCH (08:29)
[2018-11-14] MEDS: guaiFENesin 600 MG TABLET PO SCH ×2 (08:30→20:17)
[2018-11-14] MEDS: INSULIN ASPART 300 UNIT/3 ML PEN SUBQ SCH ×4 (08:30→20:19)
[2018-11-14] MEDS: amLODIPine 5 MG TABLET PO SCH ×2 (08:30→20:18)
[2018-11-14] MEDS: TAMSULOSIN 0.4 MG CAPSULE PO SCH (08:30)
[2018-11-14] MEDS: ASPIRIN CHEW 81 MG TABLET PO SCH (08:30)
[2018-11-14] MEDS: POLYETHYLENE GLYCOL 3350 17 GM PACKET PO SCH (08:31)
[2018-11-14] MEDS: ENOXAPARIN 40 MG/0.4 ML SYRINGE SUBQ SCH (08:31)
[2018-11-14] MEDS: FAMOTIDINE 20 MG TABLET PO SCH (08:31)
[2018-11-14] MEDS: MEMANTINE 5 MG TABLET PO SCH ×2 (08:31→20:18)
[2018-11-14] MEDS: SODIUM CHLORIDE FLUSH 0.9% 10 ML SYRINGE IVP SCH ×2 (08:31→18:10)
--- NOTE | 2018-11-14 08:56 | PROVIDER PROGRESS NOTE ---
Assessment/Plan - Problem List (1) Aspiration pneumonia Assessment/Plan: More SOB, after movement in bed. Will recheck a CXR. Continue antibiotics and pulmonary toilet. (2) COPD exacerbation Assessment/Plan: Continue nebs, steroids and pulmonary toilet. (3) Dementia Assessment/Plan: Continue his meds. (4) CKD (chronic kidney disease) Assessment/Plan: Stable. Monitor BMP daily. (5) Oropharyngeal dysphagia Assessment/Plan: Diet was adjusted for decreasing risk of aspiration, which he is tolerating. (6) HTN (hypertension) Qualifiers: Hypertension type: essential hypertension Qualified Code(s): I10 - Essential (primary) hypertension Assessment/Plan: BP has been poorly controlled for the past 2 days. He needed a dose of Labetolol overnight for sBP of 190. Will add Toprol XL to his Clonidine 0.2 weekly patch and Amlodipine (7) Hypernatremia Assessment/Plan: Possibly from salt load of antibiotics, since he is not on a diuretic or on a fluid restriction. Follow BMP daily. - Current Meds Current Meds: Current Medications Generic Name Dose Route Start Last Admin Trade Name Freq PRN Reason Stop Dose Admin Acetaminophen 650 mg 11/12/18 12:48 11/13/18 17:55 Tylenol PO 650 mg Q4HR PRN Administration Pain 1 to 4 Albuterol/Ipratropium 3 ml 11/12/18 11:00 11/13/18 19:58 Duoneb INH 3 ml RTQID VIRAJ Administration Amlodipine Besylate 5 mg 11/12/18 12:49 11/14/18 08:30 Norvasc PO 5 mg BID VIRAJ Administration Aspirin 81 mg 11/12/18 12:49 11/14/18 08:30 [facility] Aspirin PO 81 mg DAILY VIRAJ Administration Atorvastatin Calcium 40 mg 11/11/18 21:00 11/13/18 21:18 Lipitor PO 40 mg QPM VIRAJ Administration Bisacodyl 10 mg 11/12/18 09:00 11/14/18 08:29 Dulcolax Supp [place] 10 mg DAILY VIRAJ Administration Budesonide 0.5 mg 11/11/18 19:00 11/13/18 19:58 Pulmicort INH 0.5 mg RTBID VIRAJ Administration Clonazepam 0.5 mg 11/13/18 19:33 11/14/18 02:41 Klonopin PO 0.5 mg BID PRN Administration Anxiety Clonidine HCl 1 patch 11/12/18 15:00 11/12/18 14:29 [id number] TOP 1 patch Q7D VIRAJ Administration Enoxaparin Sodium 40 mg 11/12/18 09:00 11/14/18 08:31 Lovenox SUBQ 40 mg DAILY VIRAJ Administration Famotidine 20 mg 11/12/18 12:49 11/14/18 08:31 Pepcid PO 20 mg DAILY VIRAJ Administration Formoterol Fumarate 20 mcg 11/12/18 19:00 11/13/18 19:58 Perforomist INH 20 mcg RTBID [facility] Administration Guaifenesin 1,200 mg 11/12/18 12:49 11/14/18 08:30 Mucinex PO 1,200 mg BID VIRAJ Administration Hydralazine HCl 10 mg 11/11/18 17:11 11/13/18 23:57 Apresoline Inj IVP 10 mg Q4HR PRN Administration SBP>160 Ampicillin Sodium/Sulbactam 100 mls @ 200 mls/hr 11/11/18 18:00 11/14/18 06:20 Sodium 3 gm/ Sodium Chloride IV Infused Q6HR [facility] Infusion Insulin Aspart 3 - 11 unit 11/11/18 17:00 11/14/18 08:30 Novolog SUBQ Not Given 0800,1200,1700,2100 [facility] Protocol Insulin Glargine 40 unit 11/11/18 21:00 11/13/18 21:09 Lantus Solostar SUBQ 40 unit QPM VIRAJ Administration Labetalol HCl 10 mg 11/14/18 03:04 11/14/18 08:32 Trandate Syringe IVP 10 mg Q4H PRN Administration PER PHYSICIAN ORDER Memantine 5 mg 11/12/18 12:49 11/14/18 08:31 Namenda PO 5 mg BID VIRAJ Administration Montelukast Sodium 10 mg 11/12/18 12:49 11/13/18 21:08 Singulair PO 10 mg QPM VIRAJ Administration Olanzapine 5 mg 11/11/18 17:59 11/13/18 21:08 Zyprexa Odt TL 5 mg QPM PRN Administration Agitation/insomnia Polyethylene Glycol 17 gm 11/12/18 09:00 11/14/18 08:31 Miralax PO Not Given DAILY VIRAJ Scopolamine HBr 1 patch 11/12/18 15:00 11/12/18 14:28 Transderm-Scop TOP 1 patch Q3D VIRAJ Administration Sodium Chloride 10 ml 11/11/18 16:16 11/14/18 05:47 Normal Saline Flush 0.9% IVP 10 ml PRN PRN Administration NEEDED PER PROVIDER ORDERS Sodium Chloride 10 ml 11/11/18 17:00 11/14/18 08:31 Normal Saline Flush 0.9% IVP 10 ml 0100,0900,1700 VRIAJ Administration Tamsulosin HCl 0.4 mg 11/12/18 09:00 11/14/18 08:30 Flomax PO 0.4 mg DAILY VIRAJ Administration - Lab Result Fish Bone Diagrams: 11/14/18 04:10 11/14/18 04:10 Subjective - Subjective Patient Reports: Shortness of Breath Nursing Reports: Other (More SOB then yesterday, but it was after being moved by RN) Objective Vital Signs: Vital Signs - 24 hr 11/13/18 11/13/18 11/13/18 10:16 15:09 16:00 Temperature 36.6 C Heart Rate 78 80 Heart Rate [ 94 Brachial] Respiratory 18 16 20 Rate Blood Pressure Blood Pressure [Left Brachial artery] Blood Pressure 169/80 H [Right Brachial artery] O2 Saturation 100 11/13/18 11/13/18 11/13/18 20:00 20:35 23:59 Temperature 37.0 C 37.0 C Heart Rate 105 H Heart Rate [ 101 H 95 Brachial] Respiratory 18 24 20 Rate Blood Pressure Blood Pressure 186/65 H [Left Brachial artery] Blood Pressure 196/78 H [Right Brachial artery] O2 Saturation 96 96 11/14/18 11/14/18 11/14/18 00:00 00:03 00:08 Temperature Heart Rate Heart Rate [ 93 93 97 Brachial] Respiratory Rate Blood Pressure Blood Pressure 181/66 H 185/69 H 188/63 H [Left Brachial artery] Blood Pressure [Right Brachial artery] O2 Saturation 11/14/18 11/14/18 11/14/18 00:16 00:31 00:45 Temperature Heart Rate Heart Rate [ 96 99 99 Brachial] Respiratory Rate Blood Pressure Blood Pressure 170/58 H 178/85 H 185/67 H [Left Brachial artery] Blood Pressure [Right Brachial artery] O2 Saturation 0411/14/18 11/14/18 00:55 01:00 01:04 Temperature Heart Rate Heart Rate [ 100 98 101 H Brachial] Respiratory Rate Blood Pressure 141/72 H Blood Pressure 197/61 H 187/65 H 141/72 H [Left Brachial artery] Blood Pressure [Right Brachial artery] O2 Saturation 11/14/18 11/14/18 11/14/18 02:00 02:20 02:49 Temperature Heart Rate Heart Rate [ 101 H 99 101 H Brachial] Respiratory Rate Blood Pressure Blood Pressure 193/66 H 176/66 H 165/96 H [Left Brachial artery] Blood Pressure [Right Brachial artery] O2 Saturation 11/14/18 11/14/18 11/14/18 03:26 07:51 08:19 Temperature 36.8 C Heart Rate Heart Rate [ 97 100 97 Brachial] Respiratory 18 20 Rate Blood Pressure Blood Pressure 152/58 H 180/63 H 196/70 H [Left Brachial artery] Blood Pressure [Right Brachial artery] O2 Saturation 96 11/14/18 11/14/18 08:43 08:48 Temperature Heart Rate Heart Rate [ 78 81 Brachial] Respiratory Rate Blood Pressure Blood Pressure 158/53 H 155/57 H [Left Brachial artery] Blood Pressure [Right Brachial artery] O2 Saturation Oxygen O2 Source Nasal cannula Oxygen Flow Rate 4 I&O (Last 24 Hrs): Intake and Output Totals x24h 11/12/18 11/13/18 11/14/18 23:59 23:59 23:59 Intake Total 1075 1080 200 Output Total 325 425 Balance 750 655 200 General: Alert, Other (Fatigued and napping in afternoon) HEENT: Mucous membr. moist/pink Neck: Supple Neuro: Disoriented Cardiovascular: No murmurs Respiratory: Other (Diminished breath sounds) Abdomen: Soft, Other (Obese) Extremities: No edema - Results Results: Laboratory Results WBC 13.9 x10^3/uL (4.8-10.8) H 11/14/18 04:10 RBC 4.75 10^6/uL (4.70-6.10) 11/14/18 04:10 Hgb 12.5 g/dL (14.0-18.0) L 11/14/18 04:10 Hct 39.3 % (42.0-52.0) L 11/14/18 04:10 MCV 82.9 fL (80.0-94.0) 11/14/18 04:10 MCH 26.4 pg (27.0-31.0) L 11/14/18 04:10 MCHC 31.8 g/dL (32.0-36.0) L 11/14/18 04:10 RDW 17.1 % (12.0-15.0) H 11/14/18 04:10 Plt Count 279 10^3/uL (130-450) 11/14/18 04:10 MPV 6.7 fL (7.4-11.4) L 11/14/18 04:10 Neut # (Auto) 11.2 10^3/uL (1.5-6.6) H 11/14/18 04:10 Lymph # (Auto) 1.4 10^3/uL (1.5-3.5) L 11/14/18 04:10 [place] # (Auto) 1.2 10^3/uL (0.0-1.0) H 11/14/18 04:10 Eos # (Auto) 0.1 10^3/uL (0.0-0.7) 11/14/18 04:10 Baso # (Auto) 0.1 10^3/uL (0.0-0.1) 11/14/18 04:10 Absolute Nucleated RBC 0.01 x10^3/uL 11/14/18 04:10 Nucleated RBC % 0.0 /100WBC 11/14/18 04:10 Sodium 146 mmol/L (135-145) H 11/14/18 04:10 Potassium 3.7 mmol/L (3.5-5.0) 11/14/18 04:10 Chloride 111 mmol/L (101-111) 11/14/18 04:10 Carbon Dioxide 27 mmol/L (21-32) 11/14/18 04:10 Anion Gap 8.0 (6-13) 11/14/18 04:10 BUN 27 mg/dL (6-20) H 11/14/18 04:10 Creatinine 1.5 mg/dL (0.6-1.2) H 11/14/18 04:10 Estimated GFR (MDRD) 46 (>89) L 11/14/18 04:10 Glucose 119 mg/dL (70-100) H 11/14/18 04:10 Glycated Hemoglobin 6.3 % (4.6-6.2) H 11/11/18 15:01 Estim Average Glucose 134 (70-100) H 11/11/18 15:01 Lactic Acid 2.0 mmol/L (0.5-2.2) 11/11/18 15:01 Uric Acid 6.5 mg/dL (2.6-7.2) 11/12/18 04:55 Calcium 8.5 mg/dL (8.5-10.3) 11/14/18 04:10 Phosphorus 2.6 mg/dL (2.5-4.6) 11/14/18 04:10 Iron 6 ug/dL (45-182) L 11/12/18 04:55 TIBC 346 ug/dL (250-450) 11/12/18 04:55 % Saturation 2 % (20-50) L 11/12/18 04:55 Transferrin 247 mg/dL (180-329) 11/12/18 04:55 Total Bilirubin 0.6 mg/dL (0.2-1.0) 11/11/18 15:01 AST 17 IU/L (10-42) 11/11/18 15:01 ALT 13 IU/L (10-60) 11/11/18 15:01 Alkaline Phosphatase 78 IU/L (42-121) 11/11/18 15:01 Total Protein 7.6 g/dL (6.7-8.2) 11/11/18 15:01 Albumin 3.2 g/dL (3.2-5.5) 11/14/18 04:10 Globulin 3.8 g/dL (2.1-4.2) 11/11/18 15:01 Albumin/Globulin Ratio 1.0 (1.0-2.2) 11/11/18 15:01 Triglycerides 104 mg/dL (-149) 11/12/18 04:55 Cholesterol 121 mg/dL (-199) 11/12/18 04:55 LDL Cholesterol, Calc 59 mg/dL (-129) 11/12/18 04:55 VLDL Cholesterol 21 mg/dL 11/12/18 04:55 HDL Cholesterol 41 mg/dL (60-) L 11/12/18 04:55 LDL/HDL Ratio 1.4 (<3.6) 11/12/18 04:55 Cholesterol/HDL Ratio 3.0 (<5.0) 11/12/18 04:55 Lipase 29 U/L (22-51) 11/11/18 15:01 Urine Color YELLOW 11/11/18 20:19 Urine Clarity CLEAR (CLEAR) 11/11/18 20:19 Urine pH 5.5 PH (5.0-7.5) 11/11/18 20:19 Ur Specific [place] >=1.030 (1.002-1.030) H 11/11/18 20:19 Urine Protein >=300 mg/dL (NEGATIVE) 11/11/18 20:19 Urine Glucose (UA) NEGATIVE mg/dL (NEGATIVE) 11/11/18 20:19 Urine Ketones NEGATIVE mg/dL (NEGATIVE) 11/11/18 20:19 Urine Occult Blood NEGATIVE (NEGATIVE) 11/11/18 20:19 Urine Nitrite NEGATIVE (NEGATIVE) 11/11/18 20:19 Urine Bilirubin NEGATIVE (NEGATIVE) 11/11/18 20:19 Urine Urobilinogen 0.2 (NORMAL) E.U./dL (NORMAL) 11/11/18 20:19 Ur Leukocyte Esterase NEGATIVE (NEGATIVE) 11/11/18 20:19 Urine RBC None Seen /HPF (0-5) 11/11/18 20:19 Urine WBC 0-3 /HPF (0-3) 11/11/18 20:19 Ur Squamous Epith Cells NONE SEEN (<= Few) 11/11/18 20:19 Urine Bacteria None Seen /HPF (None Seen) 11/11/18 20:19 Urine Casts 3-5 Fine Granular /LPF 11/11/18 20:19 Ur Microscopic Review INDICATED 11/11/18 20:19 Urine Culture Comments NOT INDICATED 11/11/18 20:19 Influenza A (Rapid) Negative (Negative) 11/11/18 17:30 Influenza B (Rapid) Negative (Negative) 11/11/18 17:30 Sepsis Event Note (H) - Evaluation Current Stage of Sepsis: Sepsis Possible source of Sepsis: positive: Pulmonary - Sepsis Criteria Sepsis Criteria: Recorded Heart Rate greater than 90 bpm, Respiratory: Increasing oxygen requirements, WBC count greater than 12,000 or less than 4000
[2018-11-14] MEDS: FORMOTEROL FUMARATE NEB 20 MCG/2 ML INH SCH ×2 (09:50→19:44)
[2018-11-14] MEDS: IPRATROPIUM/ALBUTEROL 3 ML NEB INH SCH ×4 (09:50→19:44)
[2018-11-14] MEDS: BUDESONIDE 0.5 MG/2 ML NEB INH SCH ×2 (09:51→19:44)
[2018-11-14] MEDS ORDERED: SODIUM CHLORIDE 0.9% IV SCH (10:30)
[2018-11-14] MEDS ORDERED: CARBOPLATIN IV SCH (10:30)
[2018-11-14] MEDS ORDERED: raNITIdine INJ 50 MG in SODIUM CHLORIDE 0.9% 50 ML IV SCH (10:30)
[2018-11-14] MEDS: METOPROLOL SUCCINATE 25 MG TABLET PO SCH (10:42)
--- NOTE | 2018-11-14 12:57 | XRAY Report ---
Reason: Increase SOB, vomited yesterday, ?worse aspiration Procedure Date: 11/14/2018 Accession Number: [id number] / [id number] Procedure: XR - Chest 1 View X-Ray CPT Code: 56135 FULL RESULT: EXAM: CHEST RADIOGRAPHY EXAM DATE: 11/14/2018 11:33 AM. CLINICAL HISTORY: Increased shortness of breath, vomited yesterday, question worse aspiration. COMPARISON: CHEST 1 VIEW 11/11/2018 2:16 PM. TECHNIQUE: 1 view. FINDINGS: Examination limited by positioning including rotation and apical lordotic beam path as well as AP portable technique. Lungs/Pleura: Within the exam limitations, lung turcios are unchanged without lobar consolidation, sizable pneumothorax or pleural effusion. Mediastinum: The cardiomediastinal silhouette is likely unchanged accounting for difference in rotation. Other: ACDF hardware partially imaged. IMPRESSION: Limited examination with no definite interval change. Recommend formal PA and lateral radiographs. [facility]
[2018-11-14] MEDS: ATORVASTATIN 40 MG TABLET PO SCH (20:18)
[2018-11-14] MEDS: MONTELUKAST 10 MG TABLET PO SCH (20:18)
[2018-11-14] MEDS: INSULIN GLARGINE 300 UNIT/3 ML PEN SUBQ SCH (20:19)
[2018-11-15] MEDS: AMPICILLIN/SULBACTAM 3 GM in SODIUM CHLORIDE 0.9% MINIBAG 100 ML IV SCH ×4 (00:18→17:54)
[2018-11-15] MEDS: IPRATROPIUM/ALBUTEROL 3 ML NEB INH SCH ×4 (06:00→19:00)
[2018-11-15] MEDS: BUDESONIDE 0.5 MG/2 ML NEB INH SCH ×2 (06:00→16:41)
[2018-11-15] MEDS: FORMOTEROL FUMARATE NEB 20 MCG/2 ML INH SCH ×2 (07:00→16:40)
[2018-11-15] MEDS: BISACODYL 10 MG SUPP PR SCH (07:28)
[2018-11-15] MEDS: INSULIN ASPART 300 UNIT/3 ML PEN SUBQ SCH ×4 (08:23→21:10)
[2018-11-15] MEDS: ENOXAPARIN 40 MG/0.4 ML SYRINGE SUBQ SCH (08:24)
[2018-11-15] MEDS: FAMOTIDINE 20 MG TABLET PO SCH (08:24)
[2018-11-15] MEDS: guaiFENesin 600 MG TABLET PO SCH ×2 (08:24→21:10)
[2018-11-15] MEDS: METOPROLOL SUCCINATE 25 MG TABLET PO SCH (08:24)
[2018-11-15] MEDS: MEMANTINE 5 MG TABLET PO SCH ×2 (08:24→21:09)
[2018-11-15] MEDS: amLODIPine 5 MG TABLET PO SCH ×2 (08:24→21:09)
[2018-11-15] MEDS: ASPIRIN CHEW 81 MG TABLET PO SCH (08:24)
[2018-11-15] MEDS: TAMSULOSIN 0.4 MG CAPSULE PO SCH (08:24)
[2018-11-15] MEDS: ACETAMINOPHEN 325 MG TABLET PO PRN (08:24)
[2018-11-15] MEDS: SODIUM CHLORIDE FLUSH 0.9% 10 ML SYRINGE IVP SCH ×3 (08:25→17:36)
--- NOTE | 2018-11-15 10:58 | PROVIDER PROGRESS NOTE ---
Assessment/Plan - Problem List (1) Altered mental status Qualifiers: Altered mental status type: somnolence Qualified Code(s): R40.0 - Somnolence Assessment/Plan: Possibly from fever, worsened cough (and PNA), Scopalamine use, or worsened hypernatremia. Will start iv D5 for 1-2 days and monitor BMP daily. Will check troponin and BNP. Will check Lactic Acid level and re[peat a CXR. Will repeat blood cultures due to fever. Will stop Scopalamine. He cannot participate in PT today. (2) Aspiration pneumonia Assessment/Plan: Continue iv antibiotics. Will adjust depending on new CXR and lab results. Will possiibly order a swallow recheck with Barium and speech Therapist tomorrow (none here today). (3) COPD exacerbation Assessment/Plan: Continue nebs, mucinex, steroids. (4) Dementia Assessment/Plan: Continue Namenda. (5) CKD (chronic kidney disease) Assessment/Plan: Stable (6) Oropharyngeal dysphagia Assessment/Plan: Alterd diet . Poss repeat swallow eval for tomorrow. (7) HTN (hypertension) Qualifiers: Hypertension type: essential hypertension Qualified Code(s): I10 - Essential (primary) hypertension Assessment/Plan: Continue BP meds. (8) Hypernatremia Assessment/Plan: Due to increasing daily serum sodium and no worsening CHF on CXR, will give 2 days of free water hydration with D5. (9) DM type 2 (diabetes mellitus, type 2) Assessment/Plan: Continue carb-controlled diet and ss Insulin. - Current Meds Current Meds: Current Medications Generic Name Dose Route Start Last Admin Trade Name Judy PRN Reason Stop Dose Admin Acetaminophen 650 mg 11/12/18 12:48 11/15/18 08:24 Tylenol PO 650 mg Q4HR PRN Administration Pain 1 to 4 Albuterol/Ipratropium 3 ml 11/12/18 11:00 11/14/18 19:44 Duoneb INH 3 ml RTQID VIRAJ Administration Amlodipine Besylate 5 mg 11/12/18 12:49 11/15/18 08:24 Norvasc PO 5 mg BID VIRAJ Administration Aspirin 81 mg 11/12/18 12:49 11/15/18 08:24 [facility] Aspirin PO 81 mg DAILY VIRAJ Administration Atorvastatin Calcium 40 mg 11/11/18 21:00 11/14/18 20:18 Lipitor PO 40 mg QPM VIRAJ Administration Bisacodyl 10 mg 11/12/18 09:00 11/15/18 07:28 Dulcolax Supp [place] Not Given DAILY [facility] Budesonide 0.5 mg 11/11/18 19:00 11/14/18 19:44 Pulmicort INH 0.5 mg RTBID VIRAJ Administration Clonazepam 0.5 mg 11/13/18 19:33 11/14/18 02:41 Klonopin PO 0.5 mg BID PRN Administration Anxiety Clonidine HCl 1 patch 11/12/18 15:00 11/12/18 14:29 Pnftoewa-[id number]-3 TOP 1 patch Q7D [facility] Administration Enoxaparin Sodium 40 mg 11/12/18 09:00 11/15/18 08:24 Lovenox SUBQ 40 mg DAILY VIRAJ Administration Famotidine 20 mg 11/12/18 12:49 11/15/18 08:24 Pepcid PO 20 mg DAILY VIRAJ Administration Formoterol Fumarate 20 mcg 11/12/18 19:00 11/14/18 19:44 Perforomist INH 20 mcg RTBID [facility] Administration Guaifenesin 1,200 mg 11/12/18 12:49 11/15/18 08:24 Mucinex PO 1,200 mg BID VIRAJ Administration Hydralazine HCl 10 mg 11/11/18 17:11 11/13/18 23:57 Apresoline Inj IVP 10 mg Q4HR PRN Administration SBP>160 Ampicillin Sodium/Sulbactam 100 mls @ 200 mls/hr 11/11/18 18:00 11/15/18 07:02 Sodium 3 gm/ Sodium Chloride IV Infused Q6HR [facility] Infusion Insulin Aspart 3 - 11 unit 11/11/18 17:00 11/15/18 08:23 Novolog SUBQ Not Given 0800,1200,1700,2100 [facility] Protocol Insulin Glargine 40 unit 11/11/18 21:00 11/14/18 20:19 Lantus Solostar SUBQ 40 unit QPM VIRAJ Administration Labetalol HCl 10 mg 11/14/18 03:04 11/14/18 08:32 Trandate Syringe IVP 10 mg Q4H PRN Administration PER PHYSICIAN ORDER Memantine 5 mg 11/12/18 12:49 11/15/18 08:24 Namenda PO 5 mg BID VIRAJ Administration Metoprolol Succinate 25 mg 11/14/18 09:00 11/15/18 08:24 Toprol Xl PO 25 mg DAILY VIRAJ Administration Montelukast Sodium 10 mg 11/12/18 12:49 11/14/18 20:18 Singulair PO 10 mg QPM VIRAJ Administration Olanzapine 5 mg 11/11/18 17:59 11/13/18 21:08 Zyprexa Odt TL 5 mg QPM PRN Administration Agitation/insomnia Scopolamine HBr 1 patch 11/12/18 15:00 11/12/18 14:28 Transderm-Scop TOP 1 patch Q3D VIRAJ Administration Sodium Chloride 10 ml 11/11/18 16:16 11/14/18 05:47 Normal Saline Flush 0.9% IVP 10 ml PRN PRN Administration NEEDED PER PROVIDER ORDERS Sodium Chloride 10 ml 11/11/18 17:00 11/15/18 08:25 Normal Saline Flush 0.9% IVP 10 ml 0100,0900,1700 VIRAJ Administration Tamsulosin HCl 0.4 mg 11/12/18 09:00 11/15/18 08:24 Flomax PO 0.4 mg DAILY VIRAJ Administration - Lab Result Fish Bone Diagrams: 11/15/18 11:05 11/15/18 11:05 - Additional Planning My Orders: My Active Orders 11/15/18 BMP - BASIC METABOLIC PANEL [CHEM] Urgent BNP - B-NATRIURETIC PEPTIDE [IAI] Urgent CBC - COMP BLD CT W/AUTO DIFF [HEME] Urgent LACTIC ACID, VENOUS [CHEM] Urgent TROPONIN I [IAI] Urgent 11/15/18 10:50 Chest 1 View X-Ray [XR] Stat 11/16/18 05:00 BMP - BASIC METABOLIC PANEL [CHEM] DAILYLAB CBC - COMP BLD CT W/AUTO DIFF [HEME] DAILYLAB 11/17/18 05:00 BMP - BASIC METABOLIC PANEL [CHEM] DAILYLAB CBC - COMP BLD CT W/AUTO DIFF [HEME] DAILYLAB 11/18/18 05:00 BMP - BASIC METABOLIC PANEL [CHEM] DAILYLAB CBC - COMP BLD CT W/AUTO DIFF [HEME] DAILYLAB 11/19/18 05:00 BMP - BASIC METABOLIC PANEL [CHEM] DAILYLAB CBC - COMP BLD CT W/AUTO DIFF [HEME] DAILYLAB Subjective - Subjective Patient Reports: Feeling Better, Fatigue Nursing Reports: Other ( Spiked a fever. Able to sit OOB in chair, Yung lifted OOB.) Objective Vital Signs: Vital Signs - 24 hr 11/14/18 11/14/18 11/14/18 13:29 15:58 16:34 Temperature 37.2 C Heart Rate 82 90 Heart Rate [ 88 Brachial] Heart Rate [ Radial] Respiratory 26 H 20 26 H Rate Blood Pressure 178/69 H [Left Brachial artery] Blood Pressure [Left Radial artery] O2 Saturation 97 11/14/18 11/14/18 11/14/18 19:45 19:50 21:07 Temperature 36.7 C Heart Rate 89 Heart Rate [ 93 Brachial] Heart Rate [ Radial] Respiratory 32 H Rate Blood Pressure 182/89 H 168/65 H [Left Brachial artery] Blood Pressure [Left Radial artery] O2 Saturation 93 11/14/18 11/15/18 11/15/18 21:57 00:00 08:00 Temperature 37.7 C H Heart Rate Heart Rate [ 92 91 Brachial] Heart Rate [ 92 Radial] Respiratory 20 Rate Blood Pressure [Left Brachial artery] Blood Pressure 143/66 H 177/58 H 195/61 H [Left Radial artery] O2 Saturation 93 92 11/15/18 09:38 Temperature 36.8 C Heart Rate Heart Rate [ Brachial] Heart Rate [ 83 Radial] Respiratory 25 H Rate Blood Pressure 162/55 H [Left Brachial artery] Blood Pressure [Left Radial artery] O2 Saturation 92 Oxygen O2 Source Nasal cannula Oxygen Flow Rate 4 I&O (Last 24 Hrs): Intake and Output Totals x24h 11/13/18 11/14/18 11/15/18 23:59 23:59 23:59 Intake Total 1080 790 680 Output Total 425 Balance 655 790 680 General: Alert HEENT: Mucous membr. moist/pink Neck: Supple Neuro: Disoriented Cardiovascular: No murmurs Respiratory: No respiratory distress, Other (Diminished diffusely, no rales or rhonchi.) Abdomen: Soft, Other (Obese, non-tender.) Extremities: No edema - Results Results: Laboratory Results WBC 13.9 x10^3/uL (4.8-10.8) H 11/14/18 04:10 RBC 4.75 10^6/uL (4.70-6.10) 11/14/18 04:10 Hgb 12.5 g/dL (14.0-18.0) L 11/14/18 04:10 Hct 39.3 % (42.0-52.0) L 11/14/18 04:10 MCV 82.9 fL (80.0-94.0) 11/14/18 04:10 MCH 26.4 pg (27.0-31.0) L 11/14/18 04:10 MCHC 31.8 g/dL (32.0-36.0) L 11/14/18 04:10 RDW 17.1 % (12.0-15.0) H 11/14/18 04:10 Plt Count 279 10^3/uL (130-450) 11/14/18 04:10 MPV 6.7 fL (7.4-11.4) L 11/14/18 04:10 Neut # (Auto) 11.2 10^3/uL (1.5-6.6) H 11/14/18 04:10 Lymph # (Auto) 1.4 10^3/uL (1.5-3.5) L 11/14/18 04:10 [place] # (Auto) 1.2 10^3/uL (0.0-1.0) H 11/14/18 04:10 Eos # (Auto) 0.1 10^3/uL (0.0-0.7) 11/14/18 04:10 Baso # (Auto) 0.1 10^3/uL (0.0-0.1) 11/14/18 04:10 Absolute Nucleated RBC 0.01 x10^3/uL 11/14/18 04:10 Nucleated RBC % 0.0 /100WBC 11/14/18 04:10 Sodium 146 mmol/L (135-145) H 11/14/18 04:10 Potassium 3.7 mmol/L (3.5-5.0) 11/14/18 04:10 Chloride 111 mmol/L (101-111) 11/14/18 04:10 Carbon Dioxide 27 mmol/L (21-32) 11/14/18 04:10 Anion Gap 8.0 (6-13) 11/14/18 04:10 BUN 27 mg/dL (6-20) H 11/14/18 04:10 Creatinine 1.5 mg/dL (0.6-1.2) H 11/14/18 04:10 Estimated GFR (MDRD) 46 (>89) L 11/14/18 04:10 Glucose 119 mg/dL (70-100) H 11/14/18 04:10 Glycated Hemoglobin 6.3 % (4.6-6.2) H 11/11/18 15:01 Estim Average Glucose 134 (70-100) H 11/11/18 15:01 Lactic Acid 2.0 mmol/L (0.5-2.2) 11/11/18 15:01 Uric Acid 6.5 mg/dL (2.6-7.2) 11/12/18 04:55 Calcium 8.5 mg/dL (8.5-10.3) 11/14/18 04:10 Phosphorus 2.6 mg/dL (2.5-4.6) 11/14/18 04:10 Iron 6 ug/dL (45-182) L 11/12/18 04:55 TIBC 346 ug/dL (250-450) 11/12/18 04:55 % Saturation 2 % (20-50) L 11/12/18 04:55 Transferrin 247 mg/dL (180-329) 11/12/18 04:55 Total Bilirubin 0.6 mg/dL (0.2-1.0) 11/11/18 15:01 AST 17 IU/L (10-42) 11/11/18 15:01 ALT 13 IU/L (10-60) 11/11/18 15:01 Alkaline Phosphatase 78 IU/L (42-121) 11/11/18 15:01 Total Protein 7.6 g/dL (6.7-8.2) 11/11/18 15:01 Albumin 3.2 g/dL (3.2-5.5) 11/14/18 04:10 Globulin 3.8 g/dL (2.1-4.2) 11/11/18 15:01 Albumin/Globulin Ratio 1.0 (1.0-2.2) 11/11/18 15:01 Triglycerides 104 mg/dL (-149) 11/12/18 04:55 Cholesterol 121 mg/dL (-199) 11/12/18 04:55 LDL Cholesterol, Calc 59 mg/dL (-129) 11/12/18 04:55 VLDL Cholesterol 21 mg/dL 11/12/18 04:55 HDL Cholesterol 41 mg/dL (60-) L 11/12/18 04:55 LDL/HDL Ratio 1.4 (<3.6) 11/12/18 04:55 Cholesterol/HDL Ratio 3.0 (<5.0) 11/12/18 04:55 Lipase 29 U/L (22-51) 11/11/18 15:01 Urine Color YELLOW 11/11/18 20:19 Urine Clarity CLEAR (CLEAR) 11/11/18 20:19 Urine pH 5.5 PH (5.0-7.5) 11/11/18 20:19 Ur Specific [place] >=1.030 (1.002-1.030) H 11/11/18 20:19 Urine Protein >=300 mg/dL (NEGATIVE) 11/11/18 20:19 Urine Glucose (UA) NEGATIVE mg/dL (NEGATIVE) 11/11/18 20:19 Urine Ketones NEGATIVE mg/dL (NEGATIVE) 11/11/18 20:19 Urine Occult Blood NEGATIVE (NEGATIVE) 11/11/18 20:19 Urine Nitrite NEGATIVE (NEGATIVE) 11/11/18 20:19 Urine Bilirubin NEGATIVE (NEGATIVE) 11/11/18 20:19 Urine Urobilinogen 0.2 (NORMAL) E.U./dL (NORMAL) 11/11/18 20:19 Ur Leukocyte Esterase NEGATIVE (NEGATIVE) 11/11/18 20:19 Urine RBC None Seen /HPF (0-5) 11/11/18 20:19 Urine WBC 0-3 /HPF (0-3) 11/11/18 20:19 Ur Squamous Epith Cells NONE SEEN (<= Few) 11/11/18 20:19 Urine Bacteria None Seen /HPF (None Seen) 11/11/18 20:19 Urine Casts 3-5 Fine Granular /LPF 11/11/18 20:19 Ur Microscopic Review INDICATED 11/11/18 20:19 Urine Culture Comments NOT INDICATED 11/11/18 20:19 Influenza A (Rapid) Negative (Negative) 11/11/18 17:30 Influenza B (Rapid) Negative (Negative) 11/11/18 17:30 Sepsis Event Note (H) - Evaluation Current Stage of Sepsis: Sepsis Possible source of Sepsis: positive: Pulmonary - Sepsis Criteria Sepsis Criteria: Recorded Heart Rate greater than 90 bpm, Respiratory: Increasing oxygen requirements, WBC count greater than 12,000 or less than 4000
[2018-11-15 11:15] LABS: BASOPHILS # (AUTO) 0.1 10^3/uL (0.0-0.1); BASOPHILS % (AUTO) 0.6 %; EOSINOPHILS # (AUTO) 0.1 10^3/uL (0.0-0.7); EOSINOPHILS % (AUTO) 0.4 %; HGB - HEMOGLOBIN 12.6 g/dL (14.0-18.0); LYMPHOCYTES # (AUTO) 1.3 10^3/uL (1.5-3.5); LYMPHOCYTES % (AUTO) 9.7 %; MEAN CORPUSCULAR HEMOGLOBIN 26.3 pg (27.0-31.0); MEAN CORPUSCULAR HGB CONC 31.5 g/dL (32.0-36.0); MEAN CORPUSCULAR VOLUME 83.4 fL (80.0-94.0); MEAN PLATELET VOLUME 6.5 fL (7.4-11.4); MONOCYTES # (AUTO) 1.3 10^3/uL (0.0-1.0); MONOCYTES % (AUTO) 9.4 %; NEUTROPHILS # (AUTO) 10.8 10^3/uL (1.5-6.6); NEUTROPHILS % (AUTO) 79.9 %; PLT - PLATELET COUNT 266 10^3/uL (130-450); RED BLOOD COUNT 4.79 10^6/uL (4.70-6.10); RED CELL DISTRIBUTION WIDTH 16.6 % (12.0-15.0); WHITE BLOOD COUNT 13.5 x10^3/uL (4.8-10.8)
[2018-11-15 11:26] LABS: CALCIUM 8.4 mg/dL (8.5-10.3); CREATININE 1.5 mg/dL (0.6-1.2)
--- NOTE | 2018-11-15 11:39 | XRAY Report ---
Reason: CHF vs worsening pneumonia Procedure Date: 11/15/2018 Accession Number: [id number] / [id number] Procedure: XR - Chest 1 View X-Ray CPT Code: 77959 FULL RESULT: EXAM: CHEST RADIOGRAPHY EXAM DATE: 11/15/2018 11:09 AM. CLINICAL HISTORY: CHF versus worsening pneumonia. COMPARISON: CHEST 1 VIEW 11/14/2018 11:33 AM. TECHNIQUE: 1 view. FINDINGS: Examination is limited by portable AP technique and patient rotation. Lungs/Pleura: Redemonstration of soft tissue opacity at the right lower lateral thorax which given rotation is potentially due to overlapping external soft tissues. Otherwise, no ulnar consolidation is identified. No pleural effusion or pneumothorax. Mediastinum: Within exam limitations, the cardiomediastinal contour is normal. Other: None. IMPRESSION: Questionable airspace opacities at the right lateral lung are potentially artifactual. Recommend formal PA and lateral radiographs to clarify. RADIA
[2018-11-15] MEDS: DEXTROSE 5% 1,000 ML IV SCH (12:57)
[2018-11-15] MEDS: SODIUM CHLORIDE FLUSH 0.9% 10 ML SYRINGE IVP PRN (17:56)
[2018-11-15] MEDS: ATORVASTATIN 40 MG TABLET PO SCH (21:09)
[2018-11-15] MEDS: MONTELUKAST 10 MG TABLET PO SCH (21:10)
[2018-11-15] MEDS: INSULIN GLARGINE 300 UNIT/3 ML PEN SUBQ SCH (21:10)
[2018-11-16] MEDS: AMPICILLIN/SULBACTAM 3 GM in SODIUM CHLORIDE 0.9% MINIBAG 100 ML IV SCH ×4 (00:17→17:55)
[2018-11-16] MEDS: SODIUM CHLORIDE FLUSH 0.9% 10 ML SYRINGE IVP SCH ×3 (01:37→17:08)
[2018-11-16] MEDS: DEXTROSE 5% 1,000 ML IV SCH (04:15)
[2018-11-16 05:25] LABS: BASOPHILS # (AUTO) 0.1 10^3/uL (0.0-0.1); BASOPHILS % (AUTO) 0.5 %; EOSINOPHILS # (AUTO) 0.2 10^3/uL (0.0-0.7); EOSINOPHILS % (AUTO) 1.3 %; HGB - HEMOGLOBIN 12.1 g/dL (14.0-18.0); LYMPHOCYTES # (AUTO) 1.4 10^3/uL (1.5-3.5); LYMPHOCYTES % (AUTO) 11.4 %; MEAN CORPUSCULAR HEMOGLOBIN 26.7 pg (27.0-31.0); MEAN CORPUSCULAR HGB CONC 32.4 g/dL (32.0-36.0); MEAN CORPUSCULAR VOLUME 82.6 fL (80.0-94.0); MEAN PLATELET VOLUME 6.8 fL (7.4-11.4); MONOCYTES # (AUTO) 1.2 10^3/uL (0.0-1.0); MONOCYTES % (AUTO) 9.2 %; NEUTROPHILS # (AUTO) 9.7 10^3/uL (1.5-6.6); NEUTROPHILS % (AUTO) 77.6 %; PLT - PLATELET COUNT 237 10^3/uL (130-450); RED BLOOD COUNT 4.54 10^6/uL (4.70-6.10); RED CELL DISTRIBUTION WIDTH 16.8 % (12.0-15.0); WHITE BLOOD COUNT 12.5 x10^3/uL (4.8-10.8)
[2018-11-16 05:30] LABS: CALCIUM 8.2 mg/dL (8.5-10.3); CREATININE 1.5 mg/dL (0.6-1.2)
[2018-11-16] MEDS: FORMOTEROL FUMARATE NEB 20 MCG/2 ML INH SCH ×2 (08:38→19:57)
[2018-11-16] MEDS: IPRATROPIUM/ALBUTEROL 3 ML NEB INH SCH ×4 (08:38→19:57)
[2018-11-16] MEDS: METOPROLOL SUCCINATE 25 MG TABLET PO SCH (08:53)
[2018-11-16] MEDS: ENOXAPARIN 40 MG/0.4 ML SYRINGE SUBQ SCH (08:53)
[2018-11-16] MEDS: FAMOTIDINE 20 MG TABLET PO SCH (08:53)
[2018-11-16] MEDS: ASPIRIN CHEW 81 MG TABLET PO SCH (08:53)
[2018-11-16] MEDS: MEMANTINE 5 MG TABLET PO SCH ×3 (08:53→22:53)
[2018-11-16] MEDS: guaiFENesin 600 MG TABLET PO SCH ×3 (08:53→22:53)
[2018-11-16] MEDS: LOPERAMIDE 2 MG CAPSULE PO PRN (08:54)
[2018-11-16] MEDS: amLODIPine 5 MG TABLET PO SCH ×3 (08:54→22:53)
[2018-11-16] MEDS: TAMSULOSIN 0.4 MG CAPSULE PO SCH (08:54)
[2018-11-16] MEDS: BISACODYL 10 MG SUPP PR SCH (08:54)
[2018-11-16] MEDS: INSULIN ASPART 300 UNIT/3 ML PEN SUBQ SCH ×4 (08:55→21:06)
--- NOTE | 2018-11-16 09:19 | PROVIDER PROGRESS NOTE ---
Assessment/Plan - Problem List (1) Aspiration pneumonia Assessment/Plan: His clinic status has improved. Will continue antibiotics for a 7-10 day course. Will plan transition to po meds tomorrow and possible Dch tomorrow. (2) COPD exacerbation Assessment/Plan: Continue nebs, steroids, Mucinex. (3) Diarrhea Assessment/Plan: Will stop Dulcolax supp and other anti-constipation meds. Will check stool for C. diff, as he has been on antibiotics for several days. (4) Dementia Assessment/Plan: Since yesterday afternoon, he is the most alert that I have seen. He remains confused and only cooperates with females (it appears). Continue Namenda. (5) CKD (chronic kidney disease) Assessment/Plan: Abnormal but stable on current meds. (6) Oropharyngeal dysphagia Assessment/Plan: Continue current diet. (7) HTN (hypertension) Qualifiers: Hypertension type: essential hypertension Qualified Code(s): I10 - Essential (primary) hypertension Assessment/Plan: Continue present meds for BP control (8) Hypernatremia Assessment/Plan: Improved after D5 iv started yesterday. (9) DM type 2 (diabetes mellitus, type 2) Assessment/Plan: Continue carb controlled diet and ss Insulin coverage. (10) Altered mental status Qualifiers: Altered mental status type: somnolence Qualified Code(s): R40.0 - Somnolence Assessment/Plan: Resolved. This may have been from hypernatremia or from yesterday's fever. - Current Meds Current Meds: Current Medications Generic Name Dose Route Start Last Admin Trade Name Judy PRN Reason Stop Dose Admin Acetaminophen 650 mg 11/12/18 12:48 11/15/18 08:24 Tylenol PO 650 mg Q4HR PRN Administration Pain 1 to 4 Albuterol/Ipratropium 3 ml 11/12/18 11:00 11/16/18 08:38 Duoneb INH 3 ml RTQID VIRAJ Administration Amlodipine Besylate 5 mg 11/12/18 12:49 11/16/18 08:54 Norvasc PO 5 mg BID VIRAJ Administration Aspirin 81 mg 11/12/18 12:49 11/16/18 08:53 [facility] Aspirin PO 81 mg DAILY VIRAJ Administration Atorvastatin Calcium 40 mg 11/11/18 21:00 11/15/18 21:09 Lipitor PO 40 mg QPM VIRAJ Administration Clonazepam 0.5 mg 11/13/18 19:33 11/14/18 02:41 Klonopin PO 0.5 mg BID PRN Administration Anxiety Clonidine HCl 1 patch 11/12/18 15:00 11/12/18 14:29 Trnqhoof-[id number]-5 TOP 1 patch Q7D VIRAJ Administration Enoxaparin Sodium 40 mg 11/12/18 09:00 11/16/18 08:53 Lovenox SUBQ 40 mg DAILY VIRAJ Administration Famotidine 20 mg 11/12/18 12:49 11/16/18 08:53 Pepcid PO 20 mg DAILY VIRAJ Administration Formoterol Fumarate 20 mcg 11/12/18 19:00 11/16/18 08:38 Perforomist INH 20 mcg RTBID VIRAJ Administration Guaifenesin 600 mg 11/15/18 21:00 11/16/18 08:53 Mucinex PO 600 mg BID VIRAJ Administration Hydralazine HCl 10 mg 11/11/18 17:11 11/13/18 23:57 Apresoline Inj IVP 10 mg Q4HR PRN Administration SBP>160 Ampicillin Sodium/Sulbactam 100 mls @ 200 mls/hr 11/11/18 18:00 11/16/18 07:37 Sodium 3 gm/ Sodium Chloride IV Infused Q6HR VIRAJ Infusion Dextrose 1,000 mls @ 83.333 mls/hr 11/15/18 12:00 11/16/18 08:23 D5w IV 11/16/18 11:59 83 mls/hr .Q12H VIRAJ Infusion Insulin Aspart 3 - 11 unit 11/11/18 17:00 11/16/18 08:55 Novolog SUBQ Not Given 0800,1200,1700,2100 [facility] Protocol Insulin Glargine 40 unit 11/11/18 21:00 11/15/18 21:10 Lantus Solostar SUBQ 40 unit QPM VIRAJ Administration Labetalol HCl 10 mg 11/14/18 03:04 11/14/18 08:32 Trandate Syringe IVP 10 mg Q4H PRN Administration PER PHYSICIAN ORDER Loperamide HCl 2 mg 11/12/18 12:49 11/16/18 08:54 Imodium PO 2 mg .AFTER EA LIQ STOOL PRN Administration Diarrhea Memantine 5 mg 11/12/18 12:49 11/16/18 08:53 Namenda PO 5 mg BID VIRAJ Administration Metoprolol Succinate 25 mg 11/14/18 09:00 11/16/18 08:53 Toprol Xl PO 25 mg DAILY VIRAJ Administration Montelukast Sodium 10 mg 11/12/18 12:49 11/15/18 21:10 Singulair PO 10 mg QPM VIRAJ Administration Olanzapine 5 mg 11/11/18 17:59 11/13/18 21:08 Zyprexa Odt TL 5 mg QPM PRN Administration Agitation/insomnia Sodium Chloride 10 ml 11/11/18 16:16 11/15/18 17:56 Normal Saline Flush 0.9% IVP 10 ml PRN PRN Administration NEEDED PER PROVIDER ORDERS Sodium Chloride 10 ml 11/11/18 17:00 11/16/18 08:54 Normal Saline Flush 0.9% IVP Not Given 0100,0900,1700 VIRAJ Tamsulosin HCl 0.4 mg 11/12/18 09:00 11/16/18 08:54 Flomax PO 0.4 mg DAILY VIRAJ Administration - Lab Result Fish Bone Diagrams: 11/16/18 05:00 11/16/18 05:00 - Additional Planning My Orders: My Active Orders 11/15/18 12:00 Dextrose 5% [D5w] 1,000 ml IV 83.333 mls/hr 11/15/18 21:00 guaiFENesin [Mucinex] 600 mg PO BID 11/17/18 05:00 BMP - BASIC METABOLIC PANEL [CHEM] DAILYLAB CBC - COMP BLD CT W/AUTO DIFF [HEME] DAILYLAB 11/18/18 05:00 BMP - BASIC METABOLIC PANEL [CHEM] DAILYLAB CBC - COMP BLD CT W/AUTO DIFF [HEME] DAILYLAB 11/19/18 05:00 BMP - BASIC METABOLIC PANEL [CHEM] DAILYLAB CBC - COMP BLD CT W/AUTO DIFF [HEME] DAILYLAB Subjective - Subjective Patient Reports: Resting Comfortably Nursing Reports: Other (Loose BMs x3 for several days.) Objective Vital Signs: Vital Signs - 24 hr 11/15/18 11/15/18 11/15/18 09:38 13:02 16:00 Temperature 36.8 C 36.7 C Heart Rate 86 Heart Rate [ 83 86 Radial] Respiratory 25 H 26 H 22 Rate Blood Pressure 162/55 H [Left Brachial artery] Blood Pressure 165/74 H [Left Radial artery] O2 Saturation 92 99 11/15/18 11/15/18 11/16/18 16:51 17:25 00:00 Temperature 37.0 C Heart Rate 74 Heart Rate [ 90 83 Radial] Respiratory 22 16 Rate Blood Pressure 178/70 H [Left Brachial artery] Blood Pressure 155/80 H [Left Radial artery] O2 Saturation 95 11/16/18 08:39 Temperature Heart Rate 88 Heart Rate [ Radial] Respiratory 24 Rate Blood Pressure [Left Brachial artery] Blood Pressure [Left Radial artery] O2 Saturation Oxygen O2 Source Nasal cannula Oxygen Flow Rate 4 I&O (Last 24 Hrs): Intake and Output Totals x24h 11/14/18 11/15/18 11/16/18 23:59 23:59 23:59 Intake Total 790 1310 1709.933 Balance 790 1310 1709.933 General: Alert HEENT: Atraumatic, Mucous membr. moist/pink Neck: Supple, No JVD Neuro: Disoriented Cardiovascular: No murmurs Respiratory: No respiratory distress, Breath sounds nml Abdomen: Soft, Other (Obese with pannus) Extremities: No edema - Results Results: Laboratory Results WBC 12.5 x10^3/uL (4.8-10.8) H 11/16/18 05:00 RBC 4.54 10^6/uL (4.70-6.10) L 11/16/18 05:00 Hgb 12.1 g/dL (14.0-18.0) L 11/16/18 05:00 Hct 37.5 % (42.0-52.0) L 11/16/18 05:00 MCV 82.6 fL (80.0-94.0) 11/16/18 05:00 MCH 26.7 pg (27.0-31.0) L 11/16/18 05:00 MCHC 32.4 g/dL (32.0-36.0) 11/16/18 05:00 RDW 16.8 % (12.0-15.0) H 11/16/18 05:00 Plt Count 237 10^3/uL (130-450) 11/16/18 05:00 MPV 6.8 fL (7.4-11.4) L 11/16/18 05:00 Neut # (Auto) 9.7 10^3/uL (1.5-6.6) H 11/16/18 05:00 Lymph # (Auto) 1.4 10^3/uL (1.5-3.5) L 11/16/18 05:00 [place] # (Auto) 1.2 10^3/uL (0.0-1.0) H 11/16/18 05:00 Eos # (Auto) 0.2 10^3/uL (0.0-0.7) 11/16/18 05:00 Baso # (Auto) 0.1 10^3/uL (0.0-0.1) 11/16/18 05:00 Absolute Nucleated RBC 0.00 x10^3/uL 11/16/18 05:00 Nucleated RBC % 0.0 /100WBC 11/16/18 05:00 Sodium 145 mmol/L (135-145) 11/16/18 05:00 Potassium 3.7 mmol/L (3.5-5.0) 11/16/18 05:00 Chloride 109 mmol/L (101-111) 11/16/18 05:00 Carbon Dioxide 28 mmol/L (21-32) 11/16/18 05:00 Anion Gap 8.0 (6-13) 11/16/18 05:00 BUN 24 mg/dL (6-20) H 11/16/18 05:00 Creatinine 1.5 mg/dL (0.6-1.2) H 11/16/18 05:00 Estimated GFR (MDRD) 46 (>89) L 11/16/18 05:00 Glucose 151 mg/dL (70-100) H 11/16/18 05:00 Glycated Hemoglobin 6.3 % (4.6-6.2) H 11/11/18 15:01 Estim Average Glucose 134 (70-100) H 11/11/18 15:01 Lactic Acid 0.8 mmol/L (0.5-2.2) 11/15/18 11:05 Uric Acid 6.5 mg/dL (2.6-7.2) 11/12/18 04:55 Calcium 8.2 mg/dL (8.5-10.3) L 11/16/18 05:00 Phosphorus 2.6 mg/dL (2.5-4.6) 11/14/18 04:10 Iron 6 ug/dL (45-182) L 11/12/18 04:55 TIBC 346 ug/dL (250-450) 11/12/18 04:55 % Saturation 2 % (20-50) L 11/12/18 04:55 Transferrin 247 mg/dL (180-329) 11/12/18 04:55 Total Bilirubin 0.6 mg/dL (0.2-1.0) 11/11/18 15:01 AST 17 IU/L (10-42) 11/11/18 15:01 ALT 13 IU/L (10-60) 11/11/18 15:01 Alkaline Phosphatase 78 IU/L (42-121) 11/11/18 15:01 Troponin I 0.08 ng/mL (<0.49) 11/15/18 11:05 B-Natriuretic Peptide 36 pg/mL (5-100) 11/15/18 11:05 Total Protein 7.6 g/dL (6.7-8.2) 11/11/18 15:01 Albumin 3.2 g/dL (3.2-5.5) 11/14/18 04:10 Globulin 3.8 g/dL (2.1-4.2) 11/11/18 15:01 Albumin/Globulin Ratio 1.0 (1.0-2.2) 11/11/18 15:01 Triglycerides 104 mg/dL (-149) 11/12/18 04:55 Cholesterol 121 mg/dL (-199) 11/12/18 04:55 LDL Cholesterol, Calc 59 mg/dL (-129) 11/12/18 04:55 VLDL Cholesterol 21 mg/dL 11/12/18 04:55 HDL Cholesterol 41 mg/dL (60-) L 11/12/18 04:55 LDL/HDL Ratio 1.4 (<3.6) 11/12/18 04:55 Cholesterol/HDL Ratio 3.0 (<5.0) 11/12/18 04:55 Lipase 29 U/L (22-51) 11/11/18 15:01 Urine Color YELLOW 11/11/18 20:19 Urine Clarity CLEAR (CLEAR) 11/11/18 20:19 Urine pH 5.5 PH (5.0-7.5) 11/11/18 20:19 Ur Specific [place] >=1.030 (1.002-1.030) H 11/11/18 20:19 Urine Protein >=300 mg/dL (NEGATIVE) 11/11/18 20:19 Urine Glucose (UA) NEGATIVE mg/dL (NEGATIVE) 11/11/18 20:19 Urine Ketones NEGATIVE mg/dL (NEGATIVE) 11/11/18 20:19 Urine Occult Blood NEGATIVE (NEGATIVE) 11/11/18 20:19 Urine Nitrite NEGATIVE (NEGATIVE) 11/11/18 20:19 Urine Bilirubin NEGATIVE (NEGATIVE) 11/11/18 20:19 Urine Urobilinogen 0.2 (NORMAL) E.U./dL (NORMAL) 11/11/18 20:19 Ur Leukocyte Esterase NEGATIVE (NEGATIVE) 11/11/18 20:19 Urine RBC None Seen /HPF (0-5) 11/11/18 20:19 Urine WBC 0-3 /HPF (0-3) 11/11/18 20:19 Ur Squamous Epith Cells NONE SEEN (<= Few) 11/11/18 20:19 Urine Bacteria None Seen /HPF (None Seen) 11/11/18 20:19 Urine Casts 3-5 Fine Granular /LPF 11/11/18 20:19 Ur Microscopic Review INDICATED 11/11/18 20:19 Urine Culture Comments NOT INDICATED 11/11/18 20:19 Influenza A (Rapid) Negative (Negative) 11/11/18 17:30 Influenza B (Rapid) Negative (Negative) 11/11/18 17:30 Sepsis Event Note (H) - Evaluation Current Stage of Sepsis: Sepsis Possible source of Sepsis: positive: Pulmonary - Sepsis Criteria Sepsis Criteria: Recorded Heart Rate greater than 90 bpm, Respiratory: Increasing oxygen requirements, WBC count greater than 12,000 or less than 4000
[2018-11-16] MEDS: ACETAMINOPHEN 325 MG TABLET PO PRN (16:27)
[2018-11-16] MEDS ORDERED: SODIUM CHLORIDE 0.9% 500 ML IV ONE (17:59)
[2018-11-16] MEDS: FERROUS GLUCONATE 324 MG TABLET PO SCH (18:00)
[2018-11-16] MEDS ORDERED: SODIUM CHLORIDE 0.9% 500 ML IV PRN (19:00)
[2018-11-16] MEDS: CHOLESTYRAMINE 4 GM PACKET PO SCH (21:55)
[2018-11-16] MEDS: ATORVASTATIN 40 MG TABLET PO SCH ×2 (22:02→22:52)
[2018-11-16] MEDS: MONTELUKAST 10 MG TABLET PO SCH ×2 (22:02→22:53)
[2018-11-16] MEDS: INSULIN GLARGINE 300 UNIT/3 ML PEN SUBQ SCH (22:45)
[2018-11-17] MEDS: AMPICILLIN/SULBACTAM 3 GM in SODIUM CHLORIDE 0.9% MINIBAG 100 ML IV SCH ×2 (00:28→05:30)
[2018-11-17] MEDS: SODIUM CHLORIDE FLUSH 0.9% 10 ML SYRINGE IVP SCH ×2 (01:44→08:16)
[2018-11-17 06:03] LABS: BASOPHILS # (AUTO) 0.1 10^3/uL (0.0-0.1); BASOPHILS % (AUTO) 0.6 %; EOSINOPHILS # (AUTO) 0.4 10^3/uL (0.0-0.7); EOSINOPHILS % (AUTO) 3.1 %; LYMPHOCYTES # (AUTO) 1.5 10^3/uL (1.5-3.5); LYMPHOCYTES % (AUTO) 11.3 %; MEAN CORPUSCULAR HEMOGLOBIN 26.6 pg (27.0-31.0); MEAN CORPUSCULAR HGB CONC 31.4 g/dL (32.0-36.0); MEAN CORPUSCULAR VOLUME 84.5 fL (80.0-94.0); MEAN PLATELET VOLUME 7.2 fL (7.4-11.4); MONOCYTES % (AUTO) 7.8 %; NEUTROPHILS # (AUTO) 10.1 10^3/uL (1.5-6.6); NEUTROPHILS % (AUTO) 77.2 %; PLT - PLATELET COUNT 258 10^3/uL (130-450); RED BLOOD COUNT 4.51 10^6/uL (4.70-6.10); RED CELL DISTRIBUTION WIDTH 16.2 % (12.0-15.0)
[2018-11-17 06:22] LABS: CALCIUM 8.2 mg/dL (8.5-10.3); CREATININE 1.5 mg/dL (0.6-1.2)
[2018-11-17] MEDS: FORMOTEROL FUMARATE NEB 20 MCG/2 ML INH SCH (07:51)
[2018-11-17] MEDS: IPRATROPIUM/ALBUTEROL 3 ML NEB INH SCH ×2 (07:51→11:40)
[2018-11-17 08:09] VITALS: BP 152/63
[2018-11-17] MEDS: ASPIRIN CHEW 81 MG TABLET PO SCH (08:15)
[2018-11-17] MEDS: LOPERAMIDE 2 MG CAPSULE PO PRN (08:15)
[2018-11-17] MEDS: FAMOTIDINE 20 MG TABLET PO SCH (08:15)
[2018-11-17] MEDS: FERROUS GLUCONATE 324 MG TABLET PO SCH (08:15)
[2018-11-17] MEDS: METOPROLOL SUCCINATE 25 MG TABLET PO SCH (08:15)
[2018-11-17] MEDS: CHOLESTYRAMINE 4 GM PACKET PO SCH (08:15)
[2018-11-17] MEDS: TAMSULOSIN 0.4 MG CAPSULE PO SCH (08:15)
[2018-11-17] MEDS: guaiFENesin 600 MG TABLET PO SCH (08:15)
[2018-11-17] MEDS: ENOXAPARIN 40 MG/0.4 ML SYRINGE SUBQ SCH (08:15)
[2018-11-17] MEDS: amLODIPine 5 MG TABLET PO SCH (08:15)
[2018-11-17] MEDS: MEMANTINE 5 MG TABLET PO SCH (08:15)
[2018-11-17] MEDS: INSULIN ASPART 300 UNIT/3 ML PEN SUBQ SCH (08:15)
--- NOTE | 2018-11-17 11:26 | Discharge Plan ---
"Discharge Plan for SNF / [facility] - Discharge Plan And Transition Orders Disposition: 03 SNF DC/Xfer Condition: Stable Allergies and Adverse Reactions: Allergies Allergy/AdvReac Type Severity Reaction Status Date / Time Sulfa (Sulfonamide Allergy Intermediate Nausea Verified 11/11/18 13:55 Antibiotics) felodipine AdvReac Intermediate Dizziness Verified 11/11/18 13:55 fenofibrate nanocrystallized AdvReac Intermediate Cramps Verified 11/11/18 13:55 * [From Tricor] fenofibrate,micronized * AdvReac Intermediate Cramps Verified 11/11/18 13:55 [From Tricor] losartan [Losartan] AdvReac Intermediate Respiratory Verified 11/11/18 13:55 metoprolol AdvReac Intermediate Respiratory Verified 11/11/18 13:55 minoxidil AdvReac Intermediate Emesis Verified 11/11/18 13:55 clonidine AdvReac Mild Cramps Verified 11/11/18 13:55 donepezil [Donepezil] AdvReac Unknown Unknown Verified 11/11/18 13:55 iodine AdvReac Unknown Unknown Verified 11/11/18 13:55 furosemide AdvReac Nausea Verified 11/11/18 13:55 haloperidol AdvReac Hallucinati Verified 11/11/18 13:55 ons hydrochlorothiazide AdvReac Emesis Verified 11/11/18 13:55 - SNF / RESIDENTIAL Transition Orders Admit to (Facility): [facility] Discharge Diagnosis: 1) Aspiration pneumonia 2) COPD with exacerbation 3) Dementia 4) DM, on Insulin 5) CKD, stage 3 6) Oropharyngeal dysphagia, on an altered diet 7) Hx of Stroke 8) HTN 9) Diarrhea, intermittent 10) Iron deficiency anemia 11) Code Status: DNR Medicare Certification Statement: I certify that Post Hospital custodial care is medically necessary on a continuing basis for any of the conditions for which she/he is receiving care during hospitalization. Notify PCP of admission and forward orders to primary provider for signature. Weight on admission and: Weekly Call PCP immediately if weight increases by: 5 kg Other Notification Orders: Call PCP immediately if patient develops dyspnea, chest pain/tightness or edema. House Bowel Program: Yes Additional Bowel Program Orders: If no BM after 2 days, nurse may give M.O.M. 30ml PO PRN and/or ducolax Supp 1 AK and/or DEACON 250mg P.O., and/or senna 1-2 tabs PO. On day 3 nurse may give repeat above order until residents constipation is resolved. Annual Influenza Vaccine (between Apr 07 and November 04): Yes Two-step PPD per [facility] [phone] or approved exception documents: Yes Treatments & Other Orders: PT daily or as tolerated (if he cooperates) Oxygen Orders: 3L O2 per n.c. continuously Medication Orders: PLEASE REFER TO THE DISCHARGE MEDICATION LIST. Insulin Orders?: Yes - Medications New Prescriptions: Amoxicillin/Potassium Clav [Amox Tr-K Clv 875-125 mg Tab] 1 each PO BID #6 tablet cloNIDine 0.2 MG PATCH [Zjlptyuh-Wnh-9] 1 patch TOP Q7D #4 patch Ferrous Gluconate [Iron] 240 mg PO DAILY #30 tablet guaiFENesin [Mucinex] 600 mg PO BID #8 tablet Insulin Aspart [NovoLOG] 3 - 11 unit SUBQ 0800,1200,1700,2100 #2 pen Insulin Glargine [Lantus Solostar] 40 unit SUBQ QPM #4 pen Memantine [Namenda] 5 mg PO BID #60 tablet Metoprolol Succinate [Toprol Xl] 25 mg PO DAILY #30 tablet Montelukast [Singulair] 10 mg PO QPM #30 tablet - Diet Type: Diabetic diet Texture: Puree Liquids: Honey thick May have monthly special meal: Yes - Therapies | Activity Rehabilitation Potential: Maintain present ADL Functional Activity: Activity as Tolerated Additional Instructions: Finish treatment for pneumonia. F/U with his PCP in 5-10 days. Insulin Orders - SNF Basal | Correction | Custom Orders: Diagnosis: Diabetes Initiate hypo and hyperglycemia protocols for BG <70 and BG >375. May check BG PRN for signs/symptoms of dysglycemia. Frequency of BG checks: [AC/Meal/HS] Basal Insulin: [X] Lantus 100 units / ml inject subq as follows: 40 U sq qpm [] Other: [] Correction Insulin: - Select the type of insulin below [Choose: Novolog ]100 units /ml insulin inject subq per orders indicate below [] LOW DOSE [] MODERATE DOSE [] MODERATE/HIGH DOSE [X] HIGH DOSE GB UNITS GB UNITS GB UNITS GB UNITS 61-140 0 UNITS 61-140 0 UNITS 61-140 0 UNITS 61-140 0 UNITS 141-175 1 UNITS 141-175 1 UNITS 141-175 2 UNITS 141-175 3 UNITS 176-225 2 UNITS 176-225 3 UNITS 176-225 4 UNITS 176-225 5 UNITS 226-275 3 UNITS 226-275 5 UNITS 226-275 6 UNITS 226-275 7 UNITS 276-325 4 UNITS 276-325 7 UNITS 276-325 8 UNITS 276-325 9 UNITS 326-375 5 UNITS 326-375 9 UNITS 326-375 10 UNITS 326-375 11 UNITS >375 CONTACT MD >375 CONTACT MD >375 CONTACT MD >375 CONTACT MD"
--- NOTE | 2018-11-21 19:07 | DISCHARGE SUMMARY ---
Physician: Sabrina Escudero MD DATE OF ADMISSION: 11/11/2018 DATE OF DISCHARGE: 11/17/2018 HISTORY OF PRESENT ILLNESS: This is a 73-year-old white male with a past history of COPD, stroke 10 years ago with residual right-sided weakness, vascular dementia, history of sundowning with prior Seroquel need, history of hypertension, hyperlipidemia, depression, insulin-dependent diabetes, CKD stage 3, who presented to the emergency room with difficulty breathing, a cough for several days to a week, and new fevers. His oxygen saturation was in the mid 80% range, and he required supplemental oxygen. His workup in the emergency room found a pulmonary infiltrate, and he was admitted for management of respiratory distress and probable aspiration pneumonia. HOSPITAL COURSE AND DISCHARGE DIAGNOSES 1. Aspiration pneumonia. The x-ray interpretation stated normal cardiac size, nodular opacities in both lower lung zones, right greater than left. He was started on empiric IV antibiotic, defervesced, and white count improved. He was unable to make a sputum sample for obtaining a culture. The day before discharge, he was transitioned to oral Augmentin to complete a 10-day course. 2. Chronic obstructive pulmonary disease with exacerbation. The patient was on nebulizers, steroids were tapered while here, he improved with Mucinex, and was started on new Singulair at bedtime. At discharge, the Mucinex and Singulair were continued, and he was advised to resume his pre-hospitalization inhalers. 3. Dementia. The patient was started on new Namenda while here. 4. Diabetes, on insulin. The patient was on a carb-controlled diet and had sliding scale insulin coverage for fasting glucose checks. He had presented with a medication list, stating he was on 80 units of Lantus every night, and at the time of discharge, this was down to 40 units of Lantus nightly plus sliding scale coverage on a "High" scale using Regular insulin. After the patient arrived back to [facility], an RN called here stating that they "do not do sliding scale insulin treatments at [facility]." This had not been communicated to me by Social Work, who had arranged the discharge location. I reviewed what insulin dose he used here and the amount of glucose that was needed for correction. His glucose values here ran 66-150, and he used approximately 3 units of Aspart for correction. Therefore, I recommended a change from Lantus 40 units every night to Lantus 45 units every night, and no sliding scale coverage if [facility] does not perform sliding scale insulin dosing and fingerstick glucose checks. 5. Chronic kidney disease, stage 3. The patient's creatinine was between 1.3- 1.5 throughout this admission. 6. Oropharyngeal dysphagia, the patient had swallowing evaluation done and was noted to have aspiration risk. Therefore, he was on an altered diet while here, and it was advised to continue at discharge: Texture is pureed, liquid is honey thick, and he has diabetic restrictions. 7. History of stroke. The patient has right-sided hemiparesis, and favors the left side. He does minimal activity with physical therapy, but is able to support himself upright when he is out of bed in a chair. 8. Hypertension. This was difficult to control throughout this admission, and he required the addition of both a Clonidine patch and new Metoprolol to his Norvasc for blood pressure control. 9. Diarrhea, intermittent. He developed diarrhea while here, which was sent for C. difficile testing, and that was negative. The dietitian noted that he had come here on Cholestyramine and that it was stopped on admission; this may have been keeping his stools from being loose. Therefore, Cholestyramine was resumed on the day before discharge and to continue after discharge. 10. Iron-deficiency anemia. The patient's hemoglobin on presentation was 12.9, this dropped to 11.5 in the middle of his stay, and he underwent serum iron testing showing low iron stores. He was started on ferrous gluconate (this will also help bind his loose stools). ALLERGIES 1. SULFA. 2. FELODIPINE. 3. TRICOR. 4. LOSARTAN. 5. MINOXIDIL. 6. CLONIDINE is listed, but he is on it without problems. 7. METOPROLOL is listed, but he is able to take it. 8. DONEPEZIL. 9. IODINE. 10. FUROSEMIDE. 11. HALOPERIDOL. 12. HCTZ. MEDICATIONS AT DISCHARGE 1. Lantus insulin 45 units subcutaneous every night. 2. Tylenol 650 mg t.i.d. scheduled. 3. ProAir inhaler q.4 hours p.r.n. 4. Norvasc 5 mg daily. 5. Aspirin 81 mg daily. 6. Dulcolax suppository p.r.n. constipation. 7. Clonazepam 0.5 mg b.i.d. and an additional dose daily p.r.n. anxiety. 8. Breo Ellipta inhaler 1 puff daily. 9. DuoNeb inhaler q.4 hours p.r.n. wheezing. 10. Topical ketoconazole cream p.r.n. 11. Imodium p.r.n. 12. Milk of magnesia p.r.n. 13. Melatonin 5 mg every night. 14. Nystatin topical cream p.r.n. 15. Omeprazole 40 mg daily. 16. Seroquel 12.5 mg every evening. 17. Flomax 0.4 mg daily. 18. Spiriva 18 mcg p.o. daily. 19. Cholestyramine 4 grams p.o. b.i.d. 20. Clonidine patch 0.2 mg topically weekly. 21. Iron gluconate 240 mg p.o. daily. 22. Mucinex 600 mg b.i.d. 23. Namenda 5 mg b.i.d. 24. Metoprolol succinate 25 mg daily. 25. Singulair 10 mg every night 26. Zofran p.r.n. 27. Augmentin 875/125 p.o. b.i.d. for 3 more days. LABORATORIES AND IMAGING: Reviewed and summarized above. CONDITION AT DISCHARGE: Stable. PHYSICAL EXAMINATION VITAL SIGNS: Blood pressure 150/60, heart rate 72, afebrile, oxygen saturation 95% on 3 liters nasal cannula. HEENT: Unremarkable. NECK: Without JVD or carotid bruits. CHEST: Clear. No wheezing or rales. HEART: Sounds distant. No murmur. ABDOMEN: Obese, positive bowel sounds, nontender. EXTREMITIES: No clubbing, cyanosis, edema. NEUROLOGIC: Confused, disoriented, has right-sided weakness. FOLLOWUP: He was advised to see his PCP in 5-10 days for hospital followup. CODE STATUS: DNR. Time required to complete this entire discharge, chart review, orders to the [facility] living [facility], and dictation: 60 minutes. TD: 11/21/2018 16:17 [facility]
== END 2018-11-17 13:05 | DRG 871 ==
LOC: EDUNIT# → ED 13:53 → MS3 16:16
PROVIDERS: ADMIT Family Medicine; ATTEND Internal Medicine
DX: A41.9 Sepsis, unspecified organism (principal); J18.9 Pneumonia, unspecified organism; R09.02 Hypoxemia; F03.90 Unspecified dementia, unspecified severity, without behavioral disturbance, psychotic disturbance, mood disturbance, and anxiety; M54.5 Low back pain; J69.0 Pneumonitis due to inhalation of food and vomit; J96.01 Acute respiratory failure with hypoxia; I69.351 Hemiplegia and hemiparesis following cerebral infarction affecting right dominant side; F01.51 Vascular dementia, unspecified severity, with behavioral disturbance; E87.0 Hyperosmolality and hypernatremia; J43.9 Emphysema, unspecified; E11.22 Type 2 diabetes mellitus with diabetic chronic kidney disease; I12.9 Hypertensive chronic kidney disease with stage 1 through stage 4 chronic kidney disease, or unspecified chronic kidney disease; N18.3 Chronic kidney disease, stage 3 (moderate); Z79.4 Long term (current) use of insulin; E78.5 Hyperlipidemia, unspecified; F32.9 Major depressive disorder, single episode, unspecified; I69.391 Dysphagia following cerebral infarction; R13.12 Dysphagia, oropharyngeal phase; R19.7 Diarrhea, unspecified; D50.9 Iron deficiency anemia, unspecified; Z88.2 Allergy status to sulfonamides; Z91.041 Radiographic dye allergy status; Z66 Do not resuscitate; I16.0 Hypertensive urgency; E11.649 Type 2 diabetes mellitus with hypoglycemia without coma; E66.9 Obesity, unspecified; Z68.29 Body mass index [BMI] 29.0-29.9, adult; R41.82 Altered mental status, unspecified; F41.9 Anxiety disorder, unspecified; Z99.81 Dependence on supplemental oxygen
CPT/HCPCS: 36415; 71045; 80048; 80053; 80061; 80069; 81001; 83036; 83540; 83605; 83690; 83880; 84466; 84484; 84550; 85025; 87275; 87276; 92526; 94640; 96361; 96365; 97161; 97530; 99232; 99283; 99284; A9270; J1650; J1815; J3490; J7626; 81003; 83721; 87070; 87086; 87205

== ENCOUNTER 2018-11-17 13:10 | Outpatient (CLI) | payer MEDICARE, OTHER, MEDICAID | END 2018-11-17 13:11 | disposition home or self-care (01) | LOC: EMS 13:10 | PROVIDERS: ATTEND Surgery | DX: F03.90 Unspecified dementia, unspecified severity, without behavioral disturbance, psychotic disturbance, mood disturbance, and anxiety (principal); J18.9 Pneumonia, unspecified organism; J44.1 Chronic obstructive pulmonary disease with (acute) exacerbation | CPT/HCPCS: A0425; A0428 ==

== ENCOUNTER 2018-11-19 14:25 | Outpatient (CLI) | payer MEDICARE, OTHER, MEDICAID ==
--- NOTE | 2018-11-19 19:37 | CONSULTATION NOTE ---
Palliative Care Follow Up - Referral Referring Provider: Dr Fletcher Time of Visit: 11/19/2018. 14:25 - 15:10 Referral setting: Assisted living ([facility]) Referral Reason: Pneumonia follow up - Information Sources Records reviewed: RN notes reviewed, Previous records reviewed History/Review of Systems obtained from: Patient, Family, Nursing Exam limitations: Clinical condition (Dementia) - History of Present Illness Update Brief HPI Update: 73-year-old male h/o CVA 2008, has vascular dementia with behaviors and oxygen- dependent COPD. He was recently hospitalized 11/11/18 -11/17/18 for acute respiratory failure and COPD exacerbation, with sepsis secondary to suspected aspiration pneumonia. He is now back at [facility] memory care. 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 Patient has been in the ED in March 2018, and August 2017, and hospitalized just last week, in November. Patient visit today takes place in the common room of his memory care/assisted living residence. He is alert, quiet, mildly confused, speaking in full sentences. Has a rattly cough, breath sounds are closer to baseline without the gurgly quality he had in hospital. His lung sounds via auscultation are very diminished, no breath sounds. Oxygen sats 90-92% at 3L NC. Previous oxygen usage was 1.5-2L. His gait remains unsteady, he fell on Monday, the day after his hospital discharge, around 2pm. He vaguely remembers being hospitalized, is mostly confused about it. Does admit to fatigue. He has told the staff members that he wants to "go home." Hospitalist placed him on dysphagia pured honey thickened diet due to possible oral pharyngeal dysphasia related to his progressive vascular type dementia. BGs prior to hospitalization: 79-120, with one 155 reading. Since hospitalization: 71 and 144. His current Lantus is 45u QPM, ordered by hospitalist, since facility doesn't do sliding scale. He was previously at 85 units. Social History - Living Situation Living arrangement: Assisted living ([facility] memory care unit) Living Situation: With caregiver(s) Support System: He and his , Skye, are both [place]. The patient was born in [place] and is of [place] background. They moved to [facility] [place], bought an old, fixer-upper house on 11 acres in [place]. Skye still lives on that same land in [place], though they've sold part of the land off. They raised two sons who were 2.5 and 5 years old when they moved here. The elder son lives in [place], the younger in [place]. 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 Medications/Allergies - Medications Home Medications: Ambulatory Orders Medication Instructions Recorded Confirmed Albuterol Sulfate [Proair Hfa 2 puffs INH Q4H PRN 05/31/16 11/21/18 Inhaler] Aspirin 81 mg PO DAILY 05/31/16 11/21/18 Fluticasone/Vilanterol [Breo 1 puffs INH DAILY 05/31/16 11/21/18 Ellipta 200-25 Mcg INH] Insulin Glargine [Lantus Solostar] 45 unit SUBQ QPM 05/31/16 11/21/18 Ipratropium/Albuterol Sulfate 3 ml INH Q4H PRN 05/31/16 11/21/18 [Iprat-Albut 0.5-3(2.5) mg/3 ml] Tamsulosin [Flomax] 0.4 mg PO DAILY 05/31/16 11/21/18 Tiotropium [place] [Spiriva] 18 mcg PO DAILY 05/31/16 11/21/18 amLODIPine [Norvasc] 5 mg PO DAILY 05/31/16 11/21/18 Cholestyramine/Aspartame 4 gm PO BID #60 packet 12/24/16 11/21/18 [Cholestyramine Light Packet] Bisacodyl Supp [Dulcolax Supp] 10 mg AK DAILY PRN 08/22/18 11/21/18 Ketoconazole 1 applic TOP DAILY MDD Apply to 08/22/18 11/21/18 affected areas Loperamide [Imodium] 2 mg PO .AFTER EA LIQ STOOL PRN 08/22/18 11/12/18 Magnesium Hydroxide [Milk of 30 ml PO DAILY PRN 08/22/18 11/21/18 Magnesia] Melatonin 5 mg PO QPM 08/22/18 11/21/18 Nystatin 1 applic TOP BID 08/22/18 11/21/18 Omeprazole 40 mg PO DAILY 08/22/18 11/21/18 Ondansetron Odt [Zofran Odt] 4 mg TL Q6H PRN #10 tablet 08/22/18 11/21/18 Quetiapine Fumarate 12.5 mg PO QPM 08/22/18 11/21/18 clonazePAM [Clonazepam] 0.5 mg PO BID 08/22/18 11/21/18 Acetaminophen [Tylenol] 650 mg PO TID 11/12/18 11/21/18 clonazePAM [Clonazepam] 0.5 mg PO DAILY PRN 11/12/18 11/21/18 Amoxicillin/Potassium Clav [Amox 1 each PO BID #6 tablet MDD for 3 11/17/18 11/21/18 Tr-K Clv 875-125 mg Tab] days only Ferrous Gluconate [Iron] 240 mg PO DAILY #30 tablet 11/17/18 11/21/18 Memantine [Namenda] 5 mg PO BID #60 tablet 11/17/18 11/21/18 Metoprolol Succinate [Toprol Xl] 25 mg PO DAILY #30 tablet 11/17/18 11/21/18 Montelukast [Singulair] 10 mg PO QPM #30 tablet 11/17/18 11/21/18 cloNIDine 0.2 MG PATCH 1 patch TOP Q7D #4 patch 11/17/18 11/21/18 [Iuopycog-Uhe-6] guaiFENesin [Mucinex] 600 mg PO BID #8 tablet MDD For 4 11/17/18 11/21/18 days only - Allergies Allergies/Adverse Reactions: Allergies Allergy/AdvReac Type Severity Reaction Status Date / Time Sulfa (Sulfonamide Allergy Intermediate Nausea Verified 11/11/18 13:55 Antibiotics) felodipine AdvReac Intermediate Dizziness Verified 11/11/18 13:55 fenofibrate nanocrystallized AdvReac Intermediate Cramps Verified 11/11/18 13:55 * [From Tricor] fenofibrate,micronized * AdvReac Intermediate Cramps Verified 11/11/18 13:55 [From Tricor] losartan [Losartan] AdvReac Intermediate Respiratory Verified 11/11/18 13:55 metoprolol AdvReac Intermediate Respiratory Verified 11/11/18 13:55 minoxidil AdvReac Intermediate Emesis Verified 11/11/18 13:55 clonidine AdvReac Mild Cramps Verified 11/11/18 13:55 donepezil [Donepezil] AdvReac Unknown Unknown Verified 11/11/18 13:55 iodine AdvReac Unknown Unknown Verified 11/11/18 13:55 furosemide AdvReac Nausea Verified 11/11/18 13:55 haloperidol AdvReac Hallucinati Verified 11/11/18 13:55 ons hydrochlorothiazide AdvReac Emesis Verified 11/11/18 13:55 Review of Systems - Constitutional Constitutional: reports: Fatigue, Weakness, Weight loss (207.9 lbs (94.5kg, 29.9 BMI) 11/11/2018. 222.8 lbs 08/21/18. 218 lbs 08/14/18. 217.8 lbs 08/07/18. Previous range was 188-198 lbs from October to February 2018.) - Eyes Eyes: reports: Vision loss - Ears, Nose & Throat Ears, Nose & Throat: reports: Hearing loss. denies: Hearing aids, Nasal congestion, Postnasal drainage - Cardiovascular Cardiovascular: reports: Exertional dyspnea, Decr. exercise tolerance - Respiratory Respiratory: reports: Cough, Sputum production, SOB with exertion - Gastrointestinal Gastrointestinal: reports: Diarrhea (chronic loose stools). denies: Constipation - Genitourinary Genitourinary: reports: Frequency - Musculoskeletal Musculoskeletal: reports: Stiffness, Joint pain (in back), Assistive devices (wheelchair), Transfer issues - Integumentary Integumentary: reports: Other (eczema, seborrheic dermatitis) - Neurological Neurological: reports: Memory problems, Pre-existing deficit, Abnormal gait - Psychiatric Psychiatric: reports: Anxiety, Aggitation, Behavior disturbances - Endocrine Endocrine: reports: Diabetes type 2 - Hematologic/Lymphatic Hematologic/Lymphatic: reports: Recurrent infections (aspiration pneumonia) Physical Exam - Vital Signs Temperature: 96.2 F Pulse Rate: 75 O2 Saturation: 95 (3L O2 NC) Blood Pressure: 138/69 - Physical Exam General Appearance: positive: No acute distress, Alert, Other (quieter, less agitated than previously) Eyes Bilateral: positive: Normal inspection ENT: positive: No signs of dehydration Neck: positive: Trachea midline Cardiovascular: positive: Regular rate & rhythm, No murmur, No gallop Respiratory: positive: Diminished throughout (no air sounds, likely worsened by body habitus). negative: Wheezes, Rales, Rhonchi Abdomen: positive: Obese Skin: positive: Dryness Extremities: positive: No pedal edema Neurologic/Psychiatric: positive: Disoriented to time, Flat affect Palliative Care - POLST Patient has POLST: Yes POLST Status: DNR, Comfort Measures Tiredness/Fatigue: Moderate (4-6) Anorexia: Moderate (4-6) Constipation: No Performance Status: mostly in wheelchair; previously used walker now on continuous oxygen chronic loose stools requires assistance with ADLs, transfers, toileting poor historian episodes of agitation - Palliative Care Discussion: Palliative care has continued the conversation with spouse about goals of care. We had previously discussed her wish for no further transfer to hospital. including at today's visit in the hospital. Spouse has realistic evaluation that patient "is not going to get substantially better" and that all that she's seen over these past few months is a general and steady decline. Her realistic expectation is that when he stabilizes, it will be at a lower baseline than he was previous to this hospitalization. She expresses some level of doubt and guilt about whether she should take him back home instead of [facility]. Discussed this at length, offering validation and reassurance that he is getting the appropriate level of care at the memory unit, and reiterated the importance of her also looking out for her own health. Spouse has herself not felt well for the past 7 months, with general GI upset and getting diagnostic testing. She is in process of following up with her PCP and possibly GI surgeon. What she wants to do is to avoid future hospitalizations for the patient, keeping him as comfortable as possible at [facility], and not pursuing any life- prolonging medical care. So current goal is to get him stabilized and discharge him back to [facility]. She agrees with starting him on comfort medication when he's back at [facility], consider liquid morphine on a routine and PRN basis, and have it available as a tool for staff in case of respiratory distress, as well as for agitation and anxiety. At [facility] he's currently on a small nightly dose of quetiapine (12.5mg), with routine and PRN clonazepam. He was on 1mg BID routine; the PCP cut it back to 0.5mg BID a few days ago. Palliative Care will create plan to wean him off that, along with other sedating meds, and use morphine. Plan is for Palliative Care to follow up with [facility] to initiate comfort medications and a plan to avoid future transfers to hospital. Spouse is supportive of transition to Hospice when criteria are met. Impression and Recommendations - Palliative Care Impression: 73-year-old male h/o CVA 2008, has vascular dementia with behaviors and oxygen- dependent COPD. He was recently hospitalized 11/11/18 -11/17/18 for acute respiratory failure and COPD exacerbation, with sepsis secondary to suspected aspiration pneumonia. Family wants him on comfort medications now that he is back at [facility] memory care, and wants to avoid future transfers to ED/hospital. Family supports transition to Hospice when medical criteria are met. Recommendations/Counseling Done: Vascular dementia with behaviors: Declining cognition and functionality, significantly worsened since hospitalization. He's quieter since returning to [facility]. Continue quetiapine 12.5mg QPM. Anxiety: Has clonazepam 0.5mg BID routine, start a trial GDR next week, and use morphine for SOA or agitation. He also has a 0.5mg PRN dose, not used this month so far. Pneumonia, aspiration: Resolving. He was treated with IV Unasyn in hospital for sepsis secondary to pneumonia. Now on Augmentin for 3 days. Residual rattly cough, breath sounds much improved. COPD, oxygen dependent: Chronic SOA, oxygen dependent, formerly 1.5 to 2 liters, now 3L. Continue Breo, Spiriva, Duonebs nebulizer PRN, and Proair/albuterol inhaler as needed. DM II: BGs stable, ranging 79-144. His current Lantus is 45units (previously 85 units) QPM, ordered by hospitalist, since facility doesn't do sliding scale. He's had recent weight loss. 207.9 lbs vs 222.8 lbs in August. Previous range was 188-198 lbs from October to February 2018. Advance care planning: POLST is DNR and comfort care. Spouse wants patient to remain at [facility], avoid future transfers to hospital, start comfort care with liquid morphine for SOA and agitation. Morphine sulfate stephanie 20mg/mL: 0.25mL (5mg) PO/buccally Q4h PRN for agitation and respiratory distress as needed. Will trial weaning him off routine quetiapine and routine clonazepam, starting with clonazepam. Follow up visit next week. Time Spent: 45 minutes were spent with more than 50% of the time spent on counseling, education, and coordination of care with nursing staff and telephone discussion with spouse.
== END 2018-11-19 14:26 | disposition home or self-care (01) ==
LOC: PC 14:25
PROVIDERS: ATTEND Nurse Practitioner
DX: Z51.5 Encounter for palliative care (principal); F01.51 Vascular dementia, unspecified severity, with behavioral disturbance; F41.9 Anxiety disorder, unspecified; J18.9 Pneumonia, unspecified organism; J44.0 Chronic obstructive pulmonary disease with (acute) lower respiratory infection; Z99.81 Dependence on supplemental oxygen; I10 Essential (primary) hypertension; E11.9 Type 2 diabetes mellitus without complications; I69.351 Hemiplegia and hemiparesis following cerebral infarction affecting right dominant side; Z91.81 History of falling; Z79.4 Long term (current) use of insulin; Z66 Do not resuscitate; Z99.3 Dependence on wheelchair; Z79.899 Other long term (current) drug therapy

== ENCOUNTER 2018-12-11 11:45 | Outpatient (CLI) | payer MEDICARE, OTHER, MEDICAID ==
--- NOTE | 2018-12-11 18:47 | CONSULTATION NOTE ---
Palliative Care Follow Up - Referral Referring Provider: Dr Fletcher Time of Visit: Bri 12/11/2018. 11:45 - 12:45 Referral setting: Assisted living ([facility]) Referral Reason: Rash on arm - Information Sources Records reviewed: RN notes reviewed, Previous records reviewed History/Review of Systems obtained from: Patient, Family, Caregiver, Nursing Exam limitations: Clinical condition (Dementia, confabulation) - History of Present Illness Update Brief HPI Update: 73-year-old male h/o CVA 2008, has vascular dementia with behaviors and oxygen- dependent COPD. He was recently hospitalized 11/11/18 -11/17/18 for acute respiratory failure and COPD exacerbation, with sepsis secondary to suspected aspiration pneumonia. He is now back at [facility]. 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 Patient has been in the ED in March 2018, and August 2017, and hospitalized November 11- for aspiration pneumonia and COPD exacerbation. Today he is alert, interactive, and confabulatory. He admits he gets anxious, and "worries too much." He says this is been since his stroke, that he was not that way before the stroke. Discussed reframing, slow breathing techniques to re-center and self-calm. His reports that yesterday was a good day, there was no arguments between them as there often is. She thinks he was noticeably improved, almost like his old self. She brought him a big Mac which she really enjoyed. The patient is ambulatory, but uses a wheelchair, most of the time. He uses a walker occasionally. He is normally continent, but has bouts of diarrhea, with occasional accidents. He has a new pruritic red rash on right upper extremity, with diffuse small red spots. Pt is participating in [facility] PT with [facility]. Nurses notes from [facility] indicate that "fatigue is limiting his potential." Patient does get anxious, as reported by staff, and by patient himself. He is currently on clonazepam 0.5 BID routine. It was previously decreased from 1mg BID by his PCP. Social History - Living Situation Living arrangement: Assisted living ([facility]) Living Situation: With caregiver(s) Support System: He and his , Skye, are both [employer]. The patient was born in [place] and is of Arabic background. They moved to [facility] [place], bought an old, fixer-upper house on 11 acres in [place]. Skye still lives on that same land in [place], though they've sold part of the land off. They raised two sons who were 2.5 and 5 years old when they moved here. The elder son lives in [place], the younger in [place]. 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 Medications/Allergies - Medications Home Medications: Ambulatory Orders Medication Instructions Recorded Confirmed Albuterol Sulfate [Proair Hfa 2 puffs INH Q4H PRN 05/31/16 12/11/18 Inhaler] Aspirin 81 mg PO DAILY 05/31/16 12/11/18 Fluticasone/Vilanterol [Breo 1 puffs INH DAILY 05/31/16 12/11/18 Ellipta 200-25 Mcg INH] Insulin Glargine [Lantus Solostar] 45 unit SUBQ QPM 05/31/16 12/11/18 Ipratropium/Albuterol Sulfate 3 ml INH Q4H PRN 05/31/16 12/11/18 [Iprat-Albut 0.5-3(2.5) mg/3 ml] Tamsulosin [Flomax] 0.4 mg PO DAILY 05/31/16 12/11/18 Tiotropium [place] [Spiriva] 18 mcg PO DAILY 05/31/16 12/11/18 amLODIPine [Norvasc] 5 mg PO DAILY 05/31/16 12/11/18 Cholestyramine/Aspartame 4 gm PO BID #60 packet 12/24/16 12/11/18 [Cholestyramine Light Packet] Bisacodyl Supp [Dulcolax Supp] 10 mg NM DAILY PRN 08/22/18 12/11/18 Ketoconazole 1 applic TOP DAILY PRN MDD Apply 08/22/18 12/11/18 to affected areas Loperamide [Imodium] 2 mg PO .AFTER EA LIQ STOOL PRN 08/22/18 12/11/18 Magnesium Hydroxide [Milk of 30 ml PO DAILY PRN 08/22/18 12/11/18 Magnesia] Melatonin 5 mg PO QPM 08/22/18 12/11/18 Nystatin 1 applic TOP BID 08/22/18 12/11/18 Omeprazole 40 mg PO DAILY 08/22/18 12/11/18 Ondansetron Odt [Zofran Odt] 4 mg TL Q6H PRN #10 tablet 08/22/18 12/11/18 Quetiapine Fumarate 12.5 mg PO QPM 08/22/18 12/11/18 clonazePAM [Clonazepam] 0.5 mg PO BID PRN 08/22/18 12/11/18 Acetaminophen [Tylenol] 650 mg PO TID 11/12/18 12/11/18 Ferrous Gluconate [Iron] 240 mg PO DAILY #30 tablet 11/17/18 12/11/18 Memantine [Namenda] 5 mg PO BID #60 tablet 11/17/18 12/11/18 Metoprolol Succinate [Toprol Xl] 25 mg PO DAILY #30 tablet 11/17/18 12/11/18 Montelukast [Singulair] 10 mg PO QPM #30 tablet 11/17/18 12/11/18 cloNIDine 0.2 MG PATCH 1 patch TOP Q7D #4 patch 11/17/18 12/11/18 [[id number]] Acetaminophen 650 mg PO Q6H PRN MDD NTE 3000mg 12/11/18 12/11/18 in 24 hrs Hydrocortisone 2.5% Cream 1 ea TOP BID MDD until resolved 12/11/18 12/11/18 Morphine Sulfate [Morphine Sulf 0.25 ml PO Q4H PRN 12/11/18 12/11/18 Oral (Roxanol)] Polyethylene Glycol 3350 [Miralax] 17 g PO DAILY PRN 12/11/18 12/11/18 - Allergies Allergies/Adverse Reactions: Allergies Allergy/AdvReac Type Severity Reaction Status Date / Time Sulfa (Sulfonamide Allergy Intermediate Nausea Verified 11/11/18 13:55 Antibiotics) felodipine AdvReac Intermediate Dizziness Verified 11/11/18 13:55 fenofibrate nanocrystallized AdvReac Intermediate Cramps Verified 11/11/18 13:55 * [From Tricor] fenofibrate,micronized * AdvReac Intermediate Cramps Verified 11/11/18 13:55 [From Tricor] losartan [Losartan] AdvReac Intermediate Respiratory Verified 11/11/18 13:55 metoprolol AdvReac Intermediate Respiratory Verified 11/11/18 13:55 minoxidil AdvReac Intermediate Emesis Verified 11/11/18 13:55 clonidine AdvReac Mild Cramps Verified 11/11/18 13:55 donepezil [Donepezil] AdvReac Unknown Unknown Verified 11/11/18 13:55 iodine AdvReac Unknown Unknown Verified 11/11/18 13:55 furosemide AdvReac Nausea Verified 11/11/18 13:55 haloperidol AdvReac Hallucinati Verified 11/11/18 13:55 ons hydrochlorothiazide AdvReac Emesis Verified 11/11/18 13:55 Review of Systems - Constitutional Constitutional: reports: Weight stable (210.2 lbs 12/11/18. 212 lbs 12/04/18. 214 lbs 11/27/18. 209 11/20/18. 207.9 lbs (94.5kg, 29.9 BMI) 11/11/2018. 222.8 lbs 08/21/18. 218 lbs 08/14/18. 217.8 lbs 08/07/18. Previous range was 188-198 lbs from October to February 2018.). denies: Poor appetite - Eyes Eyes: reports: Vision loss - Ears, Nose & Throat Ears, Nose & Throat: reports: Hearing loss. denies: Hearing aids - Cardiovascular Cardiovascular: reports: Exertional dyspnea, Decr. exercise tolerance - Respiratory Respiratory: reports: SOB with exertion (continual O2 2.5L) - Gastrointestinal Gastrointestinal: reports: Diarrhea (episodic loose stools, diarrhea). denies: Constipation - Genitourinary Genitourinary: denies: Incontinence - Musculoskeletal Musculoskeletal: reports: Limited range of motion, Assistive devices (wheelchair), Transfer issues - Integumentary Integumentary: reports: Rash (RUE, pruritic), Pruritis, Other (bruising LUE, likely from hospitalization) - Psychiatric Psychiatric: reports: Anxiety, Aggitation - Endocrine Endocrine: reports: Diabetes type 2 - Hematologic/Lymphatic Hematologic/Lymphatic: reports: Bruising Physical Exam - Vital Signs Temperature: 95.9 F Pulse Rate: 53 O2 Saturation: 98 (2.5L O2) Blood Pressure: 161/86 (wrist cuff) - Physical Exam General Appearance: positive: No acute distress, Alert, Other (relaxed, calm) ENT: positive: No signs of dehydration Neck: positive: Trachea midline Cardiovascular: positive: Regular rate & rhythm Respiratory: positive: Diminished throughout, Wheezes (mild). negative: Rales, Rhonchi Abdomen: positive: Obese Skin: positive: Bruising (on LUE, possibly from IV in the hospital), Rash (right upper extremity, with diffuse, small red spots, surrounding skin pink from scratching) Extremities: positive: Pedal edema (2+, compression stockings) Neurologic/Psychiatric: positive: Mood/affect nml, Disoriented to place, Disoriented to time Palliative Care - POLST Patient has POLST: Yes POLST Status: DNR, Comfort Measures Constipation: No Performance Status: Able to do limited ambulation, but mostly uses wheelchair, and occasionally the walker Is mostly incontinent Episodic loose stools, with rare bowel "accidents" On continual oxygen - Palliative Care Discussion: Goal is to avoid future hospitalizations for the patient, keeping him as comfortable as possible at [facility], and not pursuing any life-prolonging medical care. Spouse is supportive of transition to Hospice when criteria are met. She has witnessed his steady decline over time, and realistically expects continued decline. She did notice that yesterday when she saw him he had improved, seemed more like his old self. Spouse spoke about her own health and that she has not felt well lately. She believes it is stress-related, and she plans to follow up with her own PCP. Spoke with patient who recognizes he is anxious and worries about things, but is vague and lacks insight and capacity to for increased insight. Discussed with him breathing techniques for relief of anxiety, he verbalized understanding, but his dementia and short-term memory deficits prevent patient from being able to utilize these techniques appropriately. Staff hopefully use redirection. Impression and Recommendations - Palliative Care Impression: 73-year-old male h/o CVA 2008, has vascular dementia with behaviors and oxygen- dependent COPD. He was hospitalized last month for acute respiratory failure and COPD exacerbation, with sepsis secondary to suspected aspiration pneumonia. He is now has comfort medications in his "toolbox" at [facility]. Spouse wants to avoid future transfers to ED/hospital. Family supports transition to Hospice when medical criteria are met. She has noted improvement yesterday, patient was "like his old self." Recommendations/Counseling Done: Vascular dementia with behaviors: Stable within context of steady decline. Continue quetiapine 12.5mg QPM for agitation. General weakness: Patient on HH PT with [facility]. PT notes indicate his potential is limited by fatigue. Anxiety: Chronic. Change clonazepam from 0.5mg BID routine to 0.5mb BID as needed, as a trial GDR attempt to wean off benzodiazepine. Patient has PRN morphine solution for SOA, agitation. Staff to monitor and notify [employer] of PRN clonazepam usage and if anxiety escalates. Constipation, opioid induced: None reported. Start Miralax 17g daily PRN. COPD, oxygen dependent: Chronic SOA, oxygen dependent, back around 2.5 L after increased usage due to his pneumonia and COPD exacerbation. Continue Singulair, Breo, Spiriva, Duonebs nebulizer PRN, and Proair/albuterol inhaler as needed. Rash, R upper extremity: Start hydrocortisone 2.5% cream. Apply BID to RUE until rash resolved, then use BID PRN. Advance care planning: POLST is DNR and comfort care. Spouse wants patient to remain at [facility], avoid future transfers to hospital. He has "comfort kit" with morphine sulfate stephanie 0.25mL Q4h PRN for agitation and respiratory distress as needed. Will trial weaning off clonazepam by switching from BID routine to BID PRN. May also wean off quetiapine in the future. Staff to follow up with palliative care re effects on his anxiety of switching clonazepam to PRN from routine, and using morphine for anxiety. Time Spent: 60 minutes were spent with more than 50% of the time spent on counseling, education, and coordination of care with nursing staff and telephone call with spouse.
== END 2018-12-11 11:46 | disposition home or self-care (01) ==
LOC: PC 11:45
PROVIDERS: ATTEND Nurse Practitioner
DX: Z51.5 Encounter for palliative care (principal); I69.311 Memory deficit following cerebral infarction; F01.51 Vascular dementia, unspecified severity, with behavioral disturbance; R53.1 Weakness; R53.83 Other fatigue; F41.9 Anxiety disorder, unspecified; J44.9 Chronic obstructive pulmonary disease, unspecified; R21 Rash and other nonspecific skin eruption; L29.9 Pruritus, unspecified; I10 Essential (primary) hypertension; E11.9 Type 2 diabetes mellitus without complications; I69.351 Hemiplegia and hemiparesis following cerebral infarction affecting right dominant side; Z79.899 Other long term (current) drug therapy; Z99.3 Dependence on wheelchair; Z99.81 Dependence on supplemental oxygen; Z87.01 Personal history of pneumonia (recurrent); Z79.4 Long term (current) use of insulin; Z79.51 Long term (current) use of inhaled steroids; Z66 Do not resuscitate; Z86.19 Personal history of other infectious and parasitic diseases

== ENCOUNTER 2019-01-15 11:20 | Outpatient (CLI) | payer MEDICARE, OTHER, MEDICAID ==
--- NOTE | 2019-01-15 18:15 | CONSULTATION NOTE ---
Palliative Care Follow Up - Referral Referring Provider: Dr Fletcher Time of Visit: Bri 01/15/2019. 11:20 - 12:00 Referral setting: Assisted living ([facility]) Referral Reason: Sudden change of status, pneumonia - Information Sources Records reviewed: RN notes reviewed History/Review of Systems obtained from: Patient, Family, Nursing Exam limitations: Clinical condition (dementia; delirium) - History of Present Illness Update Brief HPI Update: 73-year-old male h/o CVA 2008, has vascular dementia with behaviors and oxygen- dependent COPD. He has had numerous ED visits for COPD/pneumonia, and was hospitalized mid-November for aspiration pneumonia and COPD exacerbation. 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 Patient has an acute, significant change of status since about 3:30am today. Last night it was reported that he fell. This morning he has acute change of mental status, is not recognizing his family, and appears in delirium. He has loose, rattling breath, increased respiration rate, low fever (98.9 per facility), diaphoretic, and new dysphagia. Weight is stable, currently 207 lbs. Patient is in bed, lethargic, does respond to me when I enter the room. His and 2 adult sons are present, and say this is the most alert they had seen him since they arrived in the morning He has rales bilaterally, and rhonci. Nursing has been giving him liquid morphine for comfort and his shortness of air; CLERK [employer] increased the timing to every 2 hours as needed. Patient is moaning persistently, responds yes when I ask if he is in pain, but is unable to provide more information. I did request another dose of morphine for his comfort and SOA. The room is warm and stuffy, the patient is diaphoretic. bakery worker is in the process of setting up a fan in his room during this assessment. Social History - Living Situation Living arrangement: Assisted living ([facility]) Living Situation: With caregiver(s) Support System: He and his , Skye, are both [place] Seattlites. The patient was born in [place] and is of [place] background. They moved to [facility] [place], bought an old, fixer-upper house on 11 [address] in [place]. Skye still lives on that same land in [place], though they've sold part of the land off. They raised two sons who were 2.5 and 5 years old when they moved here. The elder son lives in [place], the younger in [place]. 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 Both sons, Kevin and Maria E, are present at today's visit. Medications/Allergies - Medications Home Medications: Ambulatory Orders Medication Instructions Recorded Confirmed Albuterol Sulfate [Proair Hfa 2 puffs INH Q4H PRN 05/31/16 01/15/19 Inhaler] Aspirin 81 mg PO DAILY 05/31/16 01/15/19 Fluticasone/Vilanterol [Breo 1 puffs INH DAILY 05/31/16 01/15/19 Ellipta 200-25 Mcg INH] Insulin Glargine [Lantus Solostar] 45 unit SUBQ QPM 05/31/16 01/15/19 Ipratropium/Albuterol Sulfate 3 ml INH Q4H PRN 05/31/16 01/15/19 [Iprat-Albut 0.5-3(2.5) mg/3 ml] Tamsulosin [Flomax] 0.4 mg PO DAILY 05/31/16 01/15/19 Tiotropium [place] [Spiriva] 18 mcg PO DAILY 05/31/16 01/15/19 amLODIPine [Norvasc] 5 mg PO DAILY 05/31/16 01/15/19 Cholestyramine/Aspartame 4 gm PO BID #60 packet 12/24/16 01/15/19 [Cholestyramine Light Packet] Bisacodyl Supp [Dulcolax Supp] 10 mg SC DAILY PRN 08/22/18 01/15/19 Ketoconazole 1 applic TOP DAILY PRN MDD Apply 08/22/18 01/15/19 to affected areas Loperamide [Imodium] 2 mg PO .AFTER EA LIQ STOOL PRN 08/22/18 01/15/19 Magnesium Hydroxide [Milk of 30 ml PO DAILY PRN 08/22/18 01/15/19 Magnesia] Melatonin 5 mg PO QPM 08/22/18 01/15/19 Nystatin 1 applic TOP BID PRN 08/22/18 01/15/19 Omeprazole 40 mg PO DAILY 08/22/18 01/15/19 Ondansetron Odt [Zofran Odt] 4 mg TL Q6H PRN #10 tablet 08/22/18 01/15/19 Quetiapine Fumarate 12.5 mg PO QPM 08/22/18 01/15/19 clonazePAM [Clonazepam] 0.5 mg PO BID PRN 08/22/18 01/15/19 Acetaminophen [Tylenol] 650 mg PO TID 11/12/18 01/15/19 Ferrous Gluconate [Iron] 240 mg PO DAILY #30 tablet 11/17/18 01/15/19 Memantine [Namenda] 5 mg PO BID #60 tablet 11/17/18 01/15/19 Metoprolol Succinate [Toprol Xl] 25 mg PO DAILY #30 tablet 11/17/18 01/15/19 Montelukast [Singulair] 10 mg PO QPM #30 tablet 11/17/18 01/15/19 cloNIDine 0.2 MG PATCH 1 patch TOP Q7D #4 patch 11/17/18 01/15/19 [[id number]] Acetaminophen 650 mg PO Q6H PRN MDD NTE 3000mg 12/11/18 01/15/19 in 24 hrs Hydrocortisone 2.5% Cream 1 ea TOP BID PRN MDD until resolved 12/11/18 01/15/19 Morphine Sulfate [Morphine Sulf 0.25 ml PO Q2H PRN 12/11/18 01/15/19 Oral (Roxanol)] Polyethylene Glycol 3350 [Miralax] 17 g PO DAILY PRN 12/11/18 01/15/19 LORazepam [Ativan] 0.25 ml PO Q2H PRN 01/15/19 01/15/19 Secura Dimethicone 5% Cream 1 ea SC BID PRN 01/15/19 - Allergies Allergies/Adverse Reactions: Allergies Allergy/AdvReac Type Severity Reaction Status Date / Time Sulfa (Sulfonamide Allergy Intermediate Nausea Verified 11/11/18 13:55 Antibiotics) felodipine AdvReac Intermediate Dizziness Verified 11/11/18 13:55 fenofibrate nanocrystallized AdvReac Intermediate Cramps Verified 11/11/18 13:55 * [From Tricor] fenofibrate,micronized * AdvReac Intermediate Cramps Verified 11/11/18 13:55 [From Tricor] losartan [Losartan] AdvReac Intermediate Respiratory Verified 11/11/18 13:55 metoprolol AdvReac Intermediate Respiratory Verified 11/11/18 13:55 minoxidil AdvReac Intermediate Emesis Verified 11/11/18 13:55 clonidine AdvReac Mild Cramps Verified 11/11/18 13:55 donepezil [Donepezil] AdvReac Unknown Unknown Verified 11/11/18 13:55 iodine AdvReac Unknown Unknown Verified 11/11/18 13:55 furosemide AdvReac Nausea Verified 11/11/18 13:55 haloperidol AdvReac Hallucinati Verified 11/11/18 13:55 ons hydrochlorothiazide AdvReac Emesis Verified 11/11/18 13:55 Review of Systems - Constitutional Constitutional: reports: Fever (lowgrade 98.9), Weakness, Diaphoresis, Weight stable (207.6 lbs 01/08/19. Range has been 207-222 lbs.), Other (ill-appearing, delirious, lethargic) - Ears, Nose & Throat Ears, Nose & Throat: reports: Hearing loss. denies: Hearing aids, Postnasal drainage - Respiratory Respiratory: reports: SOB at rest, Other (labored breathing) - Gastrointestinal Gastrointestinal: reports: Other (dysphagia) - Neurological Neurological: reports: General weakness, Memory problems, Other (unintelligible speech) - Psychiatric Psychiatric: reports: Anxiety, Other - Other Findings Other Findings: focal ROS Physical Exam - Vital Signs Temperature: 98.9 F (per RN's thermometer) Pulse Rate: 102 O2 Saturation: 97 Blood Pressure: 126/60 - Physical Exam General Appearance: positive: Moderate distress, Lethargic, Other (ill appearing, diaphoretic) Eyes Bilateral: positive: No lid inflammation, Conjunctivae nml, No scleral icterus ENT: positive: Dry mucous membranes Neck: positive: Trachea midline Cardiovascular: positive: No murmur, Tachycardia (mildly (102)) Respiratory: positive: Chest non-tender, Rales (bilaterally), Rhonchi (audible rattling breath sounds), Other (moderately rapid breath). negative: Wheezes Abdomen: positive: Obese Skin: positive: Pallor, Diaphoresis, Other (warm extremities; later they had cooled) Neurologic/Psychiatric: positive: Disoriented to person, Disoriented to place, Disoriented to time, Weakness, Unintelligible speech Palliative Care - POLST Patient has POLST: Yes POLST Status: DNR, Comfort Measures - Palliative Care Discussion: Spouse has confirmed previously that she wants to avoid any future hospitalizations for the patient, and to not pursue life-prolonging medical care. She has watched his steady decline over the years since his CVA, and she realized that he would simply continue to decline, and that she couldn't expect his condition to improve. Today with her sons in agreement, she believes he hasn't been enjoying his life and his quality of life is not what he would wish for. One of his sons spoke said that the patient has talked about being ready to go, and letting him go. The younger son, Kevin, remarked that it's easy to talk about going into Hospice when it's not happening in front of you and is only a theory. Once you see the person suffering, the urge is to send them to the hospital to relieve their suffering. We did discuss how in the long run going back and forth for repeated hospitalizations can be more traumatic and cause more suffering. If the patient himself were standing here, and could see himself going through the suffering that he is going through, would he want that, or would he want to receive comfort care. The family believes he would want comfort care, and his sons agreed with their mother about not sending him in to the ED for treatment of presumed aspiration pneumonia. They want to transition him to comfort care and Hospice. Impression and Recommendations - Palliative Care Impression: 73-year-old male h/o CVA 2008, has vascular dementia with behaviors and oxygen- dependent COPDm history of recurrent ED visits and hospitalization for pneumonia and COPD exacerbations. He has had a sudden change of condition, presumed aspiration pneumonia. His spouse and sons do not want to pursue curative treatment or send him to hospital. they elect comfort care and transitioning him to Hospice, since he meets the medical criteria and Hospice corresponds [facility] is referring this patient to Hospice. Recommendations/Counseling Done: COPD, oxygen dependent: Sudden, acute change in condition, low grade fever, dysphagia. Presumed aspiration pneumonia. Patient remains on continuous oxygen, currently 2.5 L. Has morphine solution for relief of symptoms of shortness of air. Increased the timing from Q4h to Q2hr PRN. Anxiety: Chronic. He has clonazepam. Added lorazepam solution 2mg/mL, give 0.25mL (0.5mg) Q2hrs as needed for anxiety and agitation. Advance care planning: Palliative Care is referrnig this patient to Hospice. Family's goals of care are to avoid hospitalization and transition to comfort care and Hospice when medical criteria are met. Started lorazepam for anxiety and restlessness, and continue morphine solution for SOA, restlessness and pain. Time Spent: 40 minutes were spent with more than 50% of the time spent on counseling, support of the family, and providing anticipatory guidance on pneumonia, end of life transition and Hospice.
== END 2019-01-15 11:21 | disposition home or self-care (01) ==
LOC: PC 11:20
PROVIDERS: ATTEND Nurse Practitioner
DX: Z51.5 Encounter for palliative care (principal); R50.9 Fever, unspecified; R06.89 Other abnormalities of breathing; R09.89 Other specified symptoms and signs involving the circulatory and respiratory systems; R13.10 Dysphagia, unspecified; R00.0 Tachycardia, unspecified; R61 Generalized hyperhidrosis; R41.0 Disorientation, unspecified; R53.83 Other fatigue; J44.9 Chronic obstructive pulmonary disease, unspecified; F41.9 Anxiety disorder, unspecified; F01.51 Vascular dementia, unspecified severity, with behavioral disturbance; I10 Essential (primary) hypertension; E11.9 Type 2 diabetes mellitus without complications; I69.351 Hemiplegia and hemiparesis following cerebral infarction affecting right dominant side; Z91.81 History of falling; Z99.81 Dependence on supplemental oxygen; Z79.4 Long term (current) use of insulin; Z79.899 Other long term (current) drug therapy; Z79.51 Long term (current) use of inhaled steroids; Z79.82 Long term (current) use of aspirin; Z66 Do not resuscitate; Z87.01 Personal history of pneumonia (recurrent)